=== PATIENT | female | born 1970 | race African-American/Black ===

== ENCOUNTER → 2020-12-07 13:01 | Outpatient (BNV) | payer OTHER, SELFPAY | PROVIDERS: PCP Internal Medicine; Referring Provider Internal Medicine; Visit Provider Internal Medicine Medical Oncology | DX: Z85.3 Personal history of malignant neoplasm of breast (principal); Z92.21 Personal history of antineoplastic chemotherapy; D50.9 Iron deficiency anemia, unspecified | CPT/HCPCS: 99204; 99213; 99214 ==

== ENCOUNTER 2021-04-01 13:31 | Outpatient (REF) | payer OTHER, SELFPAY | END 2021-04-01 13:32 | disposition home or self-care (01) | LOC: HO.MDS 13:31 | PROVIDERS: PCP Internal Medicine; Visit Provider Internal Medicine Medical Oncology | DX: D50.9 Iron deficiency anemia, unspecified (principal) | CPT/HCPCS: 96365; J1439 ==

== ENCOUNTER 2021-04-07 13:09 | Outpatient (REF) | payer OTHER, SELFPAY | END 2021-04-07 13:10 | disposition home or self-care (01) | LOC: HO.MDS 13:09 | PROVIDERS: PCP Internal Medicine; Visit Provider Internal Medicine Medical Oncology | DX: D50.9 Iron deficiency anemia, unspecified (principal) | CPT/HCPCS: 96365; J1439 ==

== ENCOUNTER → 2021-04-29 14:14 | Outpatient (BNVA) | payer OTHER, SELFPAY | PROVIDERS: PCP Internal Medicine; Referring Provider Internal Medicine; Visit Provider Nurse Practitioner Family | DX: Z12.11 Encounter for screening for malignant neoplasm of colon (principal) | CPT/HCPCS: 99202 ==

== ENCOUNTER 2021-07-15 13:08 | Day surgery (SDC) | payer OTHER, SELFPAY ==
--- NOTE | 2021-07-15 13:18 | MHC.SHP ---
Pre-Procedural Eval Section A Date of Service: 07/15/21 The patient is an INPATIENT: No The History & Physical has been completed within 30 days and I have reviewed it.: No Section B Chief Complaint: Screening Details of Present Illness: Colon cancer screening, anemia, abdominal pain Relevant Family History (Specify if Yes): Yes Relevant Social History: None Present Medications: see Short Stay Collaborative assessment Medical History: Significant History (History of anxiety History of pancytopenia History of seizures History of vitamin D deficiency Hx of alopecia Hx of breast cancer Hx of chronic inflammatory arthritis Hx of low back pain Hx of seasonal allergies Hx of sinusitis Hx of transfusion Seroma of breast) History of Previous Operations: Relevant previous surgery/procedure and date(s) (History of removal of Port-a-Cath Hx of section Hx of hysterectomy Hx of lumpectomy Hx of lymph node excision) Allergies: Allergies Allergy/AdvReac Type Severity Reaction Status Date / Time Penicillins Allergy Unknown Unknown Verified 07/11/21 15:57 minocycline AdvReac Unknown Unknown Verified 07/11/21 15:57 oxycodone [From Percocet] AdvReac Unknown Unknown Verified 07/11/21 15:57 Review of Systems Sugical H&P ROS: Negative: Constitution, Cardiovascular and Respiratory and Yes, Specify: Gastrointestinal (abd pain) Exam Surgical H&P Exam: Normal: Heart, Normal: Lungs, Normal: Extremities and Normal: Abdomen Plan Diagnosis/Plan: Unchanged I have reviewed the history and physical and performed a pertinent physical examination on my patient. No changes have occurred unless specified.
[2021-07-15 14:04] VITALS: BMI 25.7
[2021-07-15 14:19] VITALS: BP 125/77; PULSE 87; RESP 15; TEMP 36.2; O2SAT 100
--- NOTE | 2021-07-15 14:54 | HO.ANESPROP2 ---
HPI - Anesthesia Eval Consult details Narrative: 50yo female patient for EGD, Colonoscopy PMFSH Active Problems Active Problems: All Active Problems (Updated 07/15/21 @ 12:24 by Isidro Cerna MD) Breast cancer (Acute) Iron deficiency anemia (Acute) Past Medical History Medical History History of anxiety History of COVID-19 History of pancytopenia History of seizures History of vitamin D deficiency Hx of alopecia Hx of breast cancer Hx of chronic inflammatory arthritis Hx of low back pain Hx of seasonal allergies Hx of sinusitis Hx of transfusion Seroma of breast Family History Family History Mother Diabetes Hypertension Asthma Father Diabetes Paternal Grandfather Colon cancer Diabetes Hypertension Paternal Grandmother Diabetes Hypertension Maternal Grandmother Diabetes Hypertension Brother Diabetes Family history of problems with anesthesia: No Surgical History Surgical History History of removal of Port-a-Cath Hx of section Hx of hysterectomy Hx of lumpectomy Hx of lymph node excision History of Problems with Anesthesia: Yes (Ponv) Social History Social History Alcohol intake: former Patient Tobacco Use Status: Never used Tobacco Use of substances other than those prescribed or required for medical reasons: No Are you DNR?: No Advance Directives: No Advance Directives Information Provided: Yes Patient : No (Hysterectomy) Meds Allergies Allergy/AdvReac Type Severity Reaction Status Date / Time Penicillins Allergy Unknown Unknown Verified 07/11/21 15:57 minocycline AdvReac Unknown Unknown Verified 07/11/21 15:57 oxycodone [From Percocet] AdvReac Unknown Unknown Verified 07/11/21 15:57 Home Medications Medication Instructions Recorded Confirmed Last Taken Type anastrozole 1 mg tablet 1 tab PO DAILY 12/07/20 07/11/21 Unknown History cetirizine 10 mg tablet (Zyrtec) 10 mg PO DAILY 12/07/20 07/11/21 Unknown History lactobacillus combination no.4 3 3,000 mmu cells PO DAILY 12/07/20 07/11/21 Unknown History billion cell capsule (Probiotic) turmeric 400 mg capsule 400 mg PO DAILY 12/07/20 12/07/20 Unknown History ergocalciferol (vitamin D2) 1,250 cap PO 03/08/21 03/08/21 Unknown History mcg (50,000 unit) capsule Exam Exam Date and Time: July 15, 2021 1454 Height,Weight and Vital Signs: Height 5 ft 2 in Weight 63.957 kg Last Vital Signs Temp 97.1 F 07/15/21 14:19 Pulse 87 07/15/21 14:19 Resp 15 07/15/21 14:19 BP 125/77 07/15/21 14:19 Pulse Ox 100 07/15/21 14:19 Airway Mallampati Class: II TM Dist: >3cm Neck ROM: Full Loose/Missing/Broken Teeth: Yes (Missing a few) Heart: RRR Lungs: CTAB Assessment and Plan Assessment Anesthesia Assessment: Anesthesia Plan Discussed and Chart Reviewed Final Anesthetic Review Family History of Problems with Anesthesia: No History of Problems with Anesthesia: Yes (Ponv) NPO: Yes ASA Class: II Final Preanesthetic Review: No Changes in Pt Med Stat, Meds/Allgs Chart Reviewed, Consent Obtained/Reviewed and Anes Risks/Benef Reviewed Patient Risk: Low Procedure Risk: Low Assessment/Block/Sedation in SS: Assess/Block/Sedation-SS Anesthetic Plan Anesthetic Plan: MAC: Disposition: Standard PACU
--- NOTE | 2021-07-15 15:37 | PM.OP ---
Brief Operative Note Date of Service: 07/15/21 Pre-op diagnosis: Colon cancer screening, anemia, upper abdominal pain Post-op diagnosis: other (Gastritis, diverticulosis, hemorrhoids) Procedure: FLEXIBLE TRANSORAL UPPER GASTROINTESTINAL ENDOSCOPY WITH BIOPSIES AND COLONOSCOPY TILL CECUM UPPER ENDOSCOPY Consent: Indications for the procedure and potential complications of bleeding, perforation, reaction to medications and missed diagnosis were discussed with the patient and informed consent was obtained. Instrument: Olympus GIF H 190 mid size upper endoscope Monitoring: Vital signs and clinical assessment, continuous EKG monitoring, Pulse oximetry, Carbon Dioxide monitoring and blood pressure monitoring were done throughout the procedure. Procedure: The patient was placed in the left lateral decubitis position and pre-procedure medications were administered and a bite block was placed. The endoscope was inserted into the mouth and advanced under direct vision to the third part of duodenum. A careful inspection was made as the upper endoscope was withdrawn including a retroflexed examination of the proximal stomach; Findings and interventions are described below. Findings: Larynx: Normal Esophagus: GE junction at 36 cms. No esophagitis or Ruffin's. Stomach: Mild gastric erythema. Biopsies were obtained from the antrum and body of the stomach. Decreased fundal folds and Grade 2 flap valve on retroflexed examination of the cardia. Duodenum: Normal bulb and descending duodenum. Biopsies were obtained from 3rd part of duodenum to check for celiac sprue. Intervention: Biopsies as noted above COLONOSCOPY PROCEDURE NOTE Consent: Indications for the procedure and potential complications of bleeding, perforation, reaction to medications and missed diagnosis were discussed with the patient and informed consent was obtained. Instrument: Olympus PCF H 190 L variable stiffness pediatric colonoscope Monitoring: Vital signs and clinical assessment, intermittent blood pressure monitoring, continuous EKG monitoring, Pulse oximetry and Carbon Dioxide monitoring were done throughout the procedure. Colon withdrawl time was 11 minutes. Procedure: The patient was placed in the left lateral decubitis position and pre-procedure medications were administered. After a digital rectal examination of the ano-rectum, the video colonoscope was inserted into the rectum and advanced through the colon to the cecum. The colonoscope was slowly withdrawn in a retrograde panoramic fashion and the colon mucosa was carefully examined including a retroflexed view of the rectum. Findings and interventions are described below. Procedure Difficulty: : Without difficulty Findings: Terminal Ileum: Not evaluated Cecum: Normal Ascending Colon: Normal Transverse Colon: Normal Descending Colon: Moderate diverticulosis Sigmoid Colon: Moderate diverticulosis Rectum: Normal Ano-rectum: Small internal hemorrhoids in hypertrophied anal papilla Colon preparation: Good Impression and Post Procedure Diagnosis: Endoscopy Findings: STOMACH: Mild gastric erythema. Biopsies were obtained from the antrum and body of the stomach. Decreased fundal folds (suggestive of atrophic gastritis) and Grade 2 flap valve on retroflexed examination of the cardia. DUODENUM: Normal - biopsied to check for celiac sprue Colonoscopy Findings: No polyps were detected. Moderate diverticulosis seen in the left colon Small hemorrhoids on retroflexed exam. Plan: Await pathology results Patient has an appointment on 07/26/21 in the GI Clinic with Natalya Patino FNP-BC . Repeat Colonoscopy in 5 years due to personal history of breast cancer and FH of colon cancer. Above findings were reviewed with the patient and Gastritis and diverticulosis handouts were given in the discharge area Surgeon: Taurus Guerra MD Anesthesia: MAC Was an Relay Shop Supervisor used for this Procedure?: Yes Relay Shop Supervisor: Cristofer Bullock Estimated blood loss (mL): 0 Pathology: other (A- SMALL BOWEL BXS R/O SPRU B- GASTRIC ANTRUM BXS R/O H.PYLORI C- GASTRIC BODY BXS R/O GASTRITIS) Condition: stable Disposition: PACU
--- NOTE | 2021-07-15 15:38 | W.PM.OPN ---
Operative Note Operative Note Date of Service: 07/15/21 Narrative: Pre-op diagnosis:?Colon cancer screening, anemia, upper abdominal pain Post-op diagnosis:?other (Gastritis, diverticulosis, hemorrhoids) Procedure:? FLEXIBLE TRANSORAL UPPER GASTROINTESTINAL ENDOSCOPY WITH BIOPSIES AND COLONOSCOPY TILL CECUM UPPER ENDOSCOPY Consent:?Indications for the procedure and potential complications of bleeding, perforation, reaction to medications and missed diagnosis were discussed with the patient and informed consent was obtained. Instrument:?Olympus GIF H 190 mid size upper endoscope Monitoring: Vital signs and clinical assessment, continuous EKG monitoring, Pulse oximetry, Carbon Dioxide monitoring and blood pressure monitoring were done throughout the procedure. Procedure:?The patient was placed in the left lateral decubitis position and pre-procedure medications were administered and a bite block was placed. The endoscope was inserted into the mouth and advanced under direct vision to the third part of duodenum. A careful inspection was made as the upper endoscope was withdrawn including a retroflexed examination of the proximal stomach; Findings and interventions are described below. Findings: Larynx:? Normal Esophagus:?GE junction at 36 cms.? No esophagitis or Ruffin's. Stomach:?Mild gastric erythema. Biopsies were obtained from the antrum and body of the stomach. Decreased fundal folds and Grade 2 flap valve on retroflexed examination of the cardia. Duodenum:?Normal bulb and descending duodenum.? Biopsies were obtained from 3rd part of duodenum to check for celiac sprue. Intervention:?Biopsies as noted above COLONOSCOPY PROCEDURE NOTE Consent:?Indications for the procedure and potential complications of bleeding, perforation, reaction to medications and missed diagnosis were discussed with the patient and informed consent was obtained. Instrument:?Olympus PCF H 190 L variable stiffness pediatric colonoscope Monitoring:?Vital signs and clinical assessment, intermittent blood pressure monitoring, continuous EKG monitoring, Pulse oximetry and Carbon Dioxide monitoring were done throughout the procedure. Colon withdrawl time was 11 minutes. Procedure:?The patient was placed in the left lateral decubitis position and pre-procedure medications were administered. After a digital rectal examination of the ano-rectum, the video colonoscope was inserted into the rectum and advanced through the colon to the cecum. The colonoscope was slowly withdrawn in a retrograde panoramic fashion and the colon mucosa was carefully examined including a retroflexed view of the rectum. Findings and interventions are described below. Procedure Difficulty:?: Without difficulty Findings: Terminal Ileum: Not evaluated Cecum:? Normal Ascending Colon:??Normal Transverse Colon:??Normal Descending Colon: Moderate diverticulosis Sigmoid Colon:??Moderate diverticulosis Rectum:??Normal Ano-rectum:??Small internal hemorrhoids in hypertrophied anal papilla Colon preparation:? Good? Impression and Post Procedure Diagnosis: Endoscopy Findings: STOMACH:?Mild gastric erythema. Biopsies were obtained from the antrum and body of the stomach. Decreased fundal folds (suggestive of atrophic gastritis) and Grade 2 flap valve on retroflexed examination of the cardia. DUODENUM: Normal - biopsied to check for celiac sprue Colonoscopy Findings: No polyps were detected. Moderate diverticulosis seen in the left colon Small hemorrhoids on retroflexed exam. Plan: Await pathology results Patient has an appointment on 07/26/21 in the GI Clinic with? Natalya Patino FNP-ALINA . Repeat Colonoscopy in 5 years due to personal history of breast cancer and FH of colon cancer. Above findings were reviewed with the patient and Gastritis and diverticulosis handouts were given in the discharge area Surgeon:?Taurus Guerra MD Anesthesia:?MAC Was an Commercial Sales Consultant used for this Procedure?:?Yes Commercial Sales Consultant:?Cristofer Bullock Estimated blood loss (mL):?0 Pathology:?other (A- SMALL BOWEL BXS? R/O SPRU? B- GASTRIC ANTRUM BXS? R/O H.PYLORI? C- GASTRIC BODY BXS? R/O GASTRITIS) Condition:?stable Disposition:?PACU
[2021-07-15 16:20] VITALS: BP 82/46; PULSE 86; RESP 12; TEMP 36.9; O2SAT 99
== END 2021-07-15 17:12 | disposition home or self-care (01) ==
PROVIDERS: PCP Internal Medicine; Visit Provider Internal Medicine Gastroenterology
PROC: (CPT 45378; principal; 2021-07-15 13:30)
DX: Z12.11 Encounter for screening for malignant neoplasm of colon (principal); Z80.0 Family history of malignant neoplasm of digestive organs; K57.30 Diverticulosis of large intestine without perforation or abscess without bleeding; K64.8 Other hemorrhoids; K62.89 Other specified diseases of anus and rectum; C50.912 Malignant neoplasm of unspecified site of left female breast; Z17.0 Estrogen receptor positive status [ER+]; Z79.811 Long term (current) use of aromatase inhibitors; D64.9 Anemia, unspecified; K29.50 Unspecified chronic gastritis without bleeding; E55.9 Vitamin D deficiency, unspecified; Z88.0 Allergy status to penicillin; Z88.8 Allergy status to other drugs, medicaments and biological substances; Z86.16 Personal history of COVID-19
CPT/HCPCS: 45378; 43239; 88305; 88342

== ENCOUNTER → 2021-09-16 16:04 | Outpatient (BNVA) | payer OTHER, SELFPAY | PROVIDERS: PCP Internal Medicine; Referring Provider Internal Medicine; Visit Provider Nurse Practitioner Family | DX: K21.9 Gastro-esophageal reflux disease without esophagitis (principal); K57.90 Diverticulosis of intestine, part unspecified, without perforation or abscess without bleeding; R14.0 Abdominal distension (gaseous); K58.2 Mixed irritable bowel syndrome | CPT/HCPCS: 99212 ==

== ENCOUNTER 2021-10-21 14:35 | Inpatient (IN) | payer OTHER, SELFPAY ==
--- NOTE | ~2021-10-21 | CT_ITS ---
EXAMINATION: CT ANGIOGRAM OF THE CHEST WITH AND WITHOUT CONTRAST (CT PULMONARY ANGIOGRAM FOR PE) CLINICAL INFORMATION: Reason for Exam covid +, syncope COMPARISON: None TECHNIQUE: Prior to contrast administration, noncontrast localization images were obtained. Subsequently, multidetector volumetric imaging was performed from the thoracic inlet to below the diaphragms following the administration of 57 mL Omnipaque 350 intravenous contrast. No contrast reaction reported Sagittal, coronal, and MIP oblique sagittal reformatted images were obtained on the CT workstation, uploaded to PACS, and reviewed. This CT examination was performed using dose optimization techniques as appropriate, variously including the following: *Automated exposure control *Adjustment of mA and/or kV according to patient size (this includes techniques or standardized protocols for targeted exams where dose is matched to indication/reason for exam; i.e. extremities or head) *Use of iterative reconstruction technique Total exam dose-length product 153 mGy-cm FINDINGS: QUALITY OF STUDY/CONTRAST BOLUS: Satisfactory. PULMONARY ARTERIES: No central or segmental pulmonary emboli. THORACIC AORTA: No aneurysm or dissection. LUNG: Extensive multifocal airspace opacities with a peripheral and lower lung predominance. In this setting, evaluation of pulmonary nodules is suboptimal. The central airways are patent. PLEURA: No pleural effusion or pneumothorax. MEDIASTINUM: Normal heart size. No pericardial effusion. No hilar or mediastinal lymphadenopathy. No evidence of septal bowing or right heart strain. CHEST WALL/AXILLA: Surgical clips with associated irregular soft tissue thickening in the left breast (8:12). There are a few up to 0.5 cm soft tissue nodules in the right breast for example, as visualized on images 37 and 35 of series 5. There is also asymmetric, likely glandular tissue, in the medial aspect of the right breast on image 29 of series 5. There are prominent but not pathologically enlarged bilateral axillary lymph nodes. OSSEOUS STRUCTURES: No acute or suspicious osseous abnormality. UPPER ABDOMEN: Unremarkable. No reflux of contrast into the hepatic veins to suggest elevated right heart pressures. CT/CT angio chest PE protocol IMPRESSION: No evidence of pulmonary emboli nor increased right-sided heart pressures. Extensive multifocal airspace opacities concerning for a diffuse atypical infectious process such as Covid pneumonia. Indeterminate soft tissue nodularities and postsurgical changes in the breasts for which correlation with prior mammographic examinations is recommended. VTE: negative
--- NOTE | 2021-10-21 14:53 | ECG_ITS ---
Test Reason : SOB Blood Pressure : / mmHG Vent. Rate : 108 BPM Atrial Rate : 108 BPM P-R Int : 128 ms QRS Dur : 068 ms QT Int : 306 ms P-R-T Axes : 073 036 019 degrees QTc Int : 410 ms Sinus tachycardia Otherwise normal ECG No previous ECGs available Referred By: Jammie Mclain Electronically Signed By:CLAUDIA ROACH MD
--- NOTE | 2021-10-21 14:59 | ED.SOB ---
HPI - SOB/Dyspnea General Chief Complaint: Dyspnea Stated Complaint: diff breathing/covid + Time Seen by Provider: 10/21/21 14:38 Source: patient and EMS Mode of arrival: EMS Limitations: no limitations History of Present Illness HPI Narrative: Patient comes to the emergency room complaining of shortness of breath. Patient states that she tested positive for COVID-19 4 days ago. Patient reports that her shortness of breath has gradually began getting worse. Three days ago, patient reports that she had a syncopal episode, states that she was taking a shower, then she woke up on the floor, states she does not know how long she was unconscious. Patient states that she has no chest pain. Patient states that she did not see any blood on the floor from lacerations. Patient has no pain from the fall. Related Data Home Medications Medication Instructions Recorded Confirmed cetirizine 10 mg tablet (Zyrtec) 10 mg PO DAILY PRN 12/07/20 10/21/21 cholecalciferol (vitamin D3) 25 25 mcg PO DAILY 10/21/21 10/21/21 mcg (1,000 unit) tablet (Vitamin D3) elderberry fruit 200 mg capsule 200 mg PO DAILY 10/21/21 10/21/21 Previous Rx's Medication Instructions Recorded anastrozole 1 mg tablet 1 mg PO DAILY #90 tab 10/05/21 Allergies Allergy/AdvReac Type Severity Reaction Status Date / Time Penicillins Allergy Unknown Unknown Verified 09/16/21 16:10 minocycline AdvReac Unknown Unknown Verified 09/16/21 16:10 oxycodone [From Percocet] AdvReac Unknown Unknown Verified 09/16/21 16:10 Review of Systems Review of Systems: Constitutional : No Weight loss, No Fever, No Chills, No Night Sweats, No Fatigue, No Malaise ENT/Mouth : No Hearing loss, No Ear Pain, No Nasal Congestion, No Sinus Pain, No Hoarseness, No sore throat, No Rhinorrhea, No Swallowing Difficulty Eyes: No Eye Pain, No Swelling, No Redness, No Foreign Body, No Discharge, No Vision Changes Cardiovascular : No Chest Pain, no palpitations, no orthopnea Respiratory : Complaining of dry Cough, No Sputum, No Wheezing, No Smoke Exposure, complaining of worsening dyspnea Gastrointestinal : No Nausea, No Vomiting, No Diarrhea, No Constipation, No abdominal Pain, No Hematochezia, No Melena Genitourinary : no irregular bleeding, No Dysuria, No Urinary Frequency, No Hematuria, No Urinary Incontinence, No Urgency, No Flank Pain, No Urinary Flow Changes, No Hesitancy Musculoskeletal : No joint pain, No Myalgias, No Joint Swelling Skin : No Skin Lesions, No rash Neuro : No Weakness, No Numbness, No Paresthesias, no headache, no dizziness, complaining of wound syncopal episode approximately 48 hours ago Psych : No Anxiety/Panic, No Depression, No SI/HI/AH/VH, No Social Issues, Heme/Lymph: No Bruising, No Bleeding,No Lymphadenopathy Endocrine : No Polyuria, No Polydipsia, No Temperature Intolerance [facility] Past Medical History Medical History History of anxiety History of COVID-19 History of pancytopenia History of seizures History of vitamin D deficiency Hx of alopecia Hx of breast cancer Hx of chronic inflammatory arthritis Hx of low back pain Hx of seasonal allergies Hx of sinusitis Hx of transfusion Seroma of breast Surgical History History of esophagogastroduodenoscopy (EGD) History of removal of Port-a-Cath Hx of section Hx of colonoscopy Hx of hysterectomy Hx of lumpectomy Hx of lymph node excision Family History Family History Mother Diabetes Hypertension Asthma Father Diabetes Paternal Grandfather Colon cancer Diabetes Hypertension Paternal Grandmother Diabetes Hypertension Maternal Grandmother Diabetes Hypertension Brother Diabetes Social History Social History Alcohol intake: former Patient Tobacco Use Status: Never used Tobacco Advance Directives: No Advance Directives Information Provided: Yes Physical Exam Vital Signs: Vital Signs: Last Vital Signs Temp 98.7 F 10/21/21 15:51 Pulse 104 H 10/21/21 15:51 Resp 16 10/21/21 15:51 BP 121/79 10/21/21 15:51 Pulse Ox 94 10/21/21 15:51 BMI result Body Mass Index 25.6 Const: Other: Appearance: Alert. Oriented X3. No acute distress. Ill-appearing Eyes: Pupils equal, round and reactive to light. ENT: Pharynx normal. Neck: Normal inspection. Neck supple. No lymph nodes noted. No crepitus CVS: Normal heart rate and rhythm. Pulses normal. Normal S1 and S2 Respiratory: No respiratory distress. Breath sounds normal. No Wheezing. No rales . Oxygen saturation drops to 87% on room air at rest Abdomen: Soft and nontender. No rigidity. No distention. Skin: Skin warm and dry. Normal skin color. Normal skin turgor. Extremities: No lower extremity edema. No Lacerations. No Rash Neuro: Oriented X 3. No motor deficit. No sensory deficit. Moving all extermities. No slurred speech. Course Course Course Narrative: With blood cell count and lactic acid within normal limits, no fever, blood pressure stable. Sepsis is not suspected. Patient is empirically being treated with antibiotics for pneumonia Patient oxygen saturation drops to 87% on room air. Patient's oxygen saturation improved to 94 to 96% on 2 L. I discussed the patient with Dr. Brown. Patient being admitted MDM - SOB/Dyspnea Lab Data Result diagrams: 10/21/21 15:47 10/21/21 15:48 Labs: Lab Results 10/21/21 10/21/21 10/21/21 Range/Units 15:47 15:48 15:48 WBC 6.0 (4.8-10.8) X10*3/uL RBC 3.93 L (4.20-5.50) X10*6/uL Hgb 11.6 L (12.0-16.0) g/dl Hct 34.8 L (37.0-47.0) % MCV 88.5 (80.0-98.0) fL MCH 29.5 (27.0-33.0) pg MCHC 33.3 (31.0-35.0) g/dl RDW 11.9 (11.0-16.0) % Plt Count 197 (160-400) X10*3/uL MPV 9.5 (9.4-12.3) fL Immature Gran % (Auto) 0.3 (0.0-0.4) % Neut % (Auto) 78.5 H (45-73) % Lymph % (Auto) 15.1 L (20-40) % Baxter % (Auto) 5.9 (2-11) % Eos % (Auto) 0.0 (0-4) % Baso % (Auto) 0.2 (0-2) % Lymph # (Auto) 0.9 L (1.2-4.9) X10*3/uL Baxter # (Auto) 0.4 (0.1-1.2) X10*3/uL Eos # (Auto) 0.0 (0.0-0.4) X10*3/uL Baso # (Auto) 0.0 (0.0-0.2) X10*3/uL Abs Immat Gran (auto) 0.02 (0.00-0.03) X10*3/uL Absolute Neuts (auto) 4.7 (2.0-8.3) x10*3/uL Absolute Nucleated RBC 0.000 (0.0-0.012) X10*3/uL Nucleated RBC % (auto) 0.0 (0.0-0.2) /100WBC Smear Tech's Comments VERIFIED PT 14.7 H (9.9-13.0) SEC INR 1.3 H (0.9-1.1) D-Dimer High Sensitivty 357 NG/ML VBG pH (7.32-7.43) VBG pCO2 mmHg VBG pO2 mmHg VBG HCO3 (22-26) mmol/L VBG O2 Saturation % VBG Base Excess mmol/L Sodium 141 (135-145) mmol/L Potassium 3.9 (3.3-5.1) mmol/L Chloride 107 (96-108) mmol/L Carbon Dioxide 23 (22-29) mmol/L Anion Gap 15 (12-20) BUN 14 (9-16) mg/dL Creatinine 0.77 (0.5-1.4) mg/dL Estim Creat Clear Calc 77.4 Estimated GFR > 60 Random Glucose 90 (60-115) mg/dL Lactic Acid (0.5-2.0) mmol/L Calcium 8.6 D (8.4-10.2) mg/dL Ferritin 85642 H (10-250) ng/mL Total Bilirubin 0.5 (0.0-1.0) mg/dL Direct Bilirubin 0.3 (0.0-0.5) mg/dL AST 73 H (5-31) U/L ALT 50 H (0-31) U/L Alkaline Phosphatase 66 D (39-117) U/L Lactate Dehydrogenase 686 H (122-220) U/L Troponin I High Sens (<3.5-17.0) ng/L Total Protein 6.8 (6.5-8.0) g/dL Albumin 3.6 D (3.5-5.0) g/dL Lipase 36 (8-78) U/L COVID-19 ([facility]) (Negative) COVID-19 Clin Com 10/21/21 10/21/21 10/21/21 Range/Units 15:48 15:49 15:50 WBC (4.8-10.8) X10*3/uL RBC (4.20-5.50) X10*6/uL Hgb (12.0-16.0) g/dl Hct (37.0-47.0) % MCV (80.0-98.0) fL MCH (27.0-33.0) pg MCHC (31.0-35.0) g/dl RDW (11.0-16.0) % Plt Count (160-400) X10*3/uL MPV (9.4-12.3) fL Immature Gran % (Auto) (0.0-0.4) % Neut % (Auto) (45-73) % Lymph % (Auto) (20-40) % Baxter % (Auto) (2-11) % Eos % (Auto) (0-4) % Baso % (Auto) (0-2) % Lymph # (Auto) (1.2-4.9) X10*3/uL Baxter # (Auto) (0.1-1.2) X10*3/uL Eos # (Auto) (0.0-0.4) X10*3/uL Baso # (Auto) (0.0-0.2) X10*3/uL Abs Immat Gran (auto) (0.00-0.03) X10*3/uL Absolute Neuts (auto) (2.0-8.3) x10*3/uL Absolute Nucleated RBC (0.0-0.012) X10*3/uL Nucleated RBC % (auto) (0.0-0.2) /100WBC Smear Tech's Comments PT (9.9-13.0) SEC INR (0.9-1.1) D-Dimer High Sensitivty NG/ML VBG pH (7.32-7.43) VBG pCO2 mmHg VBG pO2 mmHg VBG HCO3 (22-26) mmol/L VBG O2 Saturation % VBG Base Excess mmol/L Sodium (135-145) mmol/L Potassium (3.3-5.1) mmol/L Chloride (96-108) mmol/L Carbon Dioxide (22-29) mmol/L Anion Gap (12-20) BUN (9-16) mg/dL Creatinine (0.5-1.4) mg/dL Estim Creat Clear Calc Estimated GFR Random Glucose (60-115) mg/dL Lactic Acid 0.8 (0.5-2.0) mmol/L Calcium (8.4-10.2) mg/dL Ferritin (10-250) ng/mL Total Bilirubin (0.0-1.0) mg/dL Direct Bilirubin (0.0-0.5) mg/dL AST (5-31) U/L ALT (0-31) U/L Alkaline Phosphatase (39-117) U/L Lactate Dehydrogenase (122-220) U/L Troponin I High Sens 20.2 H (<3.5-17.0) ng/L Total Protein (6.5-8.0) g/dL Albumin (3.5-5.0) g/dL Lipase (8-78) U/L COVID-19 ([facility]) Positive A (Negative) COVID-19 Clin Com See Note 10/21/21 Range/Units 16:57 WBC (4.8-10.8) X10*3/uL RBC (4.20-5.50) X10*6/uL Hgb (12.0-16.0) g/dl Hct (37.0-47.0) % MCV (80.0-98.0) fL MCH (27.0-33.0) pg MCHC (31.0-35.0) g/dl RDW (11.0-16.0) % Plt Count (160-400) X10*3/uL MPV (9.4-12.3) fL Immature Gran % (Auto) (0.0-0.4) % Neut % (Auto) (45-73) % Lymph % (Auto) (20-40) % Baxter % (Auto) (2-11) % Eos % (Auto) (0-4) % Baso % (Auto) (0-2) % Lymph # (Auto) (1.2-4.9) X10*3/uL Baxter # (Auto) (0.1-1.2) X10*3/uL Eos # (Auto) (0.0-0.4) X10*3/uL Baso # (Auto) (0.0-0.2) X10*3/uL Abs Immat Gran (auto) (0.00-0.03) X10*3/uL Absolute Neuts (auto) (2.0-8.3) x10*3/uL Absolute Nucleated RBC (0.0-0.012) X10*3/uL Nucleated RBC % (auto) (0.0-0.2) /100WBC Smear Tech's Comments PT (9.9-13.0) SEC INR (0.9-1.1) D-Dimer High Sensitivty NG/ML VBG pH 7.45 H (7.32-7.43) VBG pCO2 31 mmHg VBG pO2 140 mmHg VBG HCO3 22 (22-26) mmol/L VBG O2 Saturation 99.0 % VBG Base Excess -0.7 mmol/L Sodium (135-145) mmol/L Potassium (3.3-5.1) mmol/L Chloride (96-108) mmol/L Carbon Dioxide (22-29) mmol/L Anion Gap (12-20) BUN (9-16) mg/dL Creatinine (0.5-1.4) mg/dL Estim Creat Clear Calc Estimated GFR Random Glucose (60-115) mg/dL Lactic Acid (0.5-2.0) mmol/L Calcium (8.4-10.2) mg/dL Ferritin (10-250) ng/mL Total Bilirubin (0.0-1.0) mg/dL Direct Bilirubin (0.0-0.5) mg/dL AST (5-31) U/L ALT (0-31) U/L Alkaline Phosphatase (39-117) U/L Lactate Dehydrogenase (122-220) U/L Troponin I High Sens (<3.5-17.0) ng/L Total Protein (6.5-8.0) g/dL Albumin (3.5-5.0) g/dL Lipase (8-78) U/L COVID-19 ([facility]) (Negative) COVID-19 Clin Com Discharge Plan Discharge Clinical Impression: Pneumonia due to 2019-nCoV Patient Disposition: Admitted As Inpatient Prescriptions: No Action anastrozole 1 mg Tablet 1 mg PO DAILY Qty: 90 RF: 4 cetirizine [Zyrtec] 10 mg Tablet 10 mg PO DAILY PRN (Reason: Allergy Symptoms) RF: 0 Elderberry 200 mg Capsule 200 mg PO DAILY RF: 0 cholecalciferol (vitamin D3) [Vitamin D3] 25 mcg (1,000 unit) Tablet 25 mcg PO DAILY RF: 0
[2021-10-21 15:18] VITALS: BP 128/90; BP 140/98; PULSE 111; PULSE 115; RESP 22; TEMP 37.8; O2SAT 87; BMI 25.6
[2021-10-21] MEDS: 0.9 % Sodium Chloride 1,000 ML 999 ML IVCONT (15:46)
[2021-10-21 15:51] VITALS: BP 121/79; PULSE 104; RESP 16; TEMP 37.1; O2SAT 94
[2021-10-21 16:25] LABS: Basophils Percent Auto 0.2 % (0-2); Hematocrit 34.8 % (37.0-47.0); Hemoglobin 11.6 g/dl (12.0-16.0); Imm Gran Abs Auto 0.02 X10*3/uL (0.00-0.03); Imm Gran Pct Auto 0.3 % (0.0-0.4); Lymphocytes Absolute Auto 0.9 X10*3/uL (1.2-4.9); Lymphocytes Percent Auto 15.1 % (20-40); MANUAL DIFF FLAG SCAN; Mean Corpuscular HGB Conc 33.3 g/dl (31.0-35.0); Mean Corpuscular Hemoglobin 29.5 pg (27.0-33.0); Mean Corpuscular Volume 88.5 fL (80.0-98.0); Mean Platelet Volume 9.5 fL (9.4-12.3); Monocytes Absolute Auto 0.4 X10*3/uL (0.1-1.2); Monocytes Percent Auto 5.9 % (2-11); Neutrophils Absolute Auto 4.7 x10*3/uL (2.0-8.3); Neutrophils Percent Auto 78.5 % (45-73); Platelet Count 197 X10*3/uL (160-400); Red Blood Count 3.93 X10*6/uL (4.20-5.50); Red Cell Distribution Width 11.9 % (11.0-16.0); SCAN SMEAR FLAG 1
[2021-10-21 16:27] LABS: INTERNATIONAL NORM RATIO 1.3 (0.9-1.1); Prothrombin Time 14.7 SEC (9.9-13.0)
[2021-10-21 16:34] LABS: Lactic Acid 0.8 mmol/L (0.5-2.0)
[2021-10-21 16:37] LABS: COVID-19 Test Positive (Negative); IDNOW Serial# 9DD0AD1C
--- NOTE | 2021-10-21 16:42 | PHA.MEDREC ---
Pharmacy Consult ? Medication Reconciliation Pharmacy has completed the medication reconciliation. Spoke with patient.
[2021-10-21 16:44] LABS: Alanine Aminotransferase 50 U/L (0-31); Albumin Level 3.6 g/dL (3.5-5.0); Alkaline Phosphatase 66 U/L (39-117); Anion Gap 15 (12-20); Aspartate Amino Transferase 73 U/L (5-31); Bilirubin Direct 0.3 mg/dL (0.0-0.5); Bilirubin Total 0.5 mg/dL (0.0-1.0); Blood Urea Nitrogen 14 mg/dL (9-16); Calcium 8.6 mg/dL (8.4-10.2); Carbon Dioxide 23 mmol/L (22-29); Chloride 107 mmol/L (96-108); Creatinine Clr Calc Pharmacy 77.4; Estimated Glomerular Filt Rate > 60; Glucose Random 90 mg/dL (60-115); Lipase 36 U/L (8-78); Potassium 3.9 mmol/L (3.3-5.1); Sodium 141 mmol/L (135-145); Total Protein 6.8 g/dL (6.5-8.0)
[2021-10-21 16:46] LABS: Troponin-I High Sensitivity 20.2 ng/L (<3.5-17.0)
[2021-10-21 16:47] LABS: SLIDE REVIEW VERIFIED
[2021-10-21 16:54] LABS: Lactate Dehydrogenase 686 U/L (122-220)
[2021-10-21 17:02] LABS: Venous Blood Gas Refer to POC result
[2021-10-21 17:03] LABS: VBG Base Excess -0.7 mmol/L; VBG HCO3 22 mmol/L (22-26); VBG pCO2 31 mmHg; VBG pH 7.45 (7.32-7.43); VBG pO2 140 mmHg
[2021-10-21] MEDS: iohexoL 350 MG/ML 100 ML INFUS..BTL IV (17:27)
[2021-10-21] MEDS: dexAMETHasone sod phosphate 4 MG/ML VIAL 6 MG IVPUSH (17:30)
[2021-10-21 17:35] LABS: D Dimer High Sensitivity 357 NG/ML
[2021-10-21 17:42] LABS: Ferritin 11888 ng/mL (10-250)
--- NOTE | 2021-10-21 18:53 | PC.NURSE ---
PATIENT WAS ASSISTED TO THE BATHROOM BY THIS PCT .
[2021-10-21 18:54] VITALS: BP 126/72; PULSE 72; RESP 16; TEMP 36.9; O2SAT 97
[2021-10-21] MEDS: Dextrose 5 % and 0.45 % NaCl 1,000 ML 100 ML IVCONT (19:00)
--- NOTE | 2021-10-21 19:09 | P.HPHOSP_ITS ---
History of Present Illness Date of Service: 10/21/21 Chief Complaint: Shortness of breath 50-year-old unvaccinated female presents with 4 days of worsening cough and exertional shortness of breath. She also states fevers to 101. She states today she had increasing cough and shortness of breath which prompted her to seek treatment. In the emergency room COVID swab positive; CTA of chest fail to demonstrate acute pulmonary emboli however did show diffuse interstitial pneumonia consistent with COVID 19. She will be admitted for treatment of the same Review of Systems Review of Systems: denies chest pain Admits to exertional shortness of breath Denies nausea vomiting admits to diarrhea And wrist fever and chills PMFSH Medical History History of anxiety History of COVID-19 History of pancytopenia History of seizures History of vitamin D deficiency Hx of alopecia Hx of breast cancer Hx of chronic inflammatory arthritis Hx of low back pain Hx of seasonal allergies Hx of sinusitis Hx of transfusion Seroma of breast Family History Mother Diabetes Hypertension Asthma Father Diabetes Paternal Grandfather Colon cancer Diabetes Hypertension Paternal Grandmother Diabetes Hypertension Maternal Grandmother Diabetes Hypertension Brother Diabetes Surgical History History of esophagogastroduodenoscopy (EGD) History of removal of Port-a-Cath Hx of section Hx of colonoscopy Hx of hysterectomy Hx of lumpectomy Hx of lymph node excision Social History Alcohol intake: former Patient Tobacco Use Status: Never used Tobacco Advance Directives: No Advance Directives Information Provided: Yes Meds Allergies Allergy/AdvReac Type Severity Reaction Status Date / Time Penicillins Allergy Unknown Unknown Verified 09/16/21 16:10 minocycline AdvReac Unknown Unknown Verified 09/16/21 16:10 oxycodone [From Percocet] AdvReac Unknown Unknown Verified 09/16/21 16:10 Active Medications: Current Medications Acetaminophen (Acetaminophen 325 Mg Tablet) 650 mg PO Q6H PRN PRN Reason: Pain, Mild (Pain Scale 1-3) Anastrozole (Anastrozole 1 Mg Tablet) 1 mg PO DAILY [facility] Enoxaparin Sodium (Enoxaparin Sodium 40 Mg/0.4 Ml Syringe) 40 mg SUBCUT Q24H [facility] Levofloxacin (Levaquin) 500 mg in 100 mls @ 100 mls/hr IV ONCE ONE Stop: 10/21/21 19:29 Dextrose/Sodium Chloride (D51/2ns) 1,000 mls @ 100 mls/hr IVCONT .Q10H [facility] Loratadine (Loratadine 10 Mg Tablet) 10 mg PO DAILY PRN PRN Reason: Allergy Symptoms Morphine Sulfate (Morphine Sulfate 2 Mg/Ml Cartridge) 2 mg IVPUSH ONCE ONE; Protocol Stop: 10/21/21 19:06 Non-Formulary Medication (Elderberry Fruit) 200 mg PO DAILY [facility] Pharmacy Consult (Consult Rx Perform Med Rec) 1 each MISCELLANE ONCE PRN PRN Reason: Consult order Sodium Chloride (0.9 % Sodium Chloride Flush 3 Ml Syringe) 3 ml IVFLUSH QSHIFT [facility] Vitamin D (Cholecalciferol (Vitamin D3) 25 Mcg Tablet) 25 mcg PO DAILY [facility] Home Medications Medication Instructions Recorded Confirmed Last Taken Type cetirizine 10 mg tablet (Zyrtec) 10 mg PO DAILY PRN 12/07/20 10/21/21 Unknown History cholecalciferol (vitamin D3) 25 25 mcg PO DAILY 10/21/21 10/21/21 10/20/21 History mcg (1,000 unit) tablet (Vitamin D3) elderberry fruit 200 mg capsule 200 mg PO DAILY 10/21/21 10/21/21 Unknown History Physical Exam Vital Signs and Narrative: Vital Signs: Last Vital Signs Temp 98.4 F 10/21/21 18:54 Pulse 72 10/21/21 18:54 Resp 16 10/21/21 18:54 BP 126/72 10/21/21 18:54 Pulse Ox 97 10/21/21 18:54 BMI result Body Mass Index 25.6 Const: Other: ill-appearing female no acute distress HENMT: Other: oropharynx clear membranes dry Resp: Other: diminished at bases with crackles bilateral lower morales Cardio: Other: no S4; positive S1-S2; no S3 murmurs rubs or gallops GI: Other: soft nontender nondistended with normoactive bowel sounds. No rebound or guarding Neuro: Other: cranial nerves 2-12 grossly intact as tested. Motor is 5/5 all extremities. Sensation intact. Cognition appropriate Extrem: Other: no edema bilaterally Results Labs CBC and Chem 7: 10/21/21 15:47 10/21/21 15:48 Labs: Laboratory Results - last 24 hr 10/21/21 10/21/21 10/21/21 15:47 15:48 15:48 MCV 88.5 MCH 29.5 MCHC 33.3 RDW 11.9 Plt Count 197 MPV 9.5 Immature Gran % (Auto) 0.3 Neut % (Auto) 78.5 H Lymph % (Auto) 15.1 L Walker % (Auto) 5.9 Eos % (Auto) 0.0 Baso % (Auto) 0.2 Lymph # (Auto) 0.9 L Walker # (Auto) 0.4 Eos # (Auto) 0.0 Baso # (Auto) 0.0 Abs Immat Gran (auto) 0.02 Absolute Neuts (auto) 4.7 Absolute Nucleated RBC 0.000 Nucleated RBC % (auto) 0.0 Smear Tech's Comments VERIFIED PT 14.7 H INR 1.3 H D-Dimer High Sensitivty 357 VBG pH VBG pCO2 VBG pO2 VBG HCO3 VBG O2 Saturation VBG Base Excess Anion Gap 15 Estim Creat Clear Calc 77.4 Estimated GFR > 60 Random Glucose 90 Lactic Acid Calcium 8.6 D Ferritin 47567 H Total Bilirubin 0.5 Direct Bilirubin 0.3 AST 73 H ALT 50 H Alkaline Phosphatase 66 D Lactate Dehydrogenase 686 H Troponin I High Sens Total Protein 6.8 Albumin 3.6 D Lipase 36 COVID-19 ([facility]) COVID-19 Clin Com 10/21/21 10/21/21 10/21/21 15:48 15:49 15:50 MCV MCH MCHC RDW Plt Count MPV Immature Gran % (Auto) Neut % (Auto) Lymph % (Auto) Walker % (Auto) Eos % (Auto) Baso % (Auto) Lymph # (Auto) Walker # (Auto) Eos # (Auto) Baso # (Auto) Abs Immat Gran (auto) Absolute Neuts (auto) Absolute Nucleated RBC Nucleated RBC % (auto) Smear Tech's Comments PT INR D-Dimer High Sensitivty VBG pH VBG pCO2 VBG pO2 VBG HCO3 VBG O2 Saturation VBG Base Excess Anion Gap Estim Creat Clear Calc Estimated GFR Random Glucose Lactic Acid 0.8 Calcium Ferritin Total Bilirubin Direct Bilirubin AST ALT Alkaline Phosphatase Lactate Dehydrogenase Troponin I High Sens 20.2 H Total Protein Albumin Lipase COVID-19 ([facility]) Positive A COVID-19 Clin Com See Note 10/21/21 16:57 MCV MCH MCHC RDW Plt Count MPV Immature Gran % (Auto) Neut % (Auto) Lymph % (Auto) Walker % (Auto) Eos % (Auto) Baso % (Auto) Lymph # (Auto) Walker # (Auto) Eos # (Auto) Baso # (Auto) Abs Immat Gran (auto) Absolute Neuts (auto) Absolute Nucleated RBC Nucleated RBC % (auto) Smear Tech's Comments PT INR D-Dimer High Sensitivty VBG pH 7.45 H VBG pCO2 31 VBG pO2 140 VBG HCO3 22 VBG O2 Saturation 99.0 VBG Base Excess -0.7 Anion Gap Estim Creat Clear Calc Estimated GFR Random Glucose Lactic Acid Calcium Ferritin Total Bilirubin Direct Bilirubin AST ALT Alkaline Phosphatase Lactate Dehydrogenase Troponin I High Sens Total Protein Albumin Lipase COVID-19 ([facility]) COVID-19 Clin Com Imaging Radiologist's Impressions: Impressions Chest CTA 10/21/21 17:34 IMPRESSION: No evidence of pulmonary emboli nor increased right-sided heart pressures. Extensive multifocal airspace opacities concerning for a diffuse atypical infectious process such as Covid pneumonia. Indeterminate soft tissue nodularities and postsurgical changes in the breasts for which correlation with prior mammographic examinations is recommended. VTE: negative Assessment and Plan (1) Pneumonia due to 2019-nCoV: Status: Acute 50-year-old unvaccinated female presents with 4 days of worsening pro ductive cough and shortness of breath. Initial evaluation consistent with COVID-19 pneumonia 1. COVID-19 pneumonia supplemental O2 to keep sats greater than or equal to 90% IV Decadron 6 mg daily Discussed with ID; given abnormal LFTs not prescribe redesmivir 2. transaminitis likely related COVID-19 Follow-up clinically full code Lovenox Quality Stroke Does the patient have a stroke diagnosis?: No VTE Prior VTE?: No VTE Risk Level:: Medical - moderate - high VTE Device Contraindication: Treatment Not Indicated VTE Drug Contraindication: N/A - Med Ordered
[2021-10-21 19:43] VITALS: BP 136/92; PULSE 98; RESP 16; O2SAT 94
[2021-10-21 19:50] LABS: Procalcitonin 0.14 ng/mL
[2021-10-21] MEDS: Ketorolac Tromethamine 30 MG/ML VIAL 15 MG IVPUSH (20:41)
[2021-10-21] MEDS: levoFLOXacin/D5W 500 MG/100 ML PIGGYBACK 100 MG IV (20:42)
[2021-10-21] MEDS: Enoxaparin Sodium 40 MG/0.4 ML SYRINGE SUBCUT (20:43)
[2021-10-22] VITALS (10 sets, daily range): BP systolic 122–151; BP diastolic 56–99; PULSE 76–94; RESP 16–20; TEMP 36.5–36.9; O2SAT 91–98; BMI 25.0
[2021-10-22] MEDS: 0.9 % Sodium Chloride Flush 3 ML SYRINGE IVFLUSH ×3 (01:25→22:10)
--- NOTE | 2021-10-22 02:29 | PC.NURSE ---
I assumed care of this pt at 1900. Since then the pt has remained alert and oriented x 3, extremely soft spoken. Respirations are spontaneous and non-labored, RR 16, )2 sat's 05% or better on 2L nasal cannula, pt is speaking in full sentences, no cyanosis. The pt denies chest pain at rest but admits to some pleuritic chest pain with deep inspiration or coughing. She requested Toradol for this - hospitalist notified, Toradol ordered and given. The pt has ambulated to and from the bathroom independently and with steady gait. She is taking PO fluids and meds without difficulty. +nausea, no vomiting. Will continue to monitor.
[2021-10-22] MEDS: Dextrose 5 % and 0.45 % NaCl 1,000 ML 100 ML IVCONT (06:16)
[2021-10-22 07:40] LABS: Hematocrit 38.4 % (37.0-47.0); Hemoglobin 12.6 g/dl (12.0-16.0); Imm Gran Abs Auto 0.03 X10*3/uL (0.00-0.03); Imm Gran Pct Auto 0.8 % (0.0-0.4); Lymphocytes Absolute Auto 0.6 X10*3/uL (1.2-4.9); MANUAL DIFF FLAG SCAN; Mean Corpuscular HGB Conc 32.8 g/dl (31.0-35.0); Mean Corpuscular Hemoglobin 29.4 pg (27.0-33.0); Mean Corpuscular Volume 89.5 fL (80.0-98.0); Mean Platelet Volume 9.4 fL (9.4-12.3); Monocytes Absolute Auto 0.2 X10*3/uL (0.1-1.2); Monocytes Percent Auto 3.8 % (2-11); Neutrophils Absolute Auto 3.2 x10*3/uL (2.0-8.3); Neutrophils Percent Auto 80.4 % (45-73); Platelet Count 232 X10*3/uL (160-400); Red Blood Count 4.29 X10*6/uL (4.20-5.50); SCAN SMEAR FLAG 1; White Blood Count 3.9 X10*3/uL (4.8-10.8)
[2021-10-22 08:02] LABS: Alanine Aminotransferase 51 U/L (0-31); Albumin Level 3.7 g/dL (3.5-5.0); Alkaline Phosphatase 68 U/L (39-117); Anion Gap 16 (12-20); Aspartate Amino Transferase 65 U/L (5-31); Bilirubin Total 0.6 mg/dL (0.0-1.0); Blood Urea Nitrogen 16 mg/dL (9-16); Carbon Dioxide 22 mmol/L (22-29); Chloride 109 mmol/L (96-108); Creatinine Clr Calc Pharmacy 75.4; Estimated Glomerular Filt Rate > 60; Glucose Fasting 107 mg/dL (60-99); Potassium 4.2 mmol/L (3.3-5.1); Sodium 143 mmol/L (135-145); Total Protein 7.2 g/dL (6.5-8.0)
[2021-10-22 08:08] LABS: SLIDE REVIEW VERIFIED
[2021-10-22] MEDS: Anastrozole 1 MG TABLET PO (09:46)
[2021-10-22] MEDS: Cholecalciferol (Vitamin D3) 25 MCG TABLET PO (09:46)
[2021-10-22] MEDS: dexAMETHasone sod phosphate 4 MG/ML VIAL 6 MG IVPUSH (09:46)
[2021-10-22] MEDS: Ketorolac Tromethamine 30 MG/ML VIAL 15 MG IVPUSH ×2 (10:00→22:12)
--- NOTE | 2021-10-22 10:04 | PC.NURSE ---
PT REPORTS NAUSEA AND BODYACHES AND INCREASED SOB. SHE WAS MEDICATED CHARTED AND MD AWARE OF STATED COMPLAINTS. SHE IS REFUSING IV FLUIDS
--- NOTE | 2021-10-22 12:24 | P.PNIM_ITS ---
Subjective Subjective Date of Service: 10/22/21 Interval History: no acute issues overnight. . . No change in respiratory status Review of Systems denies chest pain except with cough Shortness of breath with minimal exertion Denies vomiting diarrhea; admits nausea Physical Exam Vital Signs: Vital Signs: Last Vital Signs Temp 98.1 F 10/22/21 07:46 Pulse 83 10/22/21 09:58 Resp 18 10/22/21 09:58 BP 128/82 10/22/21 07:46 Pulse Ox 95 10/22/21 09:58 BMI result Body Mass Index 25.6 Const: Other: ill-appearing female no acute distress HENMT: Other: oropharynx clear membranes dry Resp: Other: diminished at bases with crackles bilateral lower morales Cardio: Other: no S4; positive S1-S2; no S3 murmurs rubs or gallops GI: Other: soft nontender nondistended with normoactive bowel sounds. No rebound or guarding Neuro: Other: cranial nerves 2-12 grossly intact as tested. Motor is 5/5 all extremities. Sensation intact. Cognition appropriate Extrem: Other: no edema bilaterally Objective Data Active Medications Acetaminophen (Acetaminophen 325 Mg Tablet) 650 mg PO Q6H PRN PRN Reason: Pain, Mild (Pain Scale 1-3) Anastrozole (Anastrozole 1 Mg Tablet) 1 mg PO DAILY [facility] Last Admin: 10/22/21 09:46 Dose: 1 mg Documented by: COOPER Benzonatate (Benzonatate 100 Mg Capsule) 100 mg PO TID PRN PRN Reason: Cough Dexamethasone Sodium Phosphate (Dexamethasone Sod Phosphate 4 Mg/Ml Vial) 6 mg IVPUSH DAILY [facility] Last Admin: 10/22/21 09:46 Dose: 6 mg Documented by: COOPER Enoxaparin Sodium (Enoxaparin Sodium 40 Mg/0.4 Ml Syringe) 40 mg SUBCUT Q24H [facility] Last Admin: 10/21/21 20:43 Dose: 40 mg Documented by: MARTY Dextrose/Sodium Chloride (D51/2ns) 1,000 mls @ 100 mls/hr IVCONT .Q10H [facility] Last Infusion: 10/22/21 09:43 Dose: 0 mls/hr Documented by: COOPER Levofloxacin (Levaquin) 500 mg in 100 mls @ 100 mls/hr IV Q24H [facility] Ketorolac Tromethamine (Ketorolac Tromethamine 30 Mg/Ml Vial) 15 mg IVPUSH Q6H PRN PRN Reason: Breakthrough Pain Last Admin: 10/22/21 10:00 Dose: 15 mg Documented by: COOPER Loratadine (Loratadine 10 Mg Tablet) 10 mg PO DAILY PRN PRN Reason: Allergy Symptoms Morphine Sulfate (Morphine Sulfate 2 Mg/Ml Cartridge) 2 mg IVPUSH Q2H PRN; Protocol PRN Reason: Pain, Moderate (Pain Scale 4-6 Pharmacy Consult (Consult Rx Perform Med Rec) 1 each MISCELLANE ONCE PRN PRN Reason: Consult order Sodium Chloride (0.9 % Sodium Chloride Flush 3 Ml Syringe) 3 ml IVFLUSH QSHIFT [facility] Last Admin: 10/22/21 09:47 Dose: 3 ml Documented by: COOPER Vitamin D (Cholecalciferol (Vitamin D3) 25 Mcg Tablet) 25 mcg PO DAILY [facility] Last Admin: 10/22/21 09:46 Dose: 25 mcg Documented by: COOPER Labs CBC & Chem 7: 10/22/21 07:28 10/22/21 07:28 Labs: Laboratory Results - last 24 hr 10/21/21 10/21/21 10/21/21 15:47 15:48 15:48 MCV 88.5 MCH 29.5 MCHC 33.3 RDW 11.9 Plt Count 197 MPV 9.5 Immature Gran % (Auto) 0.3 Neut % (Auto) 78.5 H Lymph % (Auto) 15.1 L [place] % (Auto) 5.9 Eos % (Auto) 0.0 Baso % (Auto) 0.2 Lymph # (Auto) 0.9 L [place] # (Auto) 0.4 Eos # (Auto) 0.0 Baso # (Auto) 0.0 Abs Immat Gran (auto) 0.02 Absolute Neuts (auto) 4.7 Absolute Nucleated RBC 0.000 Nucleated RBC % (auto) 0.0 Smear Tech's Comments VERIFIED PT 14.7 H INR 1.3 H D-Dimer High Sensitivty 357 VBG pH VBG pCO2 VBG pO2 VBG HCO3 VBG O2 Saturation VBG Base Excess Anion Gap 15 Estim Creat Clear Calc 77.4 Estimated GFR > 60 Random Glucose 90 Fasting Glucose Lactic Acid Calcium 8.6 D Ferritin 19041 H Total Bilirubin 0.5 Direct Bilirubin 0.3 AST 73 H ALT 50 H Alkaline Phosphatase 66 D Lactate Dehydrogenase 686 H Troponin I High Sens Total Protein 6.8 Albumin 3.6 D Lipase 36 Procalcitonin COVID-19 ([facility]) COVID-19 Clin Com 10/21/21 10/21/21 10/21/21 15:48 15:48 15:49 MCV MCH MCHC RDW Plt Count MPV Immature Gran % (Auto) Neut % (Auto) Lymph % (Auto) [place] % (Auto) Eos % (Auto) Baso % (Auto) Lymph # (Auto) [place] # (Auto) Eos # (Auto) Baso # (Auto) Abs Immat Gran (auto) Absolute Neuts (auto) Absolute Nucleated RBC Nucleated RBC % (auto) Smear Tech's Comments PT INR D-Dimer High Sensitivty VBG pH VBG pCO2 VBG pO2 VBG HCO3 VBG O2 Saturation VBG Base Excess Anion Gap Estim Creat Clear Calc Estimated GFR Random Glucose Fasting Glucose Lactic Acid Calcium Ferritin Total Bilirubin Direct Bilirubin AST ALT Alkaline Phosphatase Lactate Dehydrogenase Troponin I High Sens 20.2 H Total Protein Albumin Lipase Procalcitonin 0.14 COVID-19 ([facility]) Positive A COVID-19 Clin Com See Note 10/21/21 10/21/21 10/22/21 15:50 16:57 07:28 MCV 89.5 MCH 29.4 MCHC 32.8 RDW 12.0 Plt Count 232 MPV 9.4 Immature Gran % (Auto) 0.8 H Neut % (Auto) 80.4 H Lymph % (Auto) 15.0 L [place] % (Auto) 3.8 Eos % (Auto) 0.0 Baso % (Auto) 0.0 Lymph # (Auto) 0.6 L [place] # (Auto) 0.2 Eos # (Auto) 0.0 Baso # (Auto) 0.0 Abs Immat Gran (auto) 0.03 Absolute Neuts (auto) 3.2 Absolute Nucleated RBC 0.000 Nucleated RBC % (auto) 0.0 Smear Tech's Comments VERIFIED PT INR D-Dimer High Sensitivty VBG pH 7.45 H VBG pCO2 31 VBG pO2 140 VBG HCO3 22 VBG O2 Saturation 99.0 VBG Base Excess -0.7 Anion Gap Estim Creat Clear Calc Estimated GFR Random Glucose Fasting Glucose Lactic Acid 0.8 Calcium Ferritin Total Bilirubin Direct Bilirubin AST ALT Alkaline Phosphatase Lactate Dehydrogenase Troponin I High Sens Total Protein Albumin Lipase Procalcitonin COVID-19 ([facility]) COVID-19 Clin Com 10/22/21 07:28 MCV MCH MCHC RDW Plt Count MPV Immature Gran % (Auto) Neut % (Auto) Lymph % (Auto) [place] % (Auto) Eos % (Auto) Baso % (Auto) Lymph # (Auto) [place] # (Auto) Eos # (Auto) Baso # (Auto) Abs Immat Gran (auto) Absolute Neuts (auto) Absolute Nucleated RBC Nucleated RBC % (auto) Smear Tech's Comments PT INR D-Dimer High Sensitivty VBG pH VBG pCO2 VBG pO2 VBG HCO3 VBG O2 Saturation VBG Base Excess Anion Gap 16 Estim Creat Clear Calc 75.4 Estimated GFR > 60 Random Glucose Fasting Glucose 107 H Lactic Acid Calcium 9.0 Ferritin Total Bilirubin 0.6 Direct Bilirubin AST 65 H ALT 51 H Alkaline Phosphatase 68 Lactate Dehydrogenase Troponin I High Sens Total Protein 7.2 Albumin 3.7 Lipase Procalcitonin COVID-19 ([facility]) COVID-19 Clin Com Assessment and Plan (1) Pneumonia due to 2019-nCoV: Status: Acute Assessment and Plan: 50-year-old unvaccinated female presents with 4 days of worsening productive cough and shortness of breath. Initial evaluation consistent with COVID-19 pneumonia 1. COVID-19 pneumonia supplemental O2 to keep sats greater than or equal to 90% IV Decadron 6 mg daily Discussed with ID; given abnormal LFTs not prescribe redesmivir 2. transaminitis likely related COVID-19 trending downward full code Lovenox Quality Stroke Does the patient have a stroke diagnosis?: No VTE Prior VTE?: No VTE Risk Level:: Medical - moderate - high VTE Device Contraindication: Treatment Not Indicated VTE Drug Contraindication: N/A - Med Ordered
[2021-10-22] MEDS: Albuterol Sulfate 90 MCG 8 GM INHALER 2 PUFF INHALE (14:25)
[2021-10-22] MEDS: ondansetron HCL 4 MG/2 ML VIAL IVPUSH ×2 (14:25→22:12)
[2021-10-22] MEDS: Acetaminophen 325 MG TABLET 650 MG PO (14:33)
--- NOTE | 2021-10-22 14:33 | MHC.CM.PN ---
CM CONTACTED PT VIA CELL PHONE NUMBER LISTED [phone]. PT REPORTS SHE LIVES ALONE AND IS INDEPENDENT WITH CARE AT [facility] PT DENIES USE OF DME OR HOME/COMMUNITY SERVICES PT REPORTS HER PCP IS NOW JAVED AARON BUT SHE HAS NOT SEEN HIM YET SHE REPORTS SHE HAS A HCP NAMING HER SON THE AGENT-COPY REQUESTED CURRENT DC PLAN IS HOME VS HOME WITH [facility] PT TO SELF ARRANGE TRANSPORT
[2021-10-22] MEDS: Benzonatate 100 MG CAPSULE PO (16:01)
[2021-10-22] MEDS: Zinc Sulfate 220 MG CAPSULE PO (16:42)
[2021-10-22] MEDS: Enoxaparin Sodium 40 MG/0.4 ML SYRINGE SUBCUT (19:29)
[2021-10-22] MEDS: levoFLOXacin/D5W 500 MG/100 ML PIGGYBACK 100 MG IV (19:30)
[2021-10-22] MEDS: Albuterol/Iprat 2.5/0.5MG 3 ML AMPUL.NEB INHALE (19:43)
[2021-10-22] MEDS: Melatonin 3 MG TABLET 6 MG PO (22:38)
[2021-10-23] VITALS (7 sets, daily range): BP systolic 120–162; BP diastolic 87–108; PULSE 70–92; RESP 16–20; TEMP 36.6–37; O2SAT 90–95
[2021-10-23] MEDS: Albuterol/Iprat 2.5/0.5MG 3 ML AMPUL.NEB INHALE ×2 (00:39→10:38)
[2021-10-23] MEDS: Dextrose 5 % and 0.45 % NaCl 1,000 ML 100 ML IVCONT (05:37)
[2021-10-23 06:40] LABS: Basophils Percent Auto 0.1 % (0-2); Hematocrit 33.9 % (37.0-47.0); Hemoglobin 11.5 g/dl (12.0-16.0); Imm Gran Abs Auto 0.07 X10*3/uL (0.00-0.03); Imm Gran Pct Auto 0.8 % (0.0-0.4); Lymphocytes Absolute Auto 0.9 X10*3/uL (1.2-4.9); Lymphocytes Percent Auto 10.2 % (20-40); MANUAL DIFF FLAG SCAN; Mean Corpuscular HGB Conc 33.9 g/dl (31.0-35.0); Mean Corpuscular Hemoglobin 29.9 pg (27.0-33.0); Mean Corpuscular Volume 88.1 fL (80.0-98.0); Mean Platelet Volume 9.5 fL (9.4-12.3); Monocytes Absolute Auto 0.7 X10*3/uL (0.1-1.2); Monocytes Percent Auto 7.8 % (2-11); Neutrophils Absolute Auto 7.3 x10*3/uL (2.0-8.3); Neutrophils Percent Auto 81.1 % (45-73); Platelet Count 278 X10*3/uL (160-400); Red Blood Count 3.85 X10*6/uL (4.20-5.50); Red Cell Distribution Width 11.9 % (11.0-16.0); SCAN SMEAR FLAG 1
[2021-10-23 07:00] LABS: Alanine Aminotransferase 41 U/L (0-31); Albumin Level 3.3 g/dL (3.5-5.0); Alkaline Phosphatase 57 U/L (39-117); Anion Gap 12 (12-20); Aspartate Amino Transferase 40 U/L (5-31); Bilirubin Total 0.5 mg/dL (0.0-1.0); Blood Urea Nitrogen 18 mg/dL (9-16); Calcium 8.7 mg/dL (8.4-10.2); Carbon Dioxide 24 mmol/L (22-29); Chloride 110 mmol/L (96-108); Creatinine Clr Calc Pharmacy 72.8; Estimated Glomerular Filt Rate > 60; Glucose Fasting 128 mg/dL (60-99); Potassium 3.6 mmol/L (3.3-5.1); Sodium 142 mmol/L (135-145); Total Protein 6.3 g/dL (6.5-8.0)
[2021-10-23 07:05] LABS: SLIDE REVIEW VERIFIED
[2021-10-23 07:43] LABS: C Reactive Protein 5.46 mg/dL (< or = 0.50)
[2021-10-23 08:04] LABS: Troponin-I High Sensitivity 8.5 ng/L (<3.5-17.0)
[2021-10-23] MEDS: dexAMETHasone sod phosphate 4 MG/ML VIAL 6 MG IVPUSH (08:21)
[2021-10-23] MEDS: 0.9 % Sodium Chloride Flush 3 ML SYRINGE IVFLUSH ×3 (08:21→20:14)
[2021-10-23] MEDS: Zinc Sulfate 220 MG CAPSULE PO (08:21)
[2021-10-23] MEDS: Cholecalciferol (Vitamin D3) 25 MCG TABLET PO (08:22)
[2021-10-23] MEDS: Anastrozole 1 MG TABLET PO (08:22)
--- NOTE | 2021-10-23 11:06 | HO.PM.IMPN ---
Subjective Subjective Date of Service: 10/23/21 Interval History: On 4L O2 via [place]. Still coughing and dyspneic. No chest pain. Review of Systems Review of Systems: Yes all other systems are reviewed and are negative Physical Exam Vital Signs: Vital Signs: Last Vital Signs Temp 98.0 F 10/23/21 08:00 Pulse 79 10/23/21 10:38 Resp 20 10/23/21 10:38 BP 162/108 H 10/23/21 08:00 Pulse Ox 93 10/23/21 08:00 BMI result Body Mass Index 25.0 Gen: in no acute distress HEENT: sclera anicteric, moist mucus membranes Neck: supple Lungs: clear to auscultation bilaterally Heart: regular rate and rhythm, no murmurs Abd: soft, non-tender, non-distended Ext: no edema Skin: warm/well-perfused Neuro: alert and oriented x3, no focal findings Psych: appropriate affect Objective Data Active Medications Acetaminophen (Acetaminophen 325 Mg Tablet) 650 mg PO Q6H PRN PRN Reason: Pain, Mild (Pain Scale 1-3) Last Admin: 10/22/21 14:33 Dose: 650 mg Documented by: COOPER Albuterol Sulfate (Albuterol Sulfate 90 Mcg 8 Gm Inhaler) 2 puff INHALE RQ6H PRN PRN Reason: Shortness of Breath Last Admin: 10/22/21 14:25 Dose: 2 puff Documented by: BRONSON Albuterol/Ipratropium (Albuterol/Iprat 2.5/0.5mg 3 Ml Ampul.Neb) 3 ml INHALE RQ4H PRN PRN Reason: Shortness of Breath Last Admin: 10/23/21 10:38 Dose: 3 ml Documented by: BRONSON Anastrozole (Anastrozole 1 Mg Tablet) 1 mg PO DAILY [facility] Last Admin: 10/23/21 08:22 Dose: 1 mg Documented by: MABEL Benzonatate (Benzonatate 100 Mg Capsule) 100 mg PO TID PRN PRN Reason: Cough Last Admin: 10/22/21 16:01 Dose: 100 mg Documented by: CONCEPCION Dexamethasone Sodium Phosphate (Dexamethasone Sod Phosphate 4 Mg/Ml Vial) 6 mg IVPUSH DAILY [facility] Last Admin: 10/23/21 08:21 Dose: 6 mg Documented by: MABEL Enoxaparin Sodium (Enoxaparin Sodium 40 Mg/0.4 Ml Syringe) 40 mg SUBCUT Q24H [facility] Last Admin: 10/22/21 19:29 Dose: 40 mg Documented by: CONCEPCION Loratadine (Loratadine 10 Mg Tablet) 10 mg PO DAILY PRN PRN Reason: Allergy Symptoms Melatonin (Melatonin 3 Mg Tablet) 6 mg PO BEDTIME PRN PRN Reason: Insomnia Last Admin: 10/22/21 22:38 Dose: 6 mg Documented by: YAZMIN Morphine Sulfate (Morphine Sulfate 2 Mg/Ml Cartridge) 2 mg IVPUSH Q2H PRN; Protocol PRN Reason: Pain, Moderate (Pain Scale 4-6 Ondansetron HCl (Ondansetron Hcl 4 Mg/2 Ml Vial) 4 mg IVPUSH Q8H PRN PRN Reason: Nausea and Vomiting Last Admin: 10/22/21 22:12 Dose: 4 mg Documented by: YAZMIN Pharmacy Consult (Consult Rx Perform Med Rec) 1 each MISCELLANE ONCE PRN PRN Reason: Consult order Sodium Chloride (0.9 % Sodium Chloride Flush 3 Ml Syringe) 3 ml IVFLUSH QSHIFT [facility] Last Admin: 10/23/21 08:21 Dose: 3 ml Documented by: MABEL Vitamin D (Cholecalciferol (Vitamin D3) 25 Mcg Tablet) 25 mcg PO DAILY [facility] Last Admin: 10/23/21 08:22 Dose: 25 mcg Documented by: MABEL Zinc Sulfate (Zinc Sulfate 220 Mg Capsule) 220 mg PO DAILY [facility] Last Admin: 10/23/21 08:21 Dose: 220 mg Documented by: MABEL Labs CBC & Chem 7: 10/23/21 06:15 10/23/21 06:15 Labs: Laboratory Results - last 24 hr 10/23/21 10/23/21 10/23/21 06:15 06:15 06:15 MCV 88.1 MCH 29.9 MCHC 33.9 RDW 11.9 Plt Count 278 MPV 9.5 Immature Gran % (Auto) 0.8 H Neut % (Auto) 81.1 H Lymph % (Auto) 10.2 L [place] % (Auto) 7.8 Eos % (Auto) 0.0 Baso % (Auto) 0.1 Lymph # (Auto) 0.9 L [place] # (Auto) 0.7 Eos # (Auto) 0.0 Baso # (Auto) 0.0 Abs Immat Gran (auto) 0.07 H Absolute Neuts (auto) 7.3 Absolute Nucleated RBC 0.000 Nucleated RBC % (auto) 0.0 Smear Tech's Comments VERIFIED Anion Gap 12 Estim Creat Clear Calc 72.8 Estimated GFR > 60 Fasting Glucose 128 H Calcium 8.7 Total Bilirubin 0.5 AST 40 H ALT 41 H Alkaline Phosphatase 57 Troponin I High Sens 8.5 D C-Reactive Protein 5.46 H Total Protein 6.3 L Albumin 3.3 L Microbiology Microbiology Results: Microbiology 10/21/21 15:47 Blood Culture - Preliminary Blood - Venous No growth after 24 hours. 10/21/21 15:47 Blood Culture - Preliminary Blood - Venous No growth after 24 hours. Assessment and Plan (1) Pneumonia due to 2019-nCoV: Status: Acute Assessment and Plan: hospital d#3 50yo unvaccinated F presenting after 4d of cough + dyspnea, admitted for hypoxia due to Covid-19 PNA # acute hypoxic resp failure - supplemental O2, wean as tolerated, encourage awake proning # Covid-19 pneumonia - IV dexamethasone d#12/22. ID consult- remdesivir? # hx of breast CA - continue anastrozole # VTE ppx - LMWH Quality Stroke Does the patient have a stroke diagnosis?: No VTE Prior VTE?: No VTE Risk Level:: Medical - moderate - high VTE Device Contraindication: Treatment Not Indicated VTE Drug Contraindication: N/A - Med Ordered
[2021-10-23] MEDS: ondansetron HCL 4 MG/2 ML VIAL IVPUSH (12:45)
[2021-10-23] MEDS: Lidocaine 4 % Patch ADH..PATCH 1 PATCH TRANSDERMA (15:39)
[2021-10-23] MEDS: Enoxaparin Sodium 40 MG/0.4 ML SYRINGE SUBCUT (20:09)
[2021-10-23] MEDS: Cyclobenzaprine HCl 5 MG TABLET PO (20:20)
[2021-10-24] VITALS (10 sets, daily range): BP systolic 126–143; BP diastolic 81–91; PULSE 74–106; RESP 18–24; TEMP 35.6–37.3; O2SAT 91–100
[2021-10-24] MEDS: Albuterol/Iprat 2.5/0.5MG 3 ML AMPUL.NEB INHALE ×2 (00:40→17:59)
[2021-10-24 06:41] LABS: MANUAL DIFF FLAG NO
[2021-10-24 06:46] LABS: Hematocrit 32.2 % (37.0-47.0); Hemoglobin 10.8 g/dl (12.0-16.0); Imm Gran Abs Auto 0.09 X10*3/uL (0.00-0.03); Imm Gran Pct Auto 0.9 % (0.0-0.4); Lymphocytes Absolute Auto 1.6 X10*3/uL (1.2-4.9); Lymphocytes Percent Auto 15.2 % (20-40); Mean Corpuscular HGB Conc 33.5 g/dl (31.0-35.0); Mean Corpuscular Hemoglobin 29.5 pg (27.0-33.0); Mean Platelet Volume 9.6 fL (9.4-12.3); Monocytes Absolute Auto 0.7 X10*3/uL (0.1-1.2); Monocytes Percent Auto 6.6 % (2-11); Neutrophils Percent Auto 77.3 % (45-73); Platelet Count 288 X10*3/uL (160-400); Red Blood Count 3.66 X10*6/uL (4.20-5.50); Red Cell Distribution Width 11.9 % (11.0-16.0); White Blood Count 10.3 X10*3/uL (4.8-10.8)
[2021-10-24 06:54] LABS: D Dimer High Sensitivity 311 NG/ML
[2021-10-24 07:16] LABS: Alanine Aminotransferase 33 U/L (0-31); Albumin Level 3.3 g/dL (3.5-5.0); Alkaline Phosphatase 58 U/L (39-117); Anion Gap 11 (12-20); Aspartate Amino Transferase 29 U/L (5-31); Bilirubin Total 0.6 mg/dL (0.0-1.0); Blood Urea Nitrogen 18 mg/dL (9-16); Calcium 8.6 mg/dL (8.4-10.2); Carbon Dioxide 25 mmol/L (22-29); Chloride 111 mmol/L (96-108); Creatinine Clr Calc Pharmacy 79.6; Estimated Glomerular Filt Rate > 60; Glucose Fasting 91 mg/dL (60-99); Potassium 3.4 mmol/L (3.3-5.1); Sodium 144 mmol/L (135-145); Total Protein 6.1 g/dL (6.5-8.0)
[2021-10-24] MEDS: Zinc Sulfate 220 MG CAPSULE PO (08:47)
[2021-10-24] MEDS: Anastrozole 1 MG TABLET PO (08:47)
[2021-10-24] MEDS: 0.9 % Sodium Chloride Flush 3 ML SYRINGE IVFLUSH ×3 (08:47→20:37)
[2021-10-24] MEDS: Cholecalciferol (Vitamin D3) 25 MCG TABLET PO (08:47)
[2021-10-24] MEDS: dexAMETHasone sod phosphate 4 MG/ML VIAL 6 MG IVPUSH (08:47)
[2021-10-24] MEDS: Lidocaine 4 % Patch ADH..PATCH 1 PATCH TRANSDERMA (08:48)
--- NOTE | 2021-10-24 09:02 | PC.NURSE ---
Addendum entered by Rocio Reynoso RN 10/24/21 15:27: TITRATED DOWN TO 4L [place] -TOLERATING WELL. Addendum entered by Rocio Reynoso RN 10/24/21 10:26: CONTINUOUS 02 MONITOR APPLIED PER MD TO MONITOR AND TITRATE 02. AT START OF SHIFT 10L [place], CURRENTLY 6L [place] = 98%. WILL CONTINUE TO MONITOR. Original Note: PATIENT SCREAMING AND CRYING TO TAKE IT OFF - WAS ON THE BEDPAN. VERY EMOTIONAL, INCREASED WOB. PATIENT NOTED TO BE ON 10L [place] - CHECKED 02 TO BE 93%. WITH A LOT OF ENCOURAGEMENT PATIENT TOOK MORNING MEDICATION. LIDOCAINE PATCH PLACED TO MIDBACK. WILL CONTINUE TO MONITOR.
[2021-10-24] MEDS: Ferric Carboxymaltose 750 MG in 0.9 % Sodium Chloride 250 ML 1060 MG IV (11:32)
--- NOTE | 2021-10-24 13:52 | HO.PM.IMPN ---
Subjective Subjective Date of Service: 10/24/21 Interval History: Short of breath and on 10L O2 now [was on 4L yesterday] Constipated Review of Systems Review of Systems: Yes all other systems are reviewed and are negative Physical Exam Vital Signs: Vital Signs: Last Vital Signs Temp 96.1 F L 10/24/21 11:52 Pulse 106 H 10/24/21 11:52 Resp 24 H 10/24/21 11:52 BP 126/88 10/24/21 11:52 Pulse Ox 98 10/24/21 10:25 BMI result Body Mass Index 25.0 Gen: in moderate respiratory distress HEENT: sclera anicteric, moist mucus membranes Neck: supple Lungs: tachypneic, clear to auscultation bilaterally Heart: regular, tachycardic, no murmurs Abd: soft, non-tender, non-distended Ext: no edema Skin: warm/well-perfused Neuro: alert and oriented x3, no focal findings Psych: appropriate affect Objective Data Active Medications Acetaminophen (Acetaminophen 325 Mg Tablet) 650 mg PO Q6H PRN PRN Reason: Pain, Mild (Pain Scale 1-3) Last Admin: 10/22/21 14:33 Dose: 650 mg Documented by: COOPER Albuterol Sulfate (Albuterol Sulfate 90 Mcg 8 Gm Inhaler) 2 puff INHALE RQ6H PRN PRN Reason: Shortness of Breath Last Admin: 10/22/21 14:25 Dose: 2 puff Documented by: BRONSON Albuterol/Ipratropium (Albuterol/Iprat 2.5/0.5mg 3 Ml Ampul.Neb) 3 ml INHALE RQ4H PRN PRN Reason: Shortness of Breath Last Admin: 10/24/21 00:40 Dose: 3 ml Documented by: MARCIAL Anastrozole (Anastrozole 1 Mg Tablet) 1 mg PO DAILY [facility] Last Admin: 10/24/21 08:47 Dose: 1 mg Documented by: LAURO Benzonatate (Benzonatate 100 Mg Capsule) 100 mg PO TID PRN PRN Reason: Cough Last Admin: 10/22/21 16:01 Dose: 100 mg Documented by: CONCEPCION Cyclobenzaprine HCl (Cyclobenzaprine Hcl 5 Mg Tablet) 5 mg PO TID PRN PRN Reason: back muscle spasm Last Admin: 10/23/21 20:20 Dose: 5 mg Documented by: APRIL Dexamethasone Sodium Phosphate (Dexamethasone Sod Phosphate 4 Mg/Ml Vial) 6 mg IVPUSH DAILY [facility] Last Admin: 10/24/21 08:47 Dose: 6 mg Documented by: LAURO Enoxaparin Sodium (Enoxaparin Sodium 40 Mg/0.4 Ml Syringe) 40 mg SUBCUT Q24H [facility] Last Admin: 10/23/21 20:09 Dose: 40 mg Documented by: APRIL Lidocaine (Lidocaine 4 % Patch Adh..Patch) 1 patch TRANSDERMA DAILY [facility]; Protocol Last Admin: 10/24/21 08:48 Dose: 1 patch Documented by: LAURO Loratadine (Loratadine 10 Mg Tablet) 10 mg PO DAILY PRN PRN Reason: Allergy Symptoms Melatonin (Melatonin 3 Mg Tablet) 6 mg PO BEDTIME PRN PRN Reason: Insomnia Last Admin: 10/22/21 22:38 Dose: 6 mg Documented by: YAZMIN Morphine Sulfate (Morphine Sulfate 2 Mg/Ml Cartridge) 2 mg IVPUSH Q2H PRN; Protocol PRN Reason: Pain, Moderate (Pain Scale 4-6 Ondansetron HCl (Ondansetron Hcl 4 Mg/2 Ml Vial) 4 mg IVPUSH Q8H PRN PRN Reason: Nausea and Vomiting Last Admin: 10/23/21 12:45 Dose: 4 mg Documented by: MABEL Pharmacy Consult (Consult Rx Perform Med Rec) 1 each MISCELLANE ONCE PRN PRN Reason: Consult order Senna/Docusate Sodium (Sennosides/Docusate Sodium Tablet) 2 tab PO BID [facility] Sodium Chloride (0.9 % Sodium Chloride Flush 3 Ml Syringe) 3 ml IVFLUSH QSHIFT [facility] Last Admin: 10/24/21 08:47 Dose: 3 ml Documented by: LAURO Vitamin D (Cholecalciferol (Vitamin D3) 25 Mcg Tablet) 25 mcg PO DAILY [facility] Last Admin: 10/24/21 08:47 Dose: 25 mcg Documented by: LAURO Zinc Sulfate (Zinc Sulfate 220 Mg Capsule) 220 mg PO DAILY [facility] Last Admin: 10/24/21 08:47 Dose: 220 mg Documented by: LAURO Labs CBC & Chem 7: 10/24/21 06:19 10/24/21 06:19 Labs: Laboratory Results - last 24 hr 10/24/21 10/24/21 10/24/21 06:19 06:19 06:19 MCV 88.0 MCH 29.5 MCHC 33.5 RDW 11.9 Plt Count 288 MPV 9.6 Immature Gran % (Auto) 0.9 H Neut % (Auto) 77.3 H Lymph % (Auto) 15.2 L [place] % (Auto) 6.6 Eos % (Auto) 0.0 Baso % (Auto) 0.0 Lymph # (Auto) 1.6 [place] # (Auto) 0.7 Eos # (Auto) 0.0 Baso # (Auto) 0.0 Abs Immat Gran (auto) 0.09 H Absolute Neuts (auto) 8.0 Absolute Nucleated RBC 0.000 Nucleated RBC % (auto) 0.0 D-Dimer High Sensitivty 311 Anion Gap 11 L Estim Creat Clear Calc 79.6 Estimated GFR > 60 Random Glucose TNP Fasting Glucose 91 Calcium 8.6 Total Bilirubin 0.6 AST 29 ALT 33 H Alkaline Phosphatase 58 Total Protein 6.1 L Albumin 3.3 L Microbiology Microbiology Results: Microbiology 10/21/21 15:47 Blood Culture - Preliminary Blood - Venous No growth after 48 hours. 10/21/21 15:47 Blood Culture - Preliminary Blood - Venous No growth after 48 hours. Assessment and Plan (1) Pneumonia due to 2019-nCoV: Status: Acute Assessment and Plan: hospital d#4 50yo unvaccinated F presenting after 4d of cough + dyspnea, admitted for hypoxia due to Covid-19 PNA # acute hypoxic resp failure - supplemental O2, wean as tolerated, encourage awake proning - if O2 requirements increase, place on HFNC # Covid-19 pneumonia - IV dexamethasone d#01/22. remdesivir not started due to transaminasemia. if worsening O2 requirements, to consider baricitinib # hx of breast CA - continue anastrozole # anemia - ferric carboxymaltose IV per Heme/Onc # VTE ppx - LMWH Quality Stroke Does the patient have a stroke diagnosis?: No VTE Prior VTE?: No VTE Risk Level:: Medical - moderate - high VTE Device Contraindication: Treatment Not Indicated VTE Drug Contraindication: N/A - Med Ordered
[2021-10-24] MEDS: Sennosides/Docusate Sodium TABLET 2 TAB PO (15:07)
[2021-10-24] MEDS: ondansetron HCL 4 MG/2 ML VIAL IVPUSH (17:11)
[2021-10-24] MEDS: Cyclobenzaprine HCl 5 MG TABLET PO (17:14)
[2021-10-24] MEDS: Acetaminophen 325 MG TABLET 650 MG PO (17:15)
[2021-10-24] MEDS: Enoxaparin Sodium 40 MG/0.4 ML SYRINGE SUBCUT (20:35)
[2021-10-25] VITALS (11 sets, daily range): BP systolic 120–135; BP diastolic 72–86; PULSE 69–122; RESP 18–28; TEMP 36.5–37.3; O2SAT 88–95
[2021-10-25] MEDS: Albuterol/Iprat 2.5/0.5MG 3 ML AMPUL.NEB INHALE ×4 (00:48→19:59)
[2021-10-25 06:13] LABS: D Dimer High Sensitivity 442 NG/ML
[2021-10-25 06:18] LABS: C Reactive Protein 6.39 mg/dL (< or = 0.50)
[2021-10-25] MEDS: Cholecalciferol (Vitamin D3) 25 MCG TABLET PO (08:03)
[2021-10-25] MEDS: Anastrozole 1 MG TABLET PO (08:03)
[2021-10-25] MEDS: Zinc Sulfate 220 MG CAPSULE PO (08:03)
[2021-10-25] MEDS: Lidocaine 4 % Patch ADH..PATCH 1 PATCH TRANSDERMA (08:04)
[2021-10-25] MEDS: dexAMETHasone sod phosphate 4 MG/ML VIAL 6 MG IVPUSH (08:04)
[2021-10-25] MEDS: 0.9 % Sodium Chloride Flush 3 ML SYRINGE IVFLUSH ×2 (08:05→15:43)
--- NOTE | 2021-10-25 14:40 | HO.PM.IMPN ---
Subjective Subjective Date of Service: 10/25/21 Interval History: Feels short of breath- improved with proning O2 requirement up to 12L No chest pain Review of Systems Review of Systems: Yes all other systems are reviewed and are negative Physical Exam Vital Signs: Vital Signs: Last Vital Signs Temp 98.8 F 10/25/21 11:43 Pulse 109 H 10/25/21 11:43 Resp 18 10/25/21 11:43 BP 126/86 10/25/21 11:43 Pulse Ox 93 10/25/21 11:43 BMI result Body Mass Index 25.0 Gen: in mild respiratory distress HEENT: sclera anicteric, moist mucus membranes Neck: supple Lungs: tachypneic, clear to auscultation bilaterally Heart: regular, tachycardic, no murmurs Abd: soft, non-tender, non-distended Ext: no edema Skin: warm/well-perfused Neuro: alert and oriented x3, no focal findings Psych: appropriate affect Objective Data Active Medications Acetaminophen (Acetaminophen 325 Mg Tablet) 650 mg PO Q6H PRN PRN Reason: Pain, Mild (Pain Scale 1-3) Last Admin: 10/24/21 17:15 Dose: 650 mg Documented by: RADHA Albuterol Sulfate (Albuterol Sulfate 90 Mcg 8 Gm Inhaler) 2 puff INHALE RQ6H PRN PRN Reason: Shortness of Breath Last Admin: 10/22/21 14:25 Dose: 2 puff Documented by: BRONSON Albuterol/Ipratropium (Albuterol/Iprat 2.5/0.5mg 3 Ml Ampul.Neb) 3 ml INHALE RQ4H PRN PRN Reason: Shortness of Breath Last Admin: 10/25/21 05:42 Dose: 3 ml Documented by: MARCIAL Anastrozole (Anastrozole 1 Mg Tablet) 1 mg PO DAILY [facility] Last Admin: 10/25/21 08:03 Dose: 1 mg Documented by: MANOJ Benzonatate (Benzonatate 100 Mg Capsule) 100 mg PO TID PRN PRN Reason: Cough Last Admin: 10/22/21 16:01 Dose: 100 mg Documented by: CONCEPCION Cyclobenzaprine HCl (Cyclobenzaprine Hcl 5 Mg Tablet) 5 mg PO TID PRN PRN Reason: back muscle spasm Last Admin: 10/24/21 17:14 Dose: 5 mg Documented by: RAHDA Dexamethasone Sodium Phosphate (Dexamethasone Sod Phosphate 4 Mg/Ml Vial) 6 mg IVPUSH DAILY [facility] Last Admin: 10/25/21 08:04 Dose: 6 mg Documented by: MANOJ Enoxaparin Sodium (Enoxaparin Sodium 40 Mg/0.4 Ml Syringe) 40 mg SUBCUT Q24H [facility] Last Admin: 10/24/21 20:35 Dose: 40 mg Documented by: APRIL Lidocaine (Lidocaine 4 % Patch Adh..Patch) 1 patch TRANSDERMA DAILY [facility]; Protocol Last Admin: 10/25/21 08:04 Dose: 1 patch Documented by: MANOJ Loratadine (Loratadine 10 Mg Tablet) 10 mg PO DAILY PRN PRN Reason: Allergy Symptoms Melatonin (Melatonin 3 Mg Tablet) 6 mg PO BEDTIME PRN PRN Reason: Insomnia Last Admin: 10/22/21 22:38 Dose: 6 mg Documented by: YAZMIN Morphine Sulfate (Morphine Sulfate 2 Mg/Ml Cartridge) 2 mg IVPUSH Q2H [facility]; Protocol PRN Reason: Pain, Moderate (Pain Scale 4-6 Ondansetron HCl (Ondansetron Hcl 4 Mg/2 Ml Vial) 4 mg IVPUSH Q8H PRN PRN Reason: Nausea and Vomiting Last Admin: 10/24/21 17:11 Dose: 4 mg Documented by: RADHA Pharmacy Consult (Consult Rx Perform Med Rec) 1 each MISCELLANE ONCE PRN PRN Reason: Consult order Senna/Docusate Sodium (Sennosides/Docusate Sodium Tablet) 2 tab PO BID [facility] Last Admin: 10/25/21 08:06 Dose: Not Given Documented by: MANOJ Non-Admin Reason: Patient Refused Sodium Chloride (0.9 % Sodium Chloride Flush 3 Ml Syringe) 3 ml IVFLUSH QSHIFT [facility] Last Admin: 10/25/21 08:05 Dose: 3 ml Documented by: MANOJ Vitamin D (Cholecalciferol (Vitamin D3) 25 Mcg Tablet) 25 mcg PO DAILY [facility] Last Admin: 10/25/21 08:03 Dose: 25 mcg Documented by: MANOJ Zinc Sulfate (Zinc Sulfate 220 Mg Capsule) 220 mg PO DAILY [facility] Last Admin: 10/25/21 08:03 Dose: 220 mg Documented by: MANOJ Labs CBC & Chem 7: 10/24/21 06:19 10/24/21 06:19 Labs: Laboratory Results - last 24 hr 10/25/21 10/25/21 05:34 05:34 D-Dimer High Sensitivty 442 C-Reactive Protein 6.39 H Assessment and Plan (1) Pneumonia due to 2019-nCoV: Status: Acute Assessment and Plan: hospital d#5 50yo unvaccinated F presenting after 4d of cough + dyspnea, admitted for hypoxia due to Covid-19 PNA # acute hypoxic resp failure - supplemental O2, wean as tolerated, encourage awake proning - place on HFNC # Covid-19 pneumonia - IV dexamethasone d#02/21. remdesivir not started due to transaminasemia. will start baricitinib d#10/28 # hx of breast CA - continue anastrozole # anemia - ferric carboxymaltose IV given per Heme/Onc # VTE ppx - LMWH Quality Stroke Does the patient have a stroke diagnosis?: No VTE Prior VTE?: No VTE Risk Level:: Medical - moderate - high VTE Device Contraindication: Treatment Not Indicated VTE Drug Contraindication: N/A - Med Ordered
--- NOTE | 2021-10-25 16:11 | P.CNID_ITS ---
History of Present Illness Data of Consult Service Date: 10/25/21 Requesting physician: Radha Frausto Primary Care Provider: Gino Powell MD [facility] Reason for consult: shortness of breath She presents with shortness of breath for four days She has cough She is positive for COVID On admission she has elevated LFTs Review of Systems Verdana 4l Review of Systems: Yes all other systems are reviewed and Verdana 4d are negative PMFSH Past Medical History Medical History (Updated 11/10/21 @ 00:02 by Hu Bucio) Breast cancer History of anxiety History of COVID-19 History of pancytopenia History of seizures History of vitamin D deficiency Hx of alopecia Hx of breast cancer Hx of chronic inflammatory arthritis Hx of low back pain Hx of seasonal allergies Hx of sinusitis Hx of transfusion Iron deficiency anemia Seroma of breast Family History Family History Mother Diabetes Hypertension Asthma Father Diabetes Paternal Grandfather Colon cancer Diabetes Hypertension Paternal Grandmother Diabetes Hypertension Maternal Grandmother Diabetes Hypertension Brother Diabetes Family history: reviewed and not pertinent Surgical History Surgical History History of esophagogastroduodenoscopy (EGD) History of removal of Port-a-Cath Hx of section Hx of colonoscopy Hx of hysterectomy Hx of lumpectomy Hx of lymph node excision Social History Social History Household Members: None Housing: Apartment Do you presently have visiting nurse or other home services: No Alcohol intake: never Patient Tobacco Use Status: Never used Tobacco Use of substances other than those prescribed or required for medical reasons: No Advance Directives: No Advance Directives Information Provided: Yes Patient : No service: No Meds Allergies Allergy/AdvReac Type Severity Reaction Status Date / Time Penicillins Allergy Unknown Unknown Verified 11/07/21 16:05 oxycodone [From AdvReac Mild Confusion Verified 11/07/21 16:05 Percocet] minocycline AdvReac Unknown Unknown Verified 11/07/21 16:05 Active Medications: Current Medications Acetaminophen (Acetaminophen 325 Mg Tablet) 650 mg PO Q6H PRN PRN Reason: Pain, Mild (Pain Scale 1-3) Last Admin: 10/24/21 17:15 Dose: 650 mg Documented by: Albuterol Sulfate (Albuterol Sulfate 90 Mcg 8 Gm Inhaler) 2 puff INHALE RQ6H PRN PRN Reason: Shortness of Breath Last Admin: 10/22/21 14:25 Dose: 2 puff Documented by: Albuterol/Ipratropium (Albuterol/Iprat 2.5/0.5mg 3 Ml Ampul.Neb) 3 ml INHALE RQ4H PRN PRN Reason: Shortness of Breath Last Admin: 10/25/21 15:39 Dose: 3 ml Documented by: Anastrozole (Anastrozole 1 Mg Tablet) 1 mg PO DAILY [facility] Last Admin: 10/25/21 08:03 Dose: 1 mg Documented by: Baricitinib (Baricitinib 2 Mg Tablet) 4 mg PO DAILY [facility] Stop: 11/07/21 09:01 Last Admin: 10/25/21 15:43 Dose: 4 mg Documented by: Benzonatate (Benzonatate 100 Mg Capsule) 100 mg PO TID PRN PRN Reason: Cough Last Admin: 10/22/21 16:01 Dose: 100 mg Documented by: Cyclobenzaprine HCl (Cyclobenzaprine Hcl 5 Mg Tablet) 5 mg PO TID PRN PRN Reason: back muscle spasm Last Admin: 10/24/21 17:14 Dose: 5 mg Documented by: Dexamethasone Sodium Phosphate (Dexamethasone Sod Phosphate 4 Mg/Ml Vial) 6 mg IVPUSH DAILY [facility] Last Admin: 10/25/21 08:04 Dose: 6 mg Documented by: Enoxaparin Sodium (Enoxaparin Sodium 40 Mg/0.4 Ml Syringe) 40 mg SUBCUT Q24H [facility] Last Admin: 10/24/21 20:35 Dose: 40 mg Documented by: Lidocaine (Lidocaine 4 % Patch Adh..Patch) 1 patch TRANSDERMA DAILY [facility]; Protocol Last Admin: 10/25/21 08:04 Dose: 1 patch Documented by: Loratadine (Loratadine 10 Mg Tablet) 10 mg PO DAILY PRN PRN Reason: Allergy Symptoms Melatonin (Melatonin 3 Mg Tablet) 6 mg PO BEDTIME PRN PRN Reason: Insomnia Last Admin: 10/22/21 22:38 Dose: 6 mg Documented by: Morphine Sulfate (Morphine Sulfate 2 Mg/Ml Cartridge) 2 mg IVPUSH Q2H PRN; Protocol PRN Reason: Pain, Moderate (Pain Scale 4-6 Ondansetron HCl (Ondansetron Hcl 4 Mg/2 Ml Vial) 4 mg IVPUSH Q8H PRN PRN Reason: Nausea and Vomiting Last Admin: 10/24/21 17:11 Dose: 4 mg Documented by: Pharmacy Consult (Consult Rx Perform Med Rec) 1 each MISCELLANE ONCE PRN PRN Reason: Consult order Senna/Docusate Sodium (Sennosides/Docusate Sodium Tablet) 2 tab PO BID [facility] Last Admin: 10/25/21 08:06 Dose: Not Given Documented by: Sodium Chloride (0.9 % Sodium Chloride Flush 3 Ml Syringe) 3 ml IVFLUSH QSHIFT [facility] Last Admin: 10/25/21 15:43 Dose: 3 ml Documented by: Vitamin D (Cholecalciferol (Vitamin D3) 25 Mcg Tablet) 25 mcg PO DAILY [facility] Last Admin: 10/25/21 08:03 Dose: 25 mcg Documented by: Zinc Sulfate (Zinc Sulfate 220 Mg Capsule) 220 mg PO DAILY [facility] Last Admin: 10/25/21 08:03 Dose: 220 mg Documented by: Home Medications Medication Instructions Recorded Confirmed Last Taken Type cetirizine 10 mg 10 mg PO DAILY 12/07/20 10/21/21 Unknown History tablet (Zyrtec) PRN cholecalciferol 25 mcg PO DAILY 10/21/21 10/21/21 10/20/21 History (vitamin D3) 25 mcg (1,000 unit) tablet (Vitamin D3) elderberry fruit 200 mg PO DAILY 10/21/21 10/21/21 Unknown History 200 mg capsule Physical Exam Verdana 4l Vital Signs: Verdana 4d Verdana 4d Vital Signs: Verdana 4d Verdana 4Bd Last Vital Signs Verdana 4d [employer] Specialist New 4d Retail Sales Specialist New 4d Temp 98.2 F 10/25/21 15:53 Retail Sales Specialist New 4d Pulse 122 H 10/25/21 15:53 Retail Sales Specialist New 4d Resp 19 10/25/21 15:53 BP 120/75 10/25/21 15:53 Pulse Ox 90 L 10/25/21 15:53 BMI result Body Mass Index 25.0 Const: General: cooperative HENMT: Head: Yes normal to inspection Eyes: General: appearance normal, both eyes and all related structures Resp: Effort & Inspection: able to speak in complete sentences Cardio: Rate: regular rate Rhythm: regular rhythm GI: Palpation (GI): nontender Extrem: General: Yes normal to inspection Results Labs CBC & Chem 7: 10/27/21 06:35 10/27/21 06:35 Microbiology Microbiology Results: Microbiology 10/21/21 15:47 Blood - Venous Blood Culture - Preliminary No growth after 48 hours. 10/21/21 15:47 Blood - Venous Blood Culture - Preliminary No growth after 48 hours. Assessment and Plan (1) Pneumonia due to 2019-nCoV: Status: Acute She has COVID pneumonia She has risk factor breast cancer. She has poor immunity to virus Her LFTs are elevated ?breast cancer therapy?Hepatitis C (2) Breast cancer: Plan Oxygen as needed,now on high flow Would continue Dexamethasone No Remdesivir due to increased LFTs Would give Baricitinib due to high flow oxygen requirements
[2021-10-25] MEDS: Sennosides/Docusate Sodium TABLET 2 TAB PO (20:01)
[2021-10-25] MEDS: Enoxaparin Sodium 40 MG/0.4 ML SYRINGE SUBCUT (21:03)
[2021-10-25] MEDS: ondansetron HCL 4 MG/2 ML VIAL IVPUSH (21:09)
[2021-10-26] VITALS (14 sets, daily range): BP systolic 112–158; BP diastolic 66–97; PULSE 80–113; RESP 16–22; TEMP 36.6–37.6; O2SAT 93–100
[2021-10-26] MEDS: 0.9 % Sodium Chloride Flush 3 ML SYRINGE IVFLUSH ×4 (00:47→21:16)
[2021-10-26] MEDS: Albuterol/Iprat 2.5/0.5MG 3 ML AMPUL.NEB INHALE ×3 (02:53→20:34)
[2021-10-26] MEDS: Lidocaine 4 % Patch ADH..PATCH 1 PATCH TRANSDERMA (09:31)
[2021-10-26] MEDS: dexAMETHasone sod phosphate 4 MG/ML VIAL 6 MG IVPUSH (09:32)
[2021-10-26] MEDS: Zinc Sulfate 220 MG CAPSULE PO (09:33)
[2021-10-26] MEDS: Cholecalciferol (Vitamin D3) 25 MCG TABLET PO (09:33)
[2021-10-26] MEDS: Anastrozole 1 MG TABLET PO (09:34)
--- NOTE | 2021-10-26 09:54 | PC.RT ---
pt placed on HFNC per Dr. Leahy request. pt was stable on 15 liter James sats were 93 % with a hr of 110 and no resp distress. pt now on 80% and 40 liters and looks the same . HR 113 and sats 93%. no changes in pt status and she looks the same as prior to HFNC.
[2021-10-26] MEDS: hydrOXYzine HCL 50 MG TABLET PO ×2 (11:01→21:16)
--- NOTE | 2021-10-26 12:05 | HO.PM.IMPN ---
Subjective Subjective Date of Service: 10/26/21 Interval History: On HFNC. Anxious. No chest pain. Constipated. No fever. Review of Systems Review of Systems: Yes all other systems are reviewed and are negative Physical Exam Vital Signs: Vital Signs: Last Vital Signs Temp 98.1 F 10/26/21 11:27 Pulse 107 H 10/26/21 11:27 Resp 20 10/26/21 11:27 BP 131/84 10/26/21 11:27 Pulse Ox 93 10/26/21 11:27 BMI result Body Mass Index 25.0 Gen: in mild respiratory distress HEENT: sclera anicteric, moist mucus membranes Neck: supple Lungs: clear to auscultation bilaterally Heart: regular, tachycardic, no murmurs Abd: soft, non-tender, non-distended Ext: no edema Skin: warm/well-perfused Neuro: alert and oriented x3, no focal findings Psych: appropriate affect Objective Data Active Medications Acetaminophen (Acetaminophen 325 Mg Tablet) 650 mg PO Q6H PRN PRN Reason: Pain, Mild (Pain Scale 1-3) Last Admin: 10/24/21 17:15 Dose: 650 mg Documented by: RADHA Albuterol Sulfate (Albuterol Sulfate 90 Mcg 8 Gm Inhaler) 2 puff INHALE RQ6H PRN PRN Reason: Shortness of Breath Last Admin: 10/22/21 14:25 Dose: 2 puff Documented by: BRONSNO Albuterol/Ipratropium (Albuterol/Iprat 2.5/0.5mg 3 Ml Ampul.Neb) 3 ml INHALE RQ4H PRN PRN Reason: Shortness of Breath Last Admin: 10/26/21 02:53 Dose: 3 ml Documented by: INEZ Anastrozole (Anastrozole 1 Mg Tablet) 1 mg PO DAILY [facility] Last Admin: 10/26/21 09:34 Dose: 1 mg Documented by: KAITLIN Baricitinib (Baricitinib 2 Mg Tablet) 4 mg PO DAILY [facility] Stop: 11/07/21 09:01 Last Admin: 10/26/21 09:33 Dose: 4 mg Documented by: KAITLIN Benzonatate (Benzonatate 100 Mg Capsule) 100 mg PO TID PRN PRN Reason: Cough Last Admin: 10/22/21 16:01 Dose: 100 mg Documented by: CONCEPCION Cyclobenzaprine HCl (Cyclobenzaprine Hcl 5 Mg Tablet) 5 mg PO TID PRN PRN Reason: back muscle spasm Last Admin: 10/24/21 17:14 Dose: 5 mg Documented by: RADHA Dexamethasone Sodium Phosphate (Dexamethasone Sod Phosphate 4 Mg/Ml Vial) 6 mg IVPUSH DAILY [facility] Last Admin: 10/26/21 09:32 Dose: 6 mg Documented by: KAITLIN Enoxaparin Sodium (Enoxaparin Sodium 40 Mg/0.4 Ml Syringe) 40 mg SUBCUT Q24H [facility] Last Admin: 10/25/21 21:03 Dose: 40 mg Documented by: JUANITA Hydroxyzine HCl (Hydroxyzine Hcl 50 Mg Tablet) 50 mg PO Q6H PRN PRN Reason: anxiety Last Admin: 10/26/21 11:01 Dose: 50 mg Documented by: KAITLIN Lidocaine (Lidocaine 4 % Patch Adh..Patch) 1 patch TRANSDERMA DAILY [facility]; Protocol Last Admin: 10/26/21 09:31 Dose: 1 patch Documented by: KAITLIN Loratadine (Loratadine 10 Mg Tablet) 10 mg PO DAILY PRN PRN Reason: Allergy Symptoms Melatonin (Melatonin 3 Mg Tablet) 6 mg PO BEDTIME PRN PRN Reason: Insomnia Last Admin: 10/22/21 22:38 Dose: 6 mg Documented by: YAZMIN Morphine Sulfate (Morphine Sulfate 2 Mg/Ml Cartridge) 2 mg IVPUSH Q2H PRN; Protocol PRN Reason: Pain, Moderate (Pain Scale 4-6 Ondansetron HCl (Ondansetron Hcl 4 Mg/2 Ml Vial) 4 mg IVPUSH Q8H PRN PRN Reason: Nausea and Vomiting Last Admin: 10/25/21 21:09 Dose: 4 mg Documented by: JUANITA Pharmacy Consult (Consult Rx Perform Med Rec) 1 each MISCELLANE ONCE PRN PRN Reason: Consult order Psyllium Hydrophilic Mucilloid (Psyllium Seed 3.4 Gm Powd.Pack) 3.4 gm PO DAILY [facility] Last Admin: 10/26/21 11:02 Dose: 3.4 gm Documented by: KAITLIN Senna/Docusate Sodium (Sennosides/Docusate Sodium Tablet) 2 tab PO BID [facility] Last Admin: 10/26/21 09:35 Dose: Not Given Documented by: KAITLIN Non-Admin Reason: Patient Refused Sodium Chloride (0.9 % Sodium Chloride Flush 3 Ml Syringe) 3 ml IVFLUSH QSHIFT [facility] Last Admin: 10/26/21 09:33 Dose: 3 ml Documented by: KAITLIN Vitamin D (Cholecalciferol (Vitamin D3) 25 Mcg Tablet) 25 mcg PO DAILY [facility] Last Admin: 10/26/21 09:33 Dose: 25 mcg Documented by: KAITLIN Zinc Sulfate (Zinc Sulfate 220 Mg Capsule) 220 mg PO DAILY [facility] Last Admin: 10/26/21 09:33 Dose: 220 mg Documented by: KAITLIN Labs CBC & Chem 7: 10/24/21 06:19 10/24/21 06:19 Assessment and Plan (1) Pneumonia due to 2019-nCoV: Status: Acute Assessment and Plan: hospital d#5 50yo unvaccinated F presenting after 4d of cough + dyspnea, admitted for hypoxia due to Covid-19 PNA # acute hypoxic resp failure - on HFNC, wean as tolerated, encourage awake proning # Covid-19 pneumonia - IV dexamethasone d#03/24. remdesivir not started due to transaminasemia. on baricitinib d#11/28 # hx of breast CA - continue anastrozole # anxiety - prn hydroxyazine # anemia - ferric carboxymaltose IV given per Heme/Onc # VTE ppx - LMWH I updated the pt's son Marquise by phone, [phone] Quality Stroke Does the patient have a stroke diagnosis?: No VTE Prior VTE?: No VTE Risk Level:: Medical - moderate - high VTE Device Contraindication: Treatment Not Indicated VTE Drug Contraindication: N/A - Med Ordered
--- NOTE | 2021-10-26 12:41 | MHC.CM.PN ---
per rounds pt remains on high flow 02 dc plan remains ho me with vna
[2021-10-26] MEDS: Acetaminophen 325 MG TABLET 650 MG PO (21:16)
[2021-10-26] MEDS: Enoxaparin Sodium 40 MG/0.4 ML SYRINGE SUBCUT (21:16)
[2021-10-27] VITALS (10 sets, daily range): BP systolic 112–140; BP diastolic 61–93; PULSE 76–95; RESP 17–24; TEMP 36.6–37.6; O2SAT 94–100
[2021-10-27 07:30] LABS: Hematocrit 31.9 % (37.0-47.0); Hemoglobin 10.6 g/dl (12.0-16.0); Mean Corpuscular HGB Conc 33.2 g/dl (31.0-35.0); Mean Corpuscular Hemoglobin 29.9 pg (27.0-33.0); Mean Corpuscular Volume 90.1 fL (80.0-98.0); Mean Platelet Volume 10.1 fL (9.4-12.3); Platelet Count 361 X10*3/uL (160-400); Red Blood Count 3.54 X10*6/uL (4.20-5.50); Red Cell Distribution Width 12.1 % (11.0-16.0); White Blood Count 10.4 X10*3/uL (4.8-10.8)
[2021-10-27 07:32] LABS: D Dimer High Sensitivity 584 NG/ML
[2021-10-27 07:46] LABS: Anion Gap 12 (12-20); Blood Urea Nitrogen 17 mg/dL (9-16); C Reactive Protein 4.88 mg/dL (< or = 0.50); Carbon Dioxide 28 mmol/L (22-29); Chloride 106 mmol/L (96-108); Creatinine Clr Calc Pharmacy 76.6; Estimated Glomerular Filt Rate > 60; Glucose Random 75 mg/dL (60-115); Sodium 142 mmol/L (135-145)
[2021-10-27] MEDS: Anastrozole 1 MG TABLET PO (09:05)
[2021-10-27] MEDS: Lidocaine 4 % Patch ADH..PATCH 1 PATCH TRANSDERMA (09:05)
[2021-10-27] MEDS: Cholecalciferol (Vitamin D3) 25 MCG TABLET PO (09:05)
[2021-10-27] MEDS: Zinc Sulfate 220 MG CAPSULE PO (09:05)
[2021-10-27] MEDS: 0.9 % Sodium Chloride Flush 3 ML SYRINGE IVFLUSH ×2 (09:06→16:25)
[2021-10-27] MEDS: dexAMETHasone sod phosphate 4 MG/ML VIAL 6 MG IVPUSH (09:06)
--- NOTE | 2021-10-27 11:33 | P.PNIM_ITS ---
Subjective Subjective Date of Service: 10/27/21 Interval History: Complaining of upper back pain, better with lidocaine patch, denies worsening cough, still coughing with milan phlegm, very anxious, no fevers, no chills, remains on high-flow 35 L finger oximetry 96%. Review of Systems Review of Systems: Yes all other systems are reviewed and are negative Physical Exam Vital Signs: Vital Signs: Last Vital Signs Temp 97.8 F 10/27/21 11:16 Pulse 92 10/27/21 11:16 Resp 24 H 10/27/21 11:16 BP 121/81 10/27/21 11:16 Pulse Ox 96 10/27/21 11:16 BMI result Body Mass Index 25.0 Gen: no respirator y distress HEENT: sclera anicteric, moist mucus membra tutu Neck: supple L ungs: clear to aus cultation , dimini shed Heart: regula r, no murmurs Abd: soft, non-tender, non-distended Ext : no edema Skin: w arm/well-perfused Neuro: alert and o riented x3, no foc al findings Psych: appropriate affec t, anxious Objective Data Active Medications Acetaminophen (Acetaminophen 325 Mg Tablet) 650 mg PO Q6H PRN PRN Reason: Pain, Mild (Pain Scale 1-3) Last Admin: 10/26/21 21:16 Dose: 650 mg Documented by: CHARLES Albuterol Sulfate (Albuterol Sulfate 90 Mcg 8 Gm Inhaler) 2 puff INHALE RQ6H PRN PRN Reason: Shortness of Breath Last Admin: 10/22/21 14:25 Dose: 2 puff Documented by: BRONSON Albuterol/Ipratropium (Albuterol/Iprat 2.5/0.5mg 3 Ml Ampul.Neb) 3 ml INHALE RQ4H PRN PRN Reason: Shortness of Breath Last Admin: 10/26/21 20:34 Dose: 3 ml Documented by: BULMARO Anastrozole (Anastrozole 1 Mg Tablet) 1 mg PO DAILY [facility] Last Admin: 10/27/21 09:05 Dose: 1 mg Documented by: KAITLIN Baricitinib (Baricitinib 2 Mg Tablet) 4 mg PO DAILY [facility] Stop: 11/07/21 09:01 Last Admin: 10/27/21 09:05 Dose: 4 mg Documented by: KAITLIN Benzonatate (Benzonatate 100 Mg Capsule) 100 mg PO TID PRN PRN Reason: Cough Last Admin: 10/22/21 16:01 Dose: 100 mg Documented by: CONCEPCION Cyclobenzaprine HCl (Cyclobenzaprine Hcl 5 Mg Tablet) 5 mg PO TID PRN PRN Reason: back muscle spasm Last Admin: 10/24/21 17:14 Dose: 5 mg Documented by: RADHA Dexamethasone Sodium Phosphate (Dexamethasone Sod Phosphate 4 Mg/Ml Vial) 6 mg IVPUSH DAILY [facility] Last Admin: 10/27/21 09:06 Dose: 6 mg Documented by: KATILIN Enoxaparin Sodium (Enoxaparin Sodium 40 Mg/0.4 Ml Syringe) 40 mg SUBCUT Q24H [facility] Last Admin: 10/26/21 21:16 Dose: 40 mg Documented by: CHARLES Hydroxyzine HCl (Hydroxyzine Hcl 50 Mg Tablet) 50 mg PO Q6H PRN PRN Reason: anxiety Last Admin: 10/26/21 21:16 Dose: 50 mg Documented by: CHARLES Lidocaine (Lidocaine 4 % Patch Adh..Patch) 1 patch TRANSDERMA DAILY [facility]; Protocol Last Admin: 10/27/21 09:05 Dose: 1 patch Documented by: KAITLIN Loratadine (Loratadine 10 Mg Tablet) 10 mg PO DAILY PRN PRN Reason: Allergy Symptoms Melatonin (Melatonin 3 Mg Tablet) 6 mg PO BEDTIME PRN PRN Reason: Insomnia Last Admin: 10/22/21 22:38 Dose: 6 mg Documented by: YAZMIN Ondansetron HCl (Ondansetron Hcl 4 Mg/2 Ml Vial) 4 mg IVPUSH Q8H PRN PRN Reason: Nausea and Vomiting Last Admin: 10/25/21 21:09 Dose: 4 mg Documented by: JUANITA Pharmacy Consult (Consult Rx Perform Med Rec) 1 each MISCELLANE ONCE PRN PRN Reason: Consult order Psyllium Hydrophilic Mucilloid (Psyllium Seed 3.4 Gm Powd.Pack) 3.4 gm PO DAILY [facility] Last Admin: 10/27/21 09:05 Dose: 3.4 gm Documented by: KAITLIN Senna/Docusate Sodium (Sennosides/Docusate Sodium Tablet) 2 tab PO BID [facility] Last Admin: 10/27/21 09:14 Dose: Not Given Documented by: Sodium Chloride (0.9 % Sodium Chloride Flush 3 Ml Syringe) 3 ml IVFLUSH QSHIFT [facility] Last Admin: 10/27/21 09:06 Dose: 3 ml Documented by: KAITLIN Vitamin D (Cholecalciferol (Vitamin D3) 25 Mcg Tablet) 25 mcg PO DAILY [facility] Last Admin: 10/27/21 09:05 Dose: 25 mcg Documented by: KAITLIN Zinc Sulfate (Zinc Sulfate 220 Mg Capsule) 220 mg PO DAILY [facility] Last Admin: 10/27/21 09:05 Dose: 220 mg Documented by: KAITLIN Labs CBC & Chem 7: 10/27/21 06:35 10/27/21 06:35 Labs: Laboratory Results - last 24 hr 10/27/21 10/27/21 10/27/21 06:35 06:35 06:35 MCV 90.1 MCH 29.9 MCHC 33.2 RDW 12.1 Plt Count 361 D MPV 10.1 Absolute Nucleated RBC 0.000 Nucleated RBC % (auto) 0.0 D-Dimer High Sensitivty 584 Anion Gap 12 Estim Creat Clear Calc 76.6 Estimated GFR > 60 Random Glucose 75 Calcium 9.0 C-Reactive Protein 4.88 H Microbiology Microbiology Results: Microbiology 10/21/21 15:47 Blood Culture - Final Blood - Venous No growth after 5 days. 10/21/21 15:47 Blood Culture - Final Blood - Venous No growth after 5 days. Assessment and Plan (1) Pneumonia due to 2019-nCoV: Status: Acute (2) Breast cancer: Status: Acute (3) Acute respiratory failure with hypoxia: Status: Acute (4) Iron deficiency anemia: Status: Acute Assessment and Plan: hospital d#6 50yo unvaccinated F presenting after 4d of cough + dyspnea, admitted for hypoxia due to Covid-19 PNA # acute hypoxic resp failure - no significant change in last 24 hours, HFNC, wean as tolerated, encourage awake proning, # Covid-19 pneumonia - IV dexamethasone d#04/23.? remdesivir not started due to transaminasemia.? on baricitinib d#12/26 # hx of breast CA - continue anastrozole # anxiety - prn hydroxyazine, support provided, back pain due to shortness of breath cough and stress continue Tylenol and lidocaine patch. # anemia - s/p ferric carboxymaltose IV given per Heme/Onc, hematocrit stable around 32. # VTE ppx - LMWH Quality Stroke Does the patient have a stroke diagnosis?: No VTE Prior VTE?: No VTE Risk Level:: Medical - moderate - high VTE Device Contraindication: Treatment Not Indicated VTE Drug Contraindication: N/A - Med Ordered
[2021-10-27] MEDS: Albuterol/Iprat 2.5/0.5MG 3 ML AMPUL.NEB INHALE ×2 (15:19→21:21)
[2021-10-27] MEDS: Melatonin 3 MG TABLET 6 MG PO (20:58)
[2021-10-27] MEDS: Enoxaparin Sodium 40 MG/0.4 ML SYRINGE SUBCUT (20:59)
[2021-10-28] MEDS: 0.9 % Sodium Chloride Flush 3 ML SYRINGE IVFLUSH ×3 (01:06→15:26)
[2021-10-28 03:10] VITALS: BP 127/79; PULSE 80; RESP 17; TEMP 36.7; O2SAT 99
[2021-10-28 08:00] VITALS: BP 121/78; PULSE 78; RESP 16; TEMP 36; O2SAT 96
[2021-10-28] MEDS: Lidocaine 4 % Patch ADH..PATCH 1 PATCH TRANSDERMA (10:14)
[2021-10-28] MEDS: Cholecalciferol (Vitamin D3) 25 MCG TABLET PO (10:15)
[2021-10-28] MEDS: dexAMETHasone sod phosphate 4 MG/ML VIAL 6 MG IVPUSH (10:15)
[2021-10-28] MEDS: Zinc Sulfate 220 MG CAPSULE PO (10:15)
[2021-10-28] MEDS: polyethylene glycoL 3350 17 GM POWD.PACK PO (10:15)
[2021-10-28] MEDS: Anastrozole 1 MG TABLET PO (10:15)
--- NOTE | 2021-10-28 11:53 | MHC.CM.PN ---
Per ROUNDS discussion, Patient is not yet medically cleared for dc (IV Decadron, 4L O2); Home is the goal for dc and CM will follow for possible need to adjust the dc plan.
[2021-10-28 12:00] VITALS: BP 120/80; PULSE 97; RESP 16; TEMP 36.3; O2SAT 95
[2021-10-28 14:46] VITALS: BP 132/68; PULSE 92; RESP 18; TEMP 36.9; O2SAT 96
--- NOTE | 2021-10-28 15:09 | HO.PM.IMPN ---
Subjective Subjective Date of Service: 10/28/21 Interval History: Very anxious complaining of generalized weakness, dry nose, oxygen requirement significantly improved currently on 4 L finger oximetry 96% Review of Systems Review of Systems: Yes all other systems are reviewed and are negative Physical Exam Vital Signs: Vital Signs: Last Vital Signs Temp 98.4 F 10/28/21 14:46 Pulse 92 10/28/21 14:46 Resp 18 10/28/21 14:46 BP 132/68 10/28/21 14:46 Pulse Ox 96 10/28/21 14:46 BMI result Body Mass Index 25.0 Gen: no respiratory distress HEENT:sclera anicteric,moist mucus membranes Neck: supple Lungs: clear to auscultation , diminished, no wheeze, no rhonchi Heart: regular, no murmurs Abd:?soft, non-tender,?non-distended Ext: no edema Skin: warm/well-perfused Neuro: alert and oriented x3, no focal findings Psych:?appropriate affect, anxious Objective Data Active Medications Acetaminophen (Acetaminophen 325 Mg Tablet) 650 mg PO Q6H PRN PRN Reason: Pain, Mild (Pain Scale 1-3) Last Admin: 10/26/21 21:16 Dose: 650 mg Documented by: CHARLES Albuterol Sulfate (Albuterol Sulfate 90 Mcg 8 Gm Inhaler) 2 puff INHALE RQ6H PRN PRN Reason: Shortness of Breath Last Admin: 10/22/21 14:25 Dose: 2 puff Documented by: BRONSON Albuterol/Ipratropium (Albuterol/Iprat 2.5/0.5mg 3 Ml Ampul.Neb) 3 ml INHALE RQ4H PRN PRN Reason: Shortness of Breath Last Admin: 10/27/21 21:21 Dose: 3 ml Documented by: REGINALD Anastrozole (Anastrozole 1 Mg Tablet) 1 mg PO DAILY [facility] Last Admin: 10/28/21 10:15 Dose: 1 mg Documented by: BROTerrence Baricitinib (Baricitinib 2 Mg Tablet) 4 mg PO DAILY [facility] Stop: 11/07/21 09:01 Last Admin: 10/28/21 10:15 Dose: 4 mg Documented by: BROB Benzonatate (Benzonatate 100 Mg Capsule) 100 mg PO TID PRN PRN Reason: Cough Last Admin: 10/22/21 16:01 Dose: 100 mg Documented by: CONCEPCION Cyclobenzaprine HCl (Cyclobenzaprine Hcl 5 Mg Tablet) 5 mg PO TID PRN PRN Reason: back muscle spasm Last Admin: 10/24/21 17:14 Dose: 5 mg Documented by: RADHA Dexamethasone (Dexamethasone 6 Mg Tablet) 6 mg PO DAILY [facility] Enoxaparin Sodium (Enoxaparin Sodium 40 Mg/0.4 Ml Syringe) 40 mg SUBCUT Q24H [facility] Last Admin: 10/27/21 20:59 Dose: 40 mg Documented by: JEANINE Famotidine (Famotidine 20 Mg Tablet) 20 mg PO DAILY [facility] Last Admin: 10/28/21 11:57 Dose: Not Given Documented by: JOYCELYN Non-Admin Reason: Patient Refused Hydroxyzine HCl (Hydroxyzine Hcl 50 Mg Tablet) 50 mg PO Q6H PRN PRN Reason: anxiety Last Admin: 10/26/21 21:16 Dose: 50 mg Documented by: CHARLES Lidocaine (Lidocaine 4 % Patch Adh..Patch) 1 patch TRANSDERMA DAILY [facility]; Protocol Last Admin: 10/28/21 10:14 Dose: 1 patch Documented by: JOYCELYN Loratadine (Loratadine 10 Mg Tablet) 10 mg PO DAILY PRN PRN Reason: Allergy Symptoms Melatonin (Melatonin 3 Mg Tablet) 6 mg PO BEDTIME PRN PRN Reason: Insomnia Last Admin: 10/27/21 20:58 Dose: 6 mg Documented by: JEANINE Ondansetron HCl (Ondansetron Hcl 4 Mg/2 Ml Vial) 4 mg IVPUSH Q8H PRN PRN Reason: Nausea and Vomiting Last Admin: 10/25/21 21:09 Dose: 4 mg Documented by: JUANITA Pharmacy Consult (Consult Rx Perform Med Rec) 1 each MISCELLANE ONCE PRN PRN Reason: Consult order Psyllium Hydrophilic Mucilloid (Psyllium Seed 3.4 Gm Powd.Pack) 3.4 gm PO DAILY [facility] Last Admin: 10/28/21 10:15 Dose: 3.4 gm Documented by: JOYCELYN Senna/Docusate Sodium (Sennosides/Docusate Sodium Tablet) 2 tab PO BID [facility] Last Admin: 10/28/21 10:31 Dose: Not Given Documented by: JOYCELYN Non-Admin Reason: Patient Refused Sodium Chloride (0.9 % Sodium Chloride Flush 3 Ml Syringe) 3 ml IVFLUSH QSHIFT [facility] Last Admin: 10/28/21 10:16 Dose: 3 ml Documented by: JOYCELYN Sodium Chloride (Sodium Chloride 0.65 % Nasal 44 Ml Sprbtl) 1 spray NOSTRIL-B Q1H PRN PRN Reason: Nasal Congestion Vitamin D (Cholecalciferol (Vitamin D3) 25 Mcg Tablet) 25 mcg PO DAILY [facility] Last Admin: 10/28/21 10:15 Dose: 25 mcg Documented by: JOYCELYN Zinc Sulfate (Zinc Sulfate 220 Mg Capsule) 220 mg PO DAILY [facility] Last Admin: 10/28/21 10:15 Dose: 220 mg Documented by: JOYCELYN Labs CBC & Chem 7: 10/27/21 06:35 10/27/21 06:35 Assessment and Plan (1) Acute respiratory failure with hypoxia: Status: Acute (2) Pneumonia due to 2019-nCoV: Status: Acute (3) Breast cancer: Status: Acute (4) Iron deficiency anemia: Status: Acute Assessment and Plan: 50yo unvaccinated F presenting after 4d of cough + dyspnea, admitted for hypoxia due to Covid-19 PNA # acute hypoxic resp failure due to COVID-19 pneumonia - very anxious significant improvement in oxygen requirement high-flow discontinued patient placed on 4 L of oxygen finger oximetry 96% will further wean down to 3 L Reassured patient recommend out of bed to chair and ambulation, will place a nasal saline spray On IV dexamethasone d#05/24.? Will transition to by mouth dexamethasone, remdesivir not started due to transaminasemia. ? on baricitinib d#01/26 Added Pepcid for GI prophylaxis Disposition to home will obtain home O2 eval prior to discharge # hx of breast CA - continue anastrozole # anxiety - prn hydroxyazine, support provided, back pain due to shortness of breath, cough and stress improved, continue Tylenol and lidocaine patch. # anemia - s/p ferric carboxymaltose IV given per Heme/Onc, hematocrit stable around 32. # VTE ppx - LMWH Quality Stroke Does the patient have a stroke diagnosis?: No VTE Prior VTE?: No VTE Risk Level:: Medical - moderate - high VTE Device Contraindication: Treatment Not Indicated VTE Drug Contraindication: N/A - Med Ordered
[2021-10-28] MEDS: Sodium Chloride 0.65 % Nasal 44 ML SPRBTL 1 SPRAY NOSTRIL-B (15:22)
--- NOTE | 2021-10-28 16:00 | PC.NURSE ---
Patient's O2 titrated down to 2L (per Dr. Alvarez' orders) Patient's O2 saturation sufficient at rest - 94%. Patient states she gets out of breath with activity and voiced concern about not being ready to go home tomorrow. Patient was advised to discuss concerns with provider when plan for d/c.
[2021-10-28 18:42] LABS: Appearance Urine CLEAR; Color Urine YELLOW; Glucose Urine UA NEG (NEG); Leukocyte Esterase Urine NEG (NEG); Nitrite Urine NEG (NEG); PH 6.5 (5.0-8.0); UACC Culture Trigger NO; Urine Blood TRACE (NEG); Urine Ketones NEG (NEG); Urine Protein NEG (NEG-TRACE)
[2021-10-28 18:53] LABS: Bacteria Urine 1+ /LPF; RBC Urine 0-2 /HPF (0); Urine Talc Crystals 1+ /LPF; WBC Urine 0 /HPF (0-4)
[2021-10-28 20:17] VITALS: BP 115/78; PULSE 91; RESP 18; TEMP 35.7; O2SAT 96
[2021-10-28] MEDS: Enoxaparin Sodium 40 MG/0.4 ML SYRINGE SUBCUT (22:00)
[2021-10-28] MEDS: Sennosides/Docusate Sodium TABLET 2 TAB PO (22:05)
[2021-10-28 23:35] VITALS: BP 122/81; PULSE 83; RESP 18; TEMP 36.7; O2SAT 96
[2021-10-29] MEDS: 0.9 % Sodium Chloride Flush 3 ML SYRINGE IVFLUSH ×2 (01:10→10:43)
[2021-10-29 03:38] VITALS: BP 103/78; PULSE 74; RESP 18; TEMP 36.3; O2SAT 96
[2021-10-29 07:26] VITALS: BP 133/82; PULSE 83; RESP 20; TEMP 36.5; O2SAT 95
[2021-10-29] MEDS: Zinc Sulfate 220 MG CAPSULE PO (10:43)
[2021-10-29] MEDS: Anastrozole 1 MG TABLET PO (10:43)
[2021-10-29] MEDS: Sennosides/Docusate Sodium TABLET 2 TAB PO (10:43)
[2021-10-29] MEDS: dexAMETHasone 6 MG TABLET PO (10:43)
[2021-10-29] MEDS: Lidocaine 4 % Patch ADH..PATCH 1 PATCH TRANSDERMA (10:44)
[2021-10-29] MEDS: Cholecalciferol (Vitamin D3) 25 MCG TABLET PO (10:44)
[2021-10-29 11:22] VITALS: BP 127/83; PULSE 87; RESP 18; TEMP 36.6; O2SAT 97
[2021-10-29 15:15] VITALS: PULSE 106; O2SAT 93
--- NOTE | 2021-10-29 15:29 | P.DS_ITS ---
DS: Providers Provider Date of Service: 10/29/21 Date of admission: 10/21/21 19:01 Primary care physician: Gino Powell MD Consults: 10/23/21 11:10 Consult to Infectious Diseases Routine Consulting Provider: Jaylin Su Reason for consultation: hypoxia. ?remdesivir DS: Diagnosis Discharge Diagnosis (1) Acute respiratory failure with hypoxia: Status: Acute (2) Pneumonia due to 2019-nCoV: Status: Acute (3) Breast cancer: Status: Acute (4) Iron deficiency anemia: Status: Acute DS: Summary Hospital Course Hospital Course: Chief Complaint: Shortness of breath ?50-year-old unvaccinated female presents with 4 days of worsening cough and exertional shortness of breath.? She also states fevers to 101.? She states today she had increasing cough and shortness of breath which prompted her to seek treatment.? In the emergency room COVID swab positive; CTA of chest fail to demonstrate acute pulmonary emboli however did show diffuse interstitial pneumonia consistent with COVID 19.? She will be admitted for treatment of the same Hospital course 50yo unvaccinated F presenting after 4d of cough + dyspnea, admitted for acute hypoxic respiratory failure due to COVID-19 pneumonia patient treated with IV dexamethasone,baricitinib, oxygen and supportive care, did not qualify for remdesivir due to elevated liver enzyme patient responded well to above treatment, hypoxia has resolved, home O2 eval showed stable oxygenation above 90% patient remained very anxious during the course of hospitalization and also has been constipated treated with stool softeners and Metamucil, recommend to drink plenty of fluids and take high-fiber diet common regard to anxiety support provided since patient is medically stable she is being discharged home on Metamucil , recommend to rest and drink plenty of fluids, in regard to history of breast cancer recommend to continue anastrozole In regard to anemia show she has been treated with ferric carboxymaltose IV given per Heme/Onc, hematocrit stable around 32. Time Spent with Patient Time attestation: Total time spent providing and/or coordinating discharge services: Discharge coordination time: Greater than 30 minutes Quality: Stroke Does the patient have a stroke diagnosis?: No Physical Exam Vital Signs: Vital Signs: Last Vital Signs Temp 97.8 F 10/29/21 11:22 Pulse 87 10/29/21 11:22 Resp 18 10/29/21 11:22 BP 127/83 10/29/21 11:22 Pulse Ox 97 10/29/21 11:22 BMI result Body Mass Index 25.0 Gen: no respiratory distress, very anxious Neck: supple Lungs: clear to auscultation , no wheeze, no rhonchi Heart: regular, no murmurs Abd:?soft, non-tender,?non-distended Ext: no edema Skin: warm/well-perfused Neuro: alert and oriented x3, no focal findings Psych:?appropriate affect, anxious DS: Data Data Completed and Pending Labs on day of discharge: Laboratory Results - last 24 hr 10/28/21 18:30 Urine Color YELLOW Urine Appearance CLEAR Urine pH 6.5 Ur Specific [place] 1.020 Urine Protein NEG Urine Glucose (UA) NEG Urine Ketones NEG Urine Blood TRACE Urine Nitrite NEG Ur Leukocyte Esterase NEG Urine RBC 0-2 Urine WBC 0 Ur Squamous Epith Cells NONE [place] Crystals 1+ Urine Bacteria 1+ Discharge Plan Discharge Patient Disposition: Home, Self-Care Discharge Diagnosis: Acute hypoxic respiratory failure due to COVID-19 Referrals: Gino Powell MD [Primary Care Provider] - 1 Week Discharge Medications: New Metamucil Fiber Singles 3.4 gram Powder In Packet 3.4 g PO DAILY Qty: 30 RF: 0 Continued anastrozole 1 mg Tablet 1 mg PO DAILY Qty: 90 RF: 4 cetirizine [Zyrtec] 10 mg Tablet 10 mg PO DAILY PRN (Reason: Allergy Symptoms) RF: 0 elderberry fruit 200 mg Capsule 200 mg PO DAILY RF: 0 cholecalciferol (vitamin D3) [Vitamin D3] 25 mcg (1,000 unit) Tablet 25 mcg PO DAILY RF: 0 Discharge Orders: Discharge Order (Routine); Ordered 10/29/21 Ordered By: Alvarado Alvarez Diet: advance to usual diet Activity on Discharge: As tolerated Stand Alone Forms: Patient Portal Discharge page Care Plan Goals: COVID-19 infection diagnostic October 21, continue wearing mask, rest, drink plenty of fluids, hypoxia resolved In regard to anxiety support provided Health Concerns: Breast cancer, constipation drink plenty of fluids take Metamucil ,daily salads, high-fiber diet and ambulate Plan of Treatment: Outpatient follow-up with primary care physician in 7-10 days Assessment: Per discharge summary
--- NOTE | 2021-10-29 16:23 | MHC.CM.PN ---
PT CLEARED TO DC HOME TODAY WITH NO SERVICES
== END 2021-10-29 18:24 | disposition home or self-care (01) | DRG 137 ==
LOC: HO.ED 18:36 → HO.EDOVER 19:15 → HO.IMC 10-22 18:31 → HO.EDOVER 10-22 19:23 → HO.IMC 10-22 19:26
PROVIDERS: Family Medicine; Admitting Provider Hospitalist; Emergency Provider Emergency Medicine; PCP Internal Medicine; Visit Provider Hospitalist
DX: U07.1 COVID-19 (principal); J96.01 Acute respiratory failure with hypoxia; J12.82 Pneumonia due to coronavirus disease 2019; F41.9 Anxiety disorder, unspecified; C50.912 Malignant neoplasm of unspecified site of left female breast; D50.9 Iron deficiency anemia, unspecified; Z79.811 Long term (current) use of aromatase inhibitors; Z88.0 Allergy status to penicillin; Z88.5 Allergy status to narcotic agent; Z79.899 Other long term (current) drug therapy
CPT/HCPCS: 36415; 71275; 80048; 80053; 80076; 81001; 82728; 82803; 83605; 83615; 83690; 84145; 84484; 85025; 85027; 85379; 85610; 86140; 87040; 87635; 93005; 94640; 99285; J1100; J1439; J1650; J1885; J1956; J2405; J8540; Q9967

== ENCOUNTER 2021-11-07 15:59 | Emergency (ER) | payer OTHER, SELFPAY ==
--- NOTE | ~2021-11-07 | XR_ITS ---
EXAMINATION: XR CHEST CLINICAL INFORMATION: SOB, post Covid. COMPARISON: CTA chest 10/21/2021 TECHNIQUE: Frontal view of the chest was obtained. FINDINGS: The lungs are hypoexpanded with patchy opacity seen throughout both lungs. No consolidation pleural effusion seen. Heart size and pulmonary vascularity is normal. There are surgical jeane in the left breast from previous intervention. XR/XR chest 1V IMPRESSION: Hypoexpanded lungs with bilateral patchy opacities likely infiltrate. Similar findings were seen on CTA chest 10/21/2021
[2021-11-07 16:05] VITALS: BP 143/96; PULSE 118; RESP 20; TEMP 37.7; O2SAT 95; BMI 24.5
[2021-11-07 16:28] LABS: MANUAL DIFF FLAG NO
[2021-11-07 16:32] LABS: Basophils Absolute Auto 0.1 X10*3/uL (0.0-0.2); Basophils Percent Auto 0.7 % (0-2); Eosinophils Absolute Auto 0.3 X10*3/uL (0.0-0.4); Eosinophils Percent Auto 3.8 % (0-4); Hematocrit 35.2 % (37.0-47.0); Hemoglobin 11.7 g/dl (12.0-16.0); Imm Gran Abs Auto 0.03 X10*3/uL (0.00-0.03); Imm Gran Pct Auto 0.4 % (0.0-0.4); Lymphocytes Absolute Auto 1.6 X10*3/uL (1.2-4.9); Lymphocytes Percent Auto 21.9 % (20-40); Mean Corpuscular HGB Conc 33.2 g/dl (31.0-35.0); Mean Corpuscular Hemoglobin 30.2 pg (27.0-33.0); Mean Corpuscular Volume 90.7 fL (80.0-98.0); Monocytes Absolute Auto 0.6 X10*3/uL (0.1-1.2); Monocytes Percent Auto 8.5 % (2-11); Neutrophils Absolute Auto 4.6 x10*3/uL (2.0-8.3); Neutrophils Percent Auto 64.7 % (45-73); Platelet Count 267 X10*3/uL (160-400); Red Blood Count 3.88 X10*6/uL (4.20-5.50); Red Cell Distribution Width 13.8 % (11.0-16.0); White Blood Count 7.2 X10*3/uL (4.8-10.8)
[2021-11-07 16:41] LABS: Anion Gap 11 (12-20); Blood Urea Nitrogen 12 mg/dL (9-16); Calcium 9.1 mg/dL (8.4-10.2); Carbon Dioxide 27 mmol/L (22-29); Chloride 108 mmol/L (96-108); Creatinine Clr Calc Pharmacy 72.2; Estimated Glomerular Filt Rate > 60; Glucose Random 119 mg/dL (60-115); Potassium 3.7 mmol/L (3.3-5.1); Sodium 142 mmol/L (135-145)
[2021-11-07 20:00] VITALS: BP 136/92; PULSE 111; RESP 20; TEMP 36.9; O2SAT 95
--- NOTE | 2021-11-07 21:02 | ED.SOB ---
HPI - SOB/Dyspnea General Chief Complaint: Dyspnea Stated Complaint: Shortness of breath, high resp. rate, const. Time Seen by Provider: 11/07/21 20:51 Source: patient Mode of arrival: ambulatory Limitations: no limitations History of Present Illness HPI Narrative: Patient with history of COVID on 10/21 admitted received monoclonal antibody is not vaccinated against COVID with background history of breast cancer comes back as she is still coughing and feeling short of breath with pain posteriorly in the chest when takes a deep breath specially on the right side had low-grade fever also cough is mostly dry specially when she takes a deep breath. PCP prescribed her albuterol inhaler but whenever she takes it makes her heart palpitation Related Data Home Medications Medication Instructions Recorded Confirmed cetirizine 10 mg tablet (Zyrtec) 10 mg PO DAILY PRN 12/07/20 10/21/21 cholecalciferol (vitamin D3) 25 25 mcg PO DAILY 10/21/21 10/21/21 mcg (1,000 unit) tablet (Vitamin D3) elderberry fruit 200 mg capsule 200 mg PO DAILY 10/21/21 10/21/21 Previous Rx's Medication Instructions Recorded anastrozole 1 mg tablet 1 mg PO DAILY #90 tab 10/05/21 psyllium husk (aspartame) 3.4 gram 3.4 g PO DAILY #30 ea 10/29/21 oral powder packet (Metamucil Fiber Singles) codeine 10 mg-guaifenesin 100 mg/5 10 ml PO Q6H PRN #237 ml 11/08/21 mL oral liquid dexamethasone 6 mg tablet 6 mg PO DAILY #7 tab 11/08/21 (Decadron) levalbuterol tartrate 45 2 puff INHALATION Q4-6H PRN #15 g 11/08/21 mcg/actuation aerosol inhaler (Xopenex HFA) Allergies Allergy/AdvReac Type Severity Reaction Status Date / Time Penicillins Allergy Unknown Unknown Verified 11/07/21 16:05 oxycodone [From Percocet] AdvReac Mild Confusion Verified 11/07/21 16:05 minocycline AdvReac Unknown Unknown Verified 11/07/21 16:05 Review of Systems Review of Systems: Yes all other systems are reviewed and are negative PMFSH Past Medical History Medical History Breast cancer History of anxiety History of COVID-19 History of pancytopenia History of seizures History of vitamin D deficiency Hx of alopecia Hx of breast cancer Hx of chronic inflammatory arthritis Hx of low back pain Hx of seasonal allergies Hx of sinusitis Hx of transfusion Iron deficiency anemia Seroma of breast Surgical History History of esophagogastroduodenoscopy (EGD) History of removal of Port-a-Cath Hx of section Hx of colonoscopy Hx of hysterectomy Hx of lumpectomy Hx of lymph node excision Family History Family History Mother Diabetes Hypertension Asthma Father Diabetes Paternal Grandfather Colon cancer Diabetes Hypertension Paternal Grandmother Diabetes Hypertension Maternal Grandmother Diabetes Hypertension Brother Diabetes Social History Social History Household Members: None Housing: Apartment Do you presently have visiting nurse or other home services: No Alcohol intake: never Patient Tobacco Use Status: Never used Tobacco Use of substances other than those prescribed or required for medical reasons: No Advance Directives: No Advance Directives Information Provided: Yes Patient : No service: No Physical Exam Vital Signs: Vital Signs: Last Vital Signs Temp 98.8 F 11/07/21 22:00 Pulse 65 11/07/21 23:55 Resp 18 11/07/21 22:49 BP 188/75 H 11/07/21 23:55 Pulse Ox 97 11/07/21 23:55 BMI result Body Mass Index 24.5 Appearance: Alert. Oriented X3. Mild distress. Eyes: No pallor or icterus ENT: Pharynx normal. Oral Mucosa moist Neck: Normal inspection. Neck supple. CVS: Sinus tachycardia no murmur rub or gallop Pulses normal. Respiratory: Mild respiratory distress. Equal air entry bilateral, no wheezing bilateral conducted sounds specially at bases Abdomen: Soft and nontender. Bowel sounds are present, no mass palpable, no CVA tenderness Skin: Skin warm and dry. Normal skin color. Normal skin turgor. Extremities: No lower extremity edema. No calf tenderness Neuro: Oriented X 3. MDM - SOB/Dyspnea MDM Narrative Medical decision making narrative: Patient feeling much better after Xopenex treatment lungs are almost clear will discharge patient home on Xopenex inhaler Decadron and codeine cough syrup for pain patient is saturating 97% at room air Medical Records Attestation: I reviewed the patient's medical records. Lab Data Attestation: I reviewed the patient's lab results. Result diagrams: 11/07/21 16:17 11/07/21 16:17 Labs: Lab Results 11/07/21 11/07/21 Range/Units 16:17 16:17 WBC 7.2 (4.8-10.8) X10*3/uL RBC 3.88 L (4.20-5.50) X10*6/uL Hgb 11.7 L (12.0-16.0) g/dl Hct 35.2 L (37.0-47.0) % MCV 90.7 (80.0-98.0) fL MCH 30.2 (27.0-33.0) pg MCHC 33.2 (31.0-35.0) g/dl RDW 13.8 (11.0-16.0) % Plt Count 267 D (160-400) X10*3/uL MPV 10.0 (9.4-12.3) fL Immature Gran % (Auto) 0.4 (0.0-0.4) % Neut % (Auto) 64.7 (45-73) % Lymph % (Auto) 21.9 (20-40) % [place] % (Auto) 8.5 (2-11) % Eos % (Auto) 3.8 (0-4) % Baso % (Auto) 0.7 (0-2) % Lymph # (Auto) 1.6 (1.2-4.9) X10*3/uL [place] # (Auto) 0.6 (0.1-1.2) X10*3/uL Eos # (Auto) 0.3 (0.0-0.4) X10*3/uL Baso # (Auto) 0.1 (0.0-0.2) X10*3/uL Abs Immat Gran (auto) 0.03 (0.00-0.03) X10*3/uL Absolute Neuts (auto) 4.6 (2.0-8.3) x10*3/uL Absolute Nucleated RBC 0.000 (0.0-0.012) X10*3/uL Nucleated RBC % (auto) 0.0 (0.0-0.2) /100WBC Sodium 142 (135-145) mmol/L Potassium 3.7 (3.3-5.1) mmol/L Chloride 108 (96-108) mmol/L Carbon Dioxide 27 (22-29) mmol/L Anion Gap 11 L (12-20) BUN 12 (9-16) mg/dL Creatinine 0.81 (0.5-1.4) mg/dL Estim Creat Clear Calc 72.2 Estimated GFR > 60 Random Glucose 119 H (60-115) mg/dL Calcium 9.1 (8.4-10.2) mg/dL Magnesium 1.9 (1.6-2.6) mg/dL Discharge Plan Discharge Clinical Impression: COVID-19 Acute bronchitis Qualifiers: Bronchitis organism: unspecified organism Qualified Code(s): J20.9 - Acute bronchitis, unspecified Patient Disposition: Home, Self-Care Instructions: Acute Bronchitis (ED), COVID-19 (Coronavirus Disease 2019) (ED) Additional Instructions: Cough syrup and Decadron as advised Takes Xopenex inhaler every 4-6 hours for wheezing/cough Prescriptions: New dexamethasone [Decadron] 6 mg tablet 6 mg PO DAILY Qty: 7 RF: 0 levalbuterol tartrate [Xopenex HFA] 45 mcg/actuation HFA aerosol inhaler 2 puff inhalation Q4-6H PRN (Reason: shortness of breath or wheezing) Qty: 15 RF: 0 codeine-guaifenesin 10-100 mg/5 mL liquid 10 ml PO Q6H PRN (Reason: cough) Qty: 237 RF: 0 No Action anastrozole 1 mg Tablet 1 mg PO DAILY Qty: 90 RF: 4 cetirizine [Zyrtec] 10 mg Tablet 10 mg PO DAILY PRN (Reason: Allergy Symptoms) RF: 0 elderberry fruit 200 mg Capsule 200 mg PO DAILY RF: 0 cholecalciferol (vitamin D3) [Vitamin D3] 25 mcg (1,000 unit) Tablet 25 mcg PO DAILY RF: 0 Metamucil Fiber Singles 3.4 gram Powder In Packet 3.4 g PO DAILY Qty: 30 RF: 0
[2021-11-07 21:30] LABS: Magnesium 1.9 mg/dL (1.6-2.6)
[2021-11-07] MEDS: guaiFEN/Codeine SF 200/20/10ML 10 ML LIQUID PO (21:41)
--- NOTE | 2021-11-07 21:52 | PC.NURSE ---
pt medicated per order, attempted iv access- unable to gain access, another ed nurse to attempt access.
--- NOTE | 2021-11-07 21:53 | PC.NURSE ---
respiratory called for updraft
[2021-11-07 22:00] VITALS: BP 124/95; PULSE 105; RESP 18; TEMP 37.1; O2SAT 95
[2021-11-07 22:49] VITALS: PULSE 102; RESP 18; O2SAT 97
[2021-11-07 23:55] VITALS: BP 188/75; PULSE 65; O2SAT 97
[2021-11-08] MEDS: ondansetron HCL 4 MG/2 ML VIAL IVPUSH (00:41)
[2021-11-08] MEDS: Ketorolac Tromethamine 30 MG/ML VIAL IVPUSH (00:44)
[2021-11-08] MEDS: methylPREDNISolone Sod Succ 125 MG/2 ML VIAL IVPUSH (00:45)
[2021-11-08 00:56] VITALS: BP 114/77; PULSE 98; RESP 16; O2SAT 94
== END 2021-11-08 01:05 | disposition home or self-care (01) ==
PROVIDERS: Emergency Provider Internal Medicine; PCP Internal Medicine
DX: U07.1 COVID-19 (principal); J20.9 Acute bronchitis, unspecified; Z85.3 Personal history of malignant neoplasm of breast
CPT/HCPCS: 36415; 71045; 80048; 83735; 85025; 94640; 94644; 96374; 96375; 99284; J1885; J2405; J2930

== ENCOUNTER 2021-11-09 13:04 | Emergency (ER) | payer OTHER, SELFPAY ==
[2021-11-09 13:11] VITALS: BP 156/94; PULSE 107; RESP 18; TEMP 36.7; O2SAT 95; BMI 23.8
--- NOTE | 2021-11-09 13:15 | ECG_ITS ---
Test Reason : right lung pain/ low potassium/magnesium Blood Pressure : / mmHG Vent. Rate : 099 BPM Atrial Rate : 099 BPM P-R Int : 114 ms QRS Dur : 070 ms QT Int : 314 ms P-R-T Axes : 059 018 018 degrees QTc Int : 402 ms Normal sinus rhythm Normal ECG When compared with ECG of 21-OCT-2021 15:03, No significant change was found Referred By: Generic ED Physician Electronically Signed By:CLAUDIA ROACH MD
--- NOTE | 2021-11-09 14:43 | ED_ITS ---
HPI - Chest Pain General Chief Complaint: Chest Pain Stated Complaint: cough pain in r lung Time Seen by Provider: 11/09/21 14:18 Source: patient and old records reviewed History of Present Illness HPI narrative: Patient has a recent history of COVID-19 pneumonia at the beginning of this month for which she was hospitalized. She presents again today because of right-sided chest and back pain. She states it is sharp and worse with movement and coughing. She was seen here yesterday and worked up with a chest x-ray and lab work which was all unremarkable. She returns this morning because the pain is still there, getting worse. No recent significant fevers or chills. Positive cough without sputum. No history of thromboembolic disease. No calf swelling or tenderness. No history of similar issues. She does have a history of breast cancer in the past. Related Data Home Medications Medication Instructions Recorded Confirmed cetirizine 10 mg tablet (Zyrtec) 10 mg PO DAILY PRN 12/07/20 10/21/21 cholecalciferol (vitamin D3) 25 25 mcg PO DAILY 10/21/21 10/21/21 mcg (1,000 unit) tablet (Vitamin D3) elderberry fruit 200 mg capsule 200 mg PO DAILY 10/21/21 10/21/21 Previous Rx's Medication Instructions Recorded anastrozole 1 mg tablet 1 mg PO DAILY #90 tab 10/05/21 psyllium husk (aspartame) 3.4 gram 3.4 g PO DAILY #30 ea 10/29/21 oral powder packet (Metamucil Fiber Singles) codeine 10 mg-guaifenesin 100 mg/5 10 ml PO Q6H PRN #237 ml 11/08/21 mL oral liquid dexamethasone 6 mg tablet 6 mg PO DAILY #7 tab 11/08/21 (Decadron) levalbuterol tartrate 45 2 puff INHALATION Q4-6H PRN #15 g 11/08/21 mcg/actuation aerosol inhaler (Xopenex HFA) humidifiers #1 ea 11/09/21 magnesium oxide 400 mg (241.3 mg 400 mg PO DAILY #30 tab 11/09/21 magnesium) tablet potassium chloride 10 mEq 10 meq PO DAILY #30 cap 11/09/21 capsule,extended release sennosides 8.6 mg tablet (senna) 8.6 mg PO BID PRN #30 tab 11/09/21 Allergies Allergy/AdvReac Type Severity Reaction Status Date / Time Penicillins Allergy Unknown Unknown Verified 11/07/21 16:05 oxycodone [From AdvReac Mild Confusion Verified 11/07/21 16:05 Percocet] minocycline AdvReac Unknown Unknown Verified 11/07/21 16:05 Review of Systems Verdana 4l Constitutional: Verdana 4d Comments: Verdana 4d Verdana 4d Verdana 4d General malaise Verdana 4d Verdana 4l Cardiovascular: Verdana 4d Comments: Verdana 4d Verdana 4d Verdana 4d No anterior chest pain Verdana 4d Verdana 4l Respiratory: Verdana 4d Verdana 4d Comments: Verdana 4d Verdana 4d Cough without sputum Verdana 4d Verdana 4l Gastrointestinal: Verdana 4d Comments: Verdana 4d Verdana 4d Verdana 4d No nausea vomiting diarrhea. Positive constipation. Verdana 4d Verdana 4l Musculoskeletal: Verdana 4d Comments: Verdana 4d Verdana 4d Verdana 4d No calf pain or pedal edema Verdana 4d Verdana 4l Integumentary/Breasts: Verdana 4d Comments: Verdana 4d Verdana 4d Verdana 4d Dry skin. No rash Verdana 4d Verdana 4l Neurologic: Verdana 4d Verdana 4d Comments: Verdana 4d Verdana 4d No focal weakness numbness or paresthesias. She states she did have hand cramping yesterday. Verdana 4d PMFSH Past Medical History Medical History (Updated 11/09/21 @ 19:05 by Juanjose Stanton MD) Breast cancer History of anxiety History of COVID-19 History of pancytopenia History of seizures History of vitamin D deficiency Hx of alopecia Hx of breast cancer Hx of chronic inflammatory arthritis Hx of low back pain Hx of seasonal allergies Hx of sinusitis Hx of transfusion Iron deficiency anemia Seroma of breast Surgical History History of esophagogastroduodenoscopy (EGD) History of removal of Port-a-Cath Hx of section Hx of colonoscopy Hx of hysterectomy Hx of lumpectomy Hx of lymph node excision Family History Family History Mother Diabetes Hypertension Asthma Father Diabetes Paternal Grandfather Colon cancer Diabetes Hypertension Paternal Grandmother Diabetes Hypertension Maternal Grandmother Diabetes Hypertension Brother Diabetes Social History Social History Household Members: None Housing: Apartment Do you presently have visiting nurse or other home services: No Alcohol intake: never Patient Tobacco Use Status: Never used Tobacco Use of substances other than those prescribed or required for medical reasons: No Advance Directives: No Advance Directives Information Provided: Yes Patient : No service: No Physical Exam Verdana 4l Vital Signs: Verdana 4d Verdana 4d Vital Signs: Verdana 4d Verdana 4Bd Last Vital Signs Verdana 4d Gelatin Maker Utility New 4d Gelatin Maker Utility New 4d Temp 98.2 F 11/09/21 17:39 Gelatin Maker Utility New 4d Pulse 90 11/09/21 17:39 Gelatin Maker Utility New 4d Resp 20 11/09/21 17:39 BP 119/81 11/09/21 17:39 Pulse Ox 99 11/09/21 17:39 BMI result Body Mass Index 23.8 Const: Other: Awake and alert no acute distress. Vital signs stable. Mild tachycardia. Chest: Other: Minimal posterior chest wall tenderness to palpation. No deformity. No rash Resp: Other: Clear and equal bilaterally without wheezes rales or rhonchi. Good air entry Cardio: Other: Heart rate of slightly over 100. Otherwise regular rhythm without murmurs rubs or gallops GI: Other: Soft nontender nondistended Skin: Other: Warm and dry without rash Neuro: Other: Awake and alert no acute distress. No neuro deficits Course Course Course Narrative: Patient with pleuritic chest and flank pain several weeks post COVID-19 infection. Worked up yesterday within normal chest x-ray and lab work. Likely postviral inflammatory pain. Will obtain a D-dimer for potential thromboembolic cause. She does not have signs and symptoms consistent with postviral bacterial pneumo gadiel at this time. She has been treated with antibiotics. No sputum no fevers. Review of yesterday's workup shows white count was normal. Electrolytes including calcium, magnesium, potassium were within normal limits. She has very difficult IV access which complicates her workup. She is able to take p.o. fluids and medications at this time. We will try to obtain lab work but will hold off on peripheral IV access for now. Will obtain IV access if the D-dimer is elevated or other significant abnormalities. 7:02 p.m.. D-dimer is 275 today which is significantly lower than 584 13 days ago. Her symptoms seem more in line with inflammatory process as opposed thromboembolic process given these findings. Patient feels much better after bolus of IV fluids with potassium and magnesium. Stable for discharge home MDM - Chest Pain Lab Data Result diagrams: 11/09/21 15:38 11/09/21 15:38 Labs: Lab Results 11/09/21 11/09/21 11/09/21 Range/Units 15:38 15:38 15:38 WBC 10.6 (4.8-10.8) X10*3/uL RBC 3.46 L (4.20-5.50) X10*6/uL Hgb 10.4 L (12.0-16.0) g/dl Hct 32.2 L (37.0-47.0) % MCV 93.1 (80.0-98.0) fL MCH 30.1 (27.0-33.0) pg MCHC 32.3 (31.0-35.0) g/dl RDW 14.3 (11.0-16.0) % Plt Count 196 D (160-400) X10*3/uL MPV 9.7 (9.4-12.3) fL Immature Gran % (Auto) 0.3 (0.0-0.4) % Neut % (Auto) 65.1 (45-73) % Lymph % (Auto) 24.0 (20-40) % [place] % (Auto) 8.4 (2-11) % Eos % (Auto) 1.8 (0-4) % Baso % (Auto) 0.4 (0-2) % Lymph # (Auto) 2.5 (1.2-4.9) X10*3/uL Bee # (Auto) 0.9 (0.1-1.2) X10*3/uL Eos # (Auto) 0.2 (0.0-0.4) X10*3/uL Baso # (Auto) 0.0 (0.0-0.2) X10*3/uL Abs Immat Gran (auto) 0.03 (0.00-0.03) X10*3/uL Absolute Neuts (auto) 6.9 (2.0-8.3) x10*3/uL Absolute Nucleated RBC 0.000 (0.0-0.012) X10*3/uL Nucleated RBC % (auto) 0.0 (0.0-0.2) /100WBC D-Dimer High Sensitivty 275 NG/ML Sodium 142 (135-145) mmol/L Potassium 3.3 (3.3-5.1) mmol/L Chloride 109 H (96-108) mmol/L Carbon Dioxide 25 (22-29) mmol/L Anion Gap 11 L (12-20) BUN 19 H D (9-16) mg/dL Creatinine 0.79 (0.5-1.4) mg/dL Estim Creat Clear Calc 68.1 Estimated GFR > 60 Random Glucose 105 (60-115) mg/dL Calcium 8.7 (8.4-10.2) mg/dL Magnesium (1.6-2.6) mg/dL Total Bilirubin 0.2 (0.0-1.0) mg/dL AST 21 (5-31) U/L ALT 33 H (0-31) U/L Alkaline Phosphatase 123 H D (39-117) U/L Total Protein 6.9 (6.5-8.0) g/dL Albumin 3.7 (3.5-5.0) g/dL 11/09/21 Range/Units 15:39 WBC (4.8-10.8) X10*3/uL RBC (4.20-5.50) X10*6/uL Hgb (12.0-16.0) g/dl Hct (37.0-47.0) % MCV (80.0-98.0) fL MCH (27.0-33.0) pg MCHC (31.0-35.0) g/dl RDW (11.0-16.0) % Plt Count (160-400) X10*3/uL MPV (9.4-12.3) fL Immature Gran % (Auto) (0.0-0.4) % Neut % (Auto) (45-73) % Lymph % (Auto) (20-40) % [place] % (Auto) (2-11) % Eos % (Auto) (0-4) % Baso % (Auto) (0-2) % Lymph # (Auto) (1.2-4.9) X10*3/uL Bee # (Auto) (0.1-1.2) X10*3/uL Eos # (Auto) (0.0-0.4) X10*3/uL Baso # (Auto) (0.0-0.2) X10*3/uL Abs Immat Gran (auto) (0.00-0.03) X10*3/uL Absolute Neuts (auto) (2.0-8.3) x10*3/uL Absolute Nucleated RBC (0.0-0.012) X10*3/uL Nucleated RBC % (auto) (0.0-0.2) /100WBC D-Dimer High Sensitivty NG/ML Sodium (135-145) mmol/L Potassium (3.3-5.1) mmol/L Chloride (96-108) mmol/L Carbon Dioxide (22-29) mmol/L Anion Gap (12-20) BUN (9-16) mg/dL Creatinine (0.5-1.4) mg/dL Estim Creat Clear Calc Estimated GFR Random Glucose (60-115) mg/dL Calcium 8.8 (8.4-10.2) mg/dL Magnesium 1.8 (1.6-2.6) mg/dL Total Bilirubin (0.0-1.0) mg/dL AST (5-31) U/L ALT (0-31) U/L Alkaline Phosphatase (39-117) U/L Total Protein (6.5-8.0) g/dL Albumin (3.5-5.0) g/dL Discharge Plan Discharge Clinical Impression: Atypical chest pain, Acute dehydration Patient Disposition: Home, Self-Care Instructions: Dehydration (ED), Chest Wall Pain (ED) Prescriptions: New (DME) humidifiers Misc See Rx Instructions .Route Qty: 1 0RF Rx Instructions: As directed sennosides [senna] 8.6 mg tablet 8.6 mg PO BID PRN (Reason: constipation) Qty: 30 0RF magnesium oxide 400 mg (241.3 mg magnesium) tablet 400 mg PO DAILY Qty: 30 0RF potassium chloride 10 mEq capsule, extended release 10 meq PO DAILY Qty: 30 0RF No Action anastrozole 1 mg Tablet 1 mg PO DAILY Qty: 90 4RF cetirizine [Zyrtec] 10 mg Tablet 10 mg PO DAILY PRN (Reason: Allergy Symptoms) 0RF elderberry fruit 200 mg Capsule 200 mg PO DAILY 0RF cholecalciferol (vitamin D3) [Vitamin D3] 25 mcg (1,000 unit) Tablet 25 mcg PO DAILY 0RF Metamucil Fiber Singles 3.4 gram Powder In Packet 3.4 g PO DAILY Qty: 30 0RF dexamethasone [Decadron] 6 mg tablet 6 mg PO DAILY Qty: 7 0RF levalbuterol tartrate [Xopenex HFA] 45 mcg/actuation HFA aerosol inhaler 2 puff inhalation Q4-6H PRN (Reason: shortness of breath or wheezing) Qty: 15 0RF codeine-guaifenesin 10-100 mg/5 mL liquid 10 ml PO Q6H PRN (Reason: cough) Qty: 237 0RF
[2021-11-09] MEDS: Ketorolac Tromethamine 30 MG/ML VIAL IM (15:15)
[2021-11-09] MEDS: Ondansetron ODT 4 MG TAB.RAPDIS TRANSLINGU (15:16)
[2021-11-09 15:20] VITALS: BP 131/81; PULSE 90; RESP 18; TEMP 36.8; O2SAT 98
--- NOTE | 2021-11-09 15:21 | PC.NURSE ---
patient a&ox3, vss, pt medicated per order, pt difficult stick will call phlebotomy to obtain labs, pt denies chest pain at this time her c/o pain is rt upper back, will continue to monitor
[2021-11-09 15:43] LABS: MANUAL DIFF FLAG NO
[2021-11-09 15:46] LABS: Basophils Percent Auto 0.4 % (0-2); Eosinophils Absolute Auto 0.2 X10*3/uL (0.0-0.4); Eosinophils Percent Auto 1.8 % (0-4); Hematocrit 32.2 % (37.0-47.0); Hemoglobin 10.4 g/dl (12.0-16.0); Imm Gran Abs Auto 0.03 X10*3/uL (0.00-0.03); Imm Gran Pct Auto 0.3 % (0.0-0.4); Lymphocytes Absolute Auto 2.5 X10*3/uL (1.2-4.9); Mean Corpuscular HGB Conc 32.3 g/dl (31.0-35.0); Mean Corpuscular Hemoglobin 30.1 pg (27.0-33.0); Mean Corpuscular Volume 93.1 fL (80.0-98.0); Mean Platelet Volume 9.7 fL (9.4-12.3); Monocytes Absolute Auto 0.9 X10*3/uL (0.1-1.2); Monocytes Percent Auto 8.4 % (2-11); Neutrophils Absolute Auto 6.9 x10*3/uL (2.0-8.3); Neutrophils Percent Auto 65.1 % (45-73); Platelet Count 196 X10*3/uL (160-400); Red Blood Count 3.46 X10*6/uL (4.20-5.50); Red Cell Distribution Width 14.3 % (11.0-16.0); White Blood Count 10.6 X10*3/uL (4.8-10.8)
[2021-11-09 15:58] LABS: D Dimer High Sensitivity 275 NG/ML
[2021-11-09 16:00] LABS: Alanine Aminotransferase 33 U/L (0-31); Albumin Level 3.7 g/dL (3.5-5.0); Alkaline Phosphatase 123 U/L (39-117); Anion Gap 11 (12-20); Aspartate Amino Transferase 21 U/L (5-31); Bilirubin Total 0.2 mg/dL (0.0-1.0); Blood Urea Nitrogen 19 mg/dL (9-16); Calcium 8.7 mg/dL (8.4-10.2); Carbon Dioxide 25 mmol/L (22-29); Chloride 109 mmol/L (96-108); Creatinine Clr Calc Pharmacy 68.1; Estimated Glomerular Filt Rate > 60; Glucose Random 105 mg/dL (60-115); Potassium 3.3 mmol/L (3.3-5.1); Sodium 142 mmol/L (135-145); Total Protein 6.9 g/dL (6.5-8.0)
[2021-11-09 16:06] LABS: Calcium 8.8 mg/dL (8.4-10.2); Magnesium 1.8 mg/dL (1.6-2.6)
[2021-11-09] MEDS: Magnesium Sulfate/H2O 2 GM/50 ML PIGGYBACK IV (16:51)
--- NOTE | 2021-11-09 16:57 | PC.NURSE ---
iv inserted, engine monitor applied, pt nsr 80s, pt medicated with ivf per order, will continue to monitor.
[2021-11-09 17:39] VITALS: BP 119/81; PULSE 90; RESP 20; TEMP 36.8; O2SAT 99
[2021-11-09 19:06] VITALS: BP 141/87; PULSE 99; RESP 14; TEMP 37; O2SAT 96
== END 2021-11-09 19:36 | disposition home or self-care (01) ==
PROVIDERS: Emergency Provider Emergency Medicine; PCP Internal Medicine
DX: R07.89 Other chest pain (principal); E86.0 Dehydration; Z87.01 Personal history of pneumonia (recurrent); Z86.16 Personal history of COVID-19
CPT/HCPCS: 36415; 80053; 82310; 83735; 85025; 85379; 93005; 96365; 96366; 96372; 96375; 99285; J1885; J3475

== ENCOUNTER 2021-11-17 10:24 | Outpatient (REF) | payer OTHER, SELFPAY ==
--- NOTE | ~2021-11-17 | XR_ITS ---
EXAMINATION: XR RIBS, RIGHT CLINICAL INFORMATION: Chest pain. Unspecified. COMPARISON: Chest x-ray 11/07/2021 and CTA chest 10/21/2021 TECHNIQUE: 3 views of the right ribs were obtained. FINDINGS: Heart is normal in size. Patchy bilateral airspace disease persists and is relatively similar to minimally decreased in prominence. No gross lobar consolidation identified. No pleural effusion or pneumothorax. Surgical clips project over the left breast. No right-sided rib fracture. XR/XR ribs RT min 3V w CXR1V IMPRESSION: -No right-sided rib fracture. -Patchy bilateral airspace disease is stable to minimally decreased in prominence.
== END 2021-11-17 10:25 | disposition home or self-care (01) ==
LOC: HO.XRAY 10:24
PROVIDERS: PCP Internal Medicine; Visit Provider Internal Medicine Pulmonary Disease
DX: R07.9 Chest pain, unspecified (principal); Z86.16 Personal history of COVID-19
CPT/HCPCS: 71101; 99202

== ENCOUNTER 2021-12-01 13:06 | Outpatient (REF) | payer OTHER, SELFPAY ==
--- NOTE | ~2021-12-01 | CT_ITS ---
EXAMINATION: CT CHEST WITHOUT CONTRAST CLINICAL INFORMATION: Chest pain. COMPARISON: CT angiogram chest 10/21/2021. TECHNIQUE: Multidetector volumetric CT imaging of the chest was done. Axial MIP volume rendering provided. Sagittal and coronal reformatted images were obtained. This CT examination was performed using dose optimization techniques as appropriate, variously including the following: Automated exposure control. Adjustment of mA and/or kV according to patient size (this includes techniques or standardized protocols for targeted exams where dose is matched to indication/reason for exam; i.e. extremities or head). Use of iterative reconstruction technique. DLP: 206 mGy-cm FINDINGS: LUNGS: Compared with the prior study, there has been a dramatic improvement in appearances with resolution of the multifocal peripheral ground-glass infiltrates. Some subpleural reticular scarring remains. There is a spiculated 1 cm mass-like area present in the superior segment of the right lower lobe which was not present previously and may be related to scarring or the residua of an infiltrate. Follow up on future exam is recommended. MEDIASTINUM: No mediastinal or hilar lymphadenopathy is seen. The heart size is normal. The thoracic aorta is unremarkable. PLEURA: There is no pleural effusion. No pleural mass or thickening. AXILLA: No lymphadenopathy. UPPER ABDOMEN: Unremarkable. OSSEOUS STRUCTURES: Unremarkable. CT/CT chest wo con IMPRESSION: Marked improvement in the multifocal peripheral ground-glass infiltrates consistent with resolving COVID-19 pneumonia. Some peripheral subpleural reticular scarring/atelectasis remains. A 1 cm pulmonary nodule that may represent the residua of an infiltrate. Continued follow-up is recommended in 3 months. 2017 Fleischner Society Recommendations for Lung Nodule(s): Follow up based on size (average of long- and short-axis diameters). Use most suspicious nodule for follow up. Single Solid lung nodule > 8 mm: Consider non-contrast Chest CT at 3 months, PET/CT, or tissue sampling. These guidelines do not apply to patients younger than 35 years, immunocompromised patients, and patients with cancer. F/u in patients with significant comorbidities as clinically warranted. For lung cancer screening, adhere to Lung-RADS guidelines. Reference: Radiology 2017 April; 284(1):228-243 Fleischner guidelines were followed.
== END 2021-12-01 13:07 | disposition home or self-care (01) ==
LOC: HO.CT 13:06
PROVIDERS: Visit Provider Internal Medicine Pulmonary Disease
DX: R07.9 Chest pain, unspecified (principal)
CPT/HCPCS: 71250

== ENCOUNTER → 2021-12-07 15:40 | Outpatient (BNVA) | payer OTHER, SELFPAY | PROVIDERS: PCP Nurse Practitioner Family; Visit Provider Internal Medicine Pulmonary Disease | DX: R91.1 Solitary pulmonary nodule (principal); I42.7 Cardiomyopathy due to drug and external agent; T45.1X5A Adverse effect of antineoplastic and immunosuppressive drugs, initial encounter; Y92.9 Unspecified place or not applicable; U09.9 Post COVID-19 condition, unspecified; J12.82 Pneumonia due to coronavirus disease 2019; E55.9 Vitamin D deficiency, unspecified; Z85.3 Personal history of malignant neoplasm of breast; Z92.21 Personal history of antineoplastic chemotherapy | CPT/HCPCS: 99212 ==

== ENCOUNTER 2021-12-13 13:10 | Outpatient (REF) | payer OTHER, SELFPAY ==
--- NOTE | ~2021-12-13 | PE_ITS ---
EXAMINATION: Fluorine-18 FDG PET/CT Scan CLINICAL INDICATION: Initial treatment management. Solitary pulmonary nodule. PROCEDURE: 78 minutes following the intravenous administration of 17.8 mCi of fluorine 18 FDG, images of the whole body were obtained using a combined PET/CT scanner with CT scan based attenuation correction. No oral contrast was administered. No intravenous contrast was administered. Transverse, coronal, sagittal, and volume reconstruction projections were obtained. The patient's blood glucose as determined by a finger stick, was 83 mg/dl immediately prior to injection. Total CT exam dose-length product 758.17 mGy-cm * These CT images were obtained using dose optimization techniques as appropriate, variously including the following: Automated exposure control * Adjustment of mA and/or kV according to patient size (this includes techniques or standardized protocols for targeted exams where dose is matched to indication/reason for exam; i.e. extremities or head) * Use of iterative reconstruction technique COMPARISON: No previous PET/CT scan is available for comparison. CT scan of the chest dated 12/01/2021 is available for comparison. FINDINGS: (Slice numbers described in this report are numbered superiorly to inferiorly with slice #1 in the head) NECK AND VISUALIZED HEAD: No foci of abnormal FDG activity are noted. The distribution of FDG activity is physiological. There is no cervical lymphadenopathy. THORAX: There is a 0.8 x 0.6 cm nodule in the superior segment of the right lower lobe. This is too small to be characterized on the FDG PET images. No additional nodules are visualized. There is scarring in the apices bilaterally, more prominently on the right. There are no foci of abnormal FDG activity within the chest. There is no pleural or pericardial fluid, or pneumothorax. There are no mediastinal, supraclavicular, or axillary lymphadenopathy. There are several metallic surgical clips in the left breast with no associated abnormal FDG activity. ABDOMEN AND PELVIS: There are no foci of abnormal FDG activity in the abdomen or pelvis. There is mild FDG activity throughout the gastrointestinal tract without a suspicious focal component. There is diverticulosis without evidence of diverticulitis. The hollow viscera are otherwise unremarkable. The liver, gallbladder, spleen, kidneys, adrenal glands, and pancreas are unremarkable. There is no retroperitoneal, mesenteric, pelvic or inguinal lymphadenopathy. MUSCULOSKELETAL: No foci of mildly increased FDG activity in the anterolateral aspects of adjacent regions of the right fifth and sixth ribs associated with healing fractures visible at these sites on the corresponding CT images. No other foci of abnormal FDG activity are present in the osseous structures. VASCULAR: No significant abnormalities are present. PET/PET CT fusion whole body IMPRESSION: 1. A subcentimeter nodule in the superior segment of the right lower lobe is too small to be characterized on the FDG PET images. If biopsy of this nodule is not obtained, follow-up with diagnostic CT imaging in approximately 6 months is recommended. 2. Healing fractures in the anterolateral aspects of the right fifth and sixth ribs are mildly FDG avid. 3. No additional abnormalities suspicious for metastatic or other malignant lesions are noted.
== END 2021-12-13 13:11 | disposition home or self-care (01) ==
LOC: HO.PET 13:10
PROVIDERS: Visit Provider Internal Medicine Pulmonary Disease
DX: Z13.89 Encounter for screening for other disorder (principal)

== ENCOUNTER 2021-12-20 10:29 | Outpatient (REF) | payer OTHER, SELFPAY ==
--- NOTE | ~2021-12-20 | US_ITS ---
EXAMINATION: US ABDOMEN COMPLETE CLINICAL INFORMATION: Unspecified abdominal pain. COMPARISON: Comparison is made to limited images from a PET scan dated 12/13/2021. TECHNIQUE: Real-time imaging of the abdominal viscera. FINDINGS: PANCREAS: The pancreatic parenchyma appears within normal limits in the head body and tail. However, the pancreatic duct appears enlarged, measuring 0.3 cm.. ABDOMINAL AORTA: The proximal, mid, and distal segments are normal in caliber. INFERIOR VENA CAVA: Visualized portions are normal. LIVER: Normal. The liver is normal in size. The liver contour is normal. Parenchymal echogenicity is normal. No focal hepatic lesion. There is no intrahepatic biliary duct dilatation seen. GALLBLADDER: Normal. The gallbladder is physiologically distended without evidence of stones, sludge, polyps, wall thickening or pericholecystic fluid. COMMON BILE DUCT: Normal in caliber measuring 0.4 cm in diameter. RIGHT KIDNEY: Normal. No hydronephrosis. No renal calculi or focal parenchymal lesions. The kidney measures 8.7 cm in maximum dimension. LEFT KIDNEY: Normal. No hydronephrosis. No renal calculi or focal parenchymal lesions. The kidney measures 9.7 cm in maximum dimension. SPLEEN: Normal. The spleen measures 8.3 cm in maximum dimension. FREE FLUID: None. US/US abdomen complete IMPRESSION: 1. The pancreatic duct appears enlarged, measuring 0.3 cm. The etiology for this enlargement is unclear from the current study. The common bile duct appears normal in diameter. Further investigation to exclude obstruction is recommended.
== END 2021-12-20 10:30 | disposition home or self-care (01) ==
LOC: HO.US 10:29
PROVIDERS: PCP Nurse Practitioner Family; Visit Provider Nurse Practitioner Family
DX: R10.9 Unspecified abdominal pain (principal)
CPT/HCPCS: 76700

== ENCOUNTER 2022-02-08 13:11 | Outpatient (REF) | payer OTHER, SELFPAY ==
--- NOTE | ~2022-02-08 | CT_ITS ---
EXAMINATION: CT CHEST WITHOUT CONTRAST CLINICAL INFORMATION: Solitary pulmonary nodule. COMPARISON: CT chest 12/03/[address] 12/14/2021. TECHNIQUE: Multidetector volumetric CT imaging of the chest was done. Axial MIP volume rendering provided. Sagittal and coronal reformatted images were obtained. This CT examination was performed using dose optimization techniques as appropriate, variously including the following: *Automated exposure control. *Adjustment of mA and/or kV according to patient size (this includes techniques or standardized protocols for targeted exams where dose is matched to indication/reason for exam; i.e. extremities or head). *Use of iterative reconstruction technique. DLP: 166 mGy-cm FINDINGS: GRAIN UNLOADER MACHINE: Well-inflated lungs. LUNGS: There is a superior segment right lower lobe 7 mm spiculated lesion slightly smaller from the previous exam that measured 1 cm. There is subpleural reticular stranding seen in both upper, lower lobes, right middle lobe and lingula. MEDIASTINUM: The thyroid lobes are symmetrical and normal. The central trachea and the bronchi are widely patent. Heart size, great vessels are normal. No pericardial effusion. No abnormal lymph nodes. PLEURA: There is no pleural effusion. No pleural mass or thickening. AXILLA: No abnormal lymph nodes seen. There are surgical jeane in the left central posterior breast. UPPER ABDOMEN: Visualized liver, spleen, pancreas and bilateral adrenal glands are unremarkable. OSSEOUS STRUCTURES: No lytic or sclerotic process seen. There are healing right anterior 5th and 6th rib fractures. CT/CT chest wo con IMPRESSION: Spiculated perivascular lesion in the superior segment of the right lower lobe appears smaller compared 12/01/2021. It measures 7 mm compared to 1 cm on the previous exam 12/01/2021. No new nodules seen. Bilateral subpleural reticular scarring throughout the lungs are stable. Fleischner guidelines were followed.
== END 2022-02-08 13:12 | disposition home or self-care (01) ==
LOC: HO.CT 13:11
PROVIDERS: PCP Internal Medicine; Visit Provider Internal Medicine Pulmonary Disease
DX: R91.1 Solitary pulmonary nodule (principal)
CPT/HCPCS: 71250

== ENCOUNTER 2023-01-17 19:11 | Emergency (ER) | payer OTHER, SELFPAY ==
[2023-01-17 20:22] VITALS: BP 154/104; PULSE 87; RESP 16; TEMP 36.6; O2SAT 98; BMI 26.5
--- NOTE | 2023-01-17 20:23 | ECG_ITS ---
Test Reason : HYPERTENSION Blood Pressure : / mmHG Vent. Rate : 081 BPM Atrial Rate : 081 BPM P-R Int : 130 ms QRS Dur : 074 ms QT Int : 362 ms P-R-T Axes : 066 010 033 degrees QTc Int : 420 ms Normal sinus rhythm Minimal voltage criteria for LVH, may be normal variant ( R in aVL ) Borderline ECG When compared with ECG of 09-NOV-2021 13:19, Nonspecific T wave abnormality now evident in Lateral leads Referred By: Kiki Pastor Electronically Signed By:CLAUDIA ROACH MD
--- NOTE | 2023-01-17 20:24 | ED_ITS ---
HPI - General Adult General Chief complaint: General Medical <LUIZ Hernández - Last Filed: 01/17/23 20:27> Stated complaint: high blood pressure, left arm pain <LUIZ Hernández - Last Filed: 01/17/23 20:27> Time Seen by Provider: 01/17/23 21:39 <LUIZ Hernández - Last Filed: 01/17/23 20:27> Source: patient <Sriram Christy MD - Last Filed: 01/18/23 00:03> Mode of arrival: ambulatory <Sriram Christy MD - Last Filed: 01/18/23 00:03> Limitations: no limitations <Sriram Christy MD - Last Filed: 01/18/23 00:03> History of Present Illness HPI narrative: Patient has no history of hypertension woke up in the a.m. with left arm pain no chest pain or palpitation check her blood pressure was elevated to 154/104 repeat blood pressure was 141/91 feels swollen took prednisone 2 weeks ago for 3 days take ibuprofen off and patient concerned about hypertension does have a family history of hypertension no NSAID intake no caffeine intake no headache chest pain or palpitation <Sriram Christy MD - Last Filed: 01/18/23 00:03> Related Data Home medications: Home Medications Medication Instructions Recorded Confirmed cholecalciferol (vitamin D3) 25 25 mcg PO DAILY 10/21/21 09/25/22 mcg (1,000 unit) tablet (Vitamin D3) thiamine HCl (vitamin B1) 100 mg 0.5 tab PO DAILY 06/01/22 09/25/22 tablet Previous Rx's Medication Instructions Recorded levalbuterol tartrate 45 2 puff inhalation Q4-6H PRN 11/08/21 mcg/actuation aerosol inhaler shortness of breath or wheezing (Xopenex HFA) #15 grams humidifiers #1 ea 11/09/21 sennosides 8.6 mg tablet (senna) 8.6 mg PO BID PRN constipation #30 11/09/21 tabs magnesium oxide 400 mg (241.3 mg 400 mg PO DAILY #30 tabs 03/16/22 magnesium) tablet anastrozole 1 mg tablet 1 mg PO DAILY #90 tabs 11/19/22 benzonatate 200 mg capsule 200 mg PO TID PRN for cough 30 11/20/22 days #60 caps potassium chloride 10 mEq 10 meq PO DAILY #30 caps 12/03/22 capsule,extended release hydrochlorothiazide 25 mg tablet 25 mg PO QAM #30 tabs 01/17/23 <LUIZ Hernández - Last Filed: 01/17/23 20:27> Allergies/adverse reactions: Allergies Allergy/AdvReac Type Severity Reaction Status Date / Time Penicillins Allergy Unknown Unknown Verified 09/25/22 15:37 oxycodone [From Percocet] AdvReac Mild Confusion Verified 09/25/22 15:37 minocycline AdvReac Unknown Unknown Verified 09/25/22 15:37 <LUIZ Hernández - Last Filed: 01/17/23 20:27> Review of Systems Review of Systems: Yes all other systems are reviewed and are negative <Sriram Christy MD - Last Filed: 01/18/23 00:03> [facility] Past Medical History Medical History: Medical History Breast cancer History of anxiety History of COVID-19 History of fibrocystic disease of breast History of pancytopenia History of seizures History of vitamin D deficiency Hx of alopecia Hx of breast cancer Hx of chronic inflammatory arthritis Hx of low back pain Hx of seasonal allergies Hx of sinusitis Hx of transfusion Iron deficiency anemia Seroma of breast <LUIZ Hernández - Last Filed: 01/17/23 20:27> Surgical History: Surgical History History of esophagogastroduodenoscopy (EGD) History of removal of Port-a-Cath Hx of section Hx of colonoscopy Hx of hysterectomy Hx of lumpectomy Hx of lymph node excision <LUIZ Hernández - Last Filed: 01/17/23 20:27> Family History Family History: Family History Mother Diabetes Hypertension Asthma Father Diabetes Paternal Grandfather Colon cancer Diabetes Hypertension Paternal Grandmother Diabetes Hypertension Maternal Grandmother Diabetes Hypertension Brother Diabetes <LUIZ Hernández - Last Filed: 01/17/23 20:27> Social History Social History: Social History Household Members: None Housing: Apartment Are you a primary personal care service provider to a significant other at home: No Do you presently have visiting nurse or other home services: No Alcohol intake: never Patient Tobacco Use Status: Never used Tobacco Smoked in Last 30 Days: No Use of substances other than those prescribed or required for medical reasons: No Advance Directives: No Advance Directives Information Provided: No Patient : No service: No Current occupational status: unemployed <LUIZ Hernández - Last Filed: 01/17/23 20:27> Physical Exam ED Vital Signs: Vital Signs - 24 hr 01/17/23 20:22 01/17/23 21:45 01/17/23 23:19 Temperature 98 F 97.8 F 98.0 F Pulse Rate 87 81 74 Respiratory Rate 16 20 18 Blood Pressure 154/104 H 150/87 H 137/85 Pulse Oximetry 98 99 98 Oxygen Delivery Method Room Air Room Air Room Air BMI result Body Mass Index 26.5 <LUIZ Hernández - Last Filed: 01/17/23 20:27> Vital Signs - 24 hr 01/17/23 20:22 01/17/23 21:45 01/17/23 23:19 Temperature 98 F 97.8 F 98.0 F Pulse Rate 87 81 74 Respiratory Rate 16 20 18 Blood Pressure 154/104 H 150/87 H 137/85 Pulse Oximetry 98 99 98 Oxygen Delivery Method Room Air Room Air Room Air BMI result Body Mass Index 26.5 <Sriram Christy MD - Last Filed: 01/18/23 00:03> Appearance: Alert. Oriented X3. No acute distress. Eyes: PERRLA, No Nystagmus ENT: Pharynx normal. Oral Mucosa moist Neck: Normal inspection. Neck supple. CVS: Normal heart rate and rhythm. Pulses normal. Respiratory: No respiratory distress. Equal air entry bilateral, no wheezing/rales/rhonchi Abdomen: Soft and nontender. Bowel sounds are present, no mass palpable, no CVA tenderness Skin: Skin warm and dry. Normal skin color. Normal skin turgor. Extremities: No lower extremity edema. No calf tenderness Neuro: Oriented X 3. No motor deficit. No sensory deficit.No cerebellar signs , cranial nerves II-XII intact <Sriram Christy MD - Last Filed: 01/18/23 00:03> Course Course Course Narrative: RME - 52 yo female with history of stage II breast cancer presenting to the ER for evaluation of elevated BP. She measured her BP at work and it was 145/111. She reports it was associated with left arm pain. No chest pain, headache or vision changes. Not on BP meds at home. Reports weight gain lately, but it's fluid. BP 150/110s. Plan: labs and EKG <LUIZ Hernández - Last Filed: 01/17/23 20:27> Medical Decision Making Medical Decision Making [facility] Narrative: Patient with borderline hypertension with family history of hypertension. Labs are stable patient advised to check blood pressure daily and start taking hydrochlorothiazide for blood pressure if elevated higher than 135/85 <Sriram Christy MD - Last Filed: 01/18/23 00:03> Lab Data [facility] Lab Attestation statement: I reviewed the patient's lab results. <Sriram Christy MD - Last Filed: 01/18/23 00:03> Result Diagrams: 01/17/23 20:39 01/17/23 20:39 <LUIZ Hernández - Last Filed: 01/17/23 20:27> Labs: Lab Results 01/17/23 01/17/23 01/17/23 Range/Units 20:39 20:39 20:39 WBC 7.8 (4.8-10.8) X10*3/uL RBC 4.19 L (4.20-5.50) X10*6/uL Hgb 12.2 (12.0-16.0) g/dl Hct 37.0 (37.0-47.0) % MCV 88.3 (80.0-98.0) fL MCH 29.1 (27.0-33.0) pg MCHC 33.0 (31.0-35.0) g/dl RDW 12.8 (11.0-16.0) % Plt Count 240 (160-400) X10*3/uL MPV 11.0 (9.4-12.3) fL Immature Gran % (Auto) 0.4 (0.0-0.4) % Neut % (Auto) 48.4 (45-73) % Lymph % (Auto) 39.5 (20-40) % [place] % (Auto) 7.1 (2-11) % Eos % (Auto) 3.8 (0-4) % Baso % (Auto) 0.8 (0-2) % Lymph # (Auto) 3.1 (1.2-4.9) X10*3/uL [place] # (Auto) 0.6 (0.1-1.2) X10*3/uL Eos # (Auto) 0.3 (0.0-0.4) X10*3/uL Baso # (Auto) 0.1 (0.0-0.2) X10*3/uL Abs Immat Gran (auto) 0.03 (0.00-0.03) X10*3/uL Absolute Neuts (auto) 3.8 (2.0-8.3) x10*3/uL Absolute Nucleated RBC 0.000 (0.0-0.012) X10*3/uL Nucleated RBC % (auto) 0.0 (0.0-0.2) /100WBC Sodium 145 (135-145) mmol/L Potassium 3.9 (3.3-5.1) mmol/L Chloride 106 (96-108) mmol/L Carbon Dioxide 29 (22-29) mmol/L Anion Gap 14 (12-20) BUN 17 H (9-16) mg/dL Creatinine 0.83 (0.5-1.4) mg/dL Estim Creat Clear Calc 71.3 Estimated GFR > 60 Random Glucose 107 (60-115) mg/dL Calcium 9.3 (8.4-10.2) mg/dL Magnesium 1.8 (1.6-2.6) mg/dL Total Bilirubin 0.4 (0.0-1.0) mg/dL Direct Bilirubin < 0.2 (0.0-0.5) mg/dL AST 19 (5-31) U/L ALT 18 (0-31) U/L Alkaline Phosphatase 98 (39-117) U/L Troponin I High Sens (<3.5-17.0) ng/L B-Natriuretic Peptide < 10 (<100) pg/mL Total Protein 6.9 (6.5-8.0) g/dL Albumin 4.1 (3.5-5.0) g/dL Urine Color Urine Appearance Urine pH (5.0-9.0) Ur Specific [place] (1.005-1.025) Urine Protein (Neg-Trace) mg/dL Urine Glucose (UA) (Negative) mg/dL Urine Ketones (Negative) mg/dL Urine Blood (Negative) Urine Nitrite (Negative) Ur Leukocyte Esterase (Negative) Urine RBC (0-2) /HPF Urine WBC (0-5) /HPF Ur Squamous Epith Cells (0-2) /HPF Urine Bacteria (None Seen) Hyaline Casts (0-2) /LPF 01/17/23 01/17/23 Range/Units 20:46 22:50 WBC (4.8-10.8) X10*3/uL RBC (4.20-5.50) X10*6/uL Hgb (12.0-16.0) g/dl Hct (37.0-47.0) % MCV (80.0-98.0) fL MCH (27.0-33.0) pg MCHC (31.0-35.0) g/dl RDW (11.0-16.0) % Plt Count (160-400) X10*3/uL MPV (9.4-12.3) fL Immature Gran % (Auto) (0.0-0.4) % Neut % (Auto) (45-73) % Lymph % (Auto) (20-40) % [place] % (Auto) (2-11) % Eos % (Auto) (0-4) % Baso % (Auto) (0-2) % Lymph # (Auto) (1.2-4.9) X10*3/uL [place] # (Auto) (0.1-1.2) X10*3/uL Eos # (Auto) (0.0-0.4) X10*3/uL Baso # (Auto) (0.0-0.2) X10*3/uL Abs Immat Gran (auto) (0.00-0.03) X10*3/uL Absolute Neuts (auto) (2.0-8.3) x10*3/uL Absolute Nucleated RBC (0.0-0.012) X10*3/uL Nucleated RBC % (auto) (0.0-0.2) /100WBC Sodium (135-145) mmol/L Potassium (3.3-5.1) mmol/L Chloride (96-108) mmol/L Carbon Dioxide (22-29) mmol/L Anion Gap (12-20) BUN (9-16) mg/dL Creatinine (0.5-1.4) mg/dL Estim Creat Clear Calc Estimated GFR Random Glucose (60-115) mg/dL Calcium (8.4-10.2) mg/dL Magnesium (1.6-2.6) mg/dL Total Bilirubin (0.0-1.0) mg/dL Direct Bilirubin (0.0-0.5) mg/dL AST (5-31) U/L ALT (0-31) U/L Alkaline Phosphatase (39-117) U/L Troponin I High Sens < 2.7 (<3.5-17.0) ng/L B-Natriuretic Peptide (<100) pg/mL Total Protein (6.5-8.0) g/dL Albumin (3.5-5.0) g/dL Urine Color Yellow Urine Appearance Clear Urine pH 7.0 (5.0-9.0) Ur Specific [place] 1.020 (1.005-1.025) Urine Protein Negative (Neg-Trace) mg/dL Urine Glucose (UA) Negative (Negative) mg/dL Urine Ketones Negative (Negative) mg/dL Urine Blood Negative (Negative) Urine Nitrite Negative (Negative) Ur Leukocyte Esterase Moderate (2+) H (Negative) Urine RBC 3-5 H (0-2) /HPF Urine WBC 6-10 H (0-5) /HPF Ur Squamous Epith Cells 0-2 (0-2) /HPF Urine Bacteria None Seen (None Seen) Hyaline Casts 0-2 (0-2) /LPF <LUIZ Hernández - Last Filed: 01/17/23 20:27> Lab Results 01/17/23 01/17/23 01/17/23 Range/Units 20:39 20:39 20:39 WBC 7.8 (4.8-10.8) X10*3/uL RBC 4.19 L (4.20-5.50) X10*6/uL Hgb 12.2 (12.0-16.0) g/dl Hct 37.0 (37.0-47.0) % MCV 88.3 (80.0-98.0) fL MCH 29.1 (27.0-33.0) pg MCHC 33.0 (31.0-35.0) g/dl RDW 12.8 (11.0-16.0) % Plt Count 240 (160-400) X10*3/uL MPV 11.0 (9.4-12.3) fL Immature Gran % (Auto) 0.4 (0.0-0.4) % Neut % (Auto) 48.4 (45-73) % Lymph % (Auto) 39.5 (20-40) % [place] % (Auto) 7.1 (2-11) % Eos % (Auto) 3.8 (0-4) % Baso % (Auto) 0.8 (0-2) % Lymph # (Auto) 3.1 (1.2-4.9) X10*3/uL [place] # (Auto) 0.6 (0.1-1.2) X10*3/uL Eos # (Auto) 0.3 (0.0-0.4) X10*3/uL Baso # (Auto) 0.1 (0.0-0.2) X10*3/uL Abs Immat Gran (auto) 0.03 (0.00-0.03) X10*3/uL Absolute Neuts (auto) 3.8 (2.0-8.3) x10*3/uL Absolute Nucleated RBC 0.000 (0.0-0.012) X10*3/uL Nucleated RBC % (auto) 0.0 (0.0-0.2) /100WBC Sodium 145 (135-145) mmol/L Potassium 3.9 (3.3-5.1) mmol/L Chloride 106 (96-108) mmol/L Carbon Dioxide 29 (22-29) mmol/L Anion Gap 14 (12-20) BUN 17 H (9-16) mg/dL Creatinine 0.83 (0.5-1.4) mg/dL Estim Creat Clear Calc 71.3 Estimated GFR > 60 Random Glucose 107 (60-115) mg/dL Calcium 9.3 (8.4-10.2) mg/dL Magnesium 1.8 (1.6-2.6) mg/dL Total Bilirubin 0.4 (0.0-1.0) mg/dL Direct Bilirubin < 0.2 (0.0-0.5) mg/dL AST 19 (5-31) U/L ALT 18 (0-31) U/L Alkaline Phosphatase 98 (39-117) U/L Troponin I High Sens (<3.5-17.0) ng/L B-Natriuretic Peptide < 10 (<100) pg/mL Total Protein 6.9 (6.5-8.0) g/dL Albumin 4.1 (3.5-5.0) g/dL Urine Color Urine Appearance Urine pH (5.0-9.0) Ur Specific [place] (1.005-1.025) Urine Protein (Neg-Trace) mg/dL Urine Glucose (UA) (Negative) mg/dL Urine Ketones (Negative) mg/dL Urine Blood (Negative) Urine Nitrite (Negative) Ur Leukocyte Esterase (Negative) Urine RBC (0-2) /HPF Urine WBC (0-5) /HPF Ur Squamous Epith Cells (0-2) /HPF Urine Bacteria (None Seen) Hyaline Casts (0-2) /LPF 01/17/23 01/17/23 Range/Units 20:46 22:50 WBC (4.8-10.8) X10*3/uL RBC (4.20-5.50) X10*6/uL Hgb (12.0-16.0) g/dl Hct (37.0-47.0) % MCV (80.0-98.0) fL MCH (27.0-33.0) pg MCHC (31.0-35.0) g/dl RDW (11.0-16.0) % Plt Count (160-400) X10*3/uL MPV (9.4-12.3) fL Immature Gran % (Auto) (0.0-0.4) % Neut % (Auto) (45-73) % Lymph % (Auto) (20-40) % [place] % (Auto) (2-11) % Eos % (Auto) (0-4) % Baso % (Auto) (0-2) % Lymph # (Auto) (1.2-4.9) X10*3/uL [place] # (Auto) (0.1-1.2) X10*3/uL Eos # (Auto) (0.0-0.4) X10*3/uL Baso # (Auto) (0.0-0.2) X10*3/uL Abs Immat Gran (auto) (0.00-0.03) X10*3/uL Absolute Neuts (auto) (2.0-8.3) x10*3/uL Absolute Nucleated RBC (0.0-0.012) X10*3/uL Nucleated RBC % (auto) (0.0-0.2) /100WBC Sodium (135-145) mmol/L Potassium (3.3-5.1) mmol/L Chloride (96-108) mmol/L Carbon Dioxide (22-29) mmol/L Anion Gap (12-20) BUN (9-16) mg/dL Creatinine (0.5-1.4) mg/dL Estim Creat Clear Calc Estimated GFR Random Glucose (60-115) mg/dL Calcium (8.4-10.2) mg/dL Magnesium (1.6-2.6) mg/dL Total Bilirubin (0.0-1.0) mg/dL Direct Bilirubin (0.0-0.5) mg/dL AST (5-31) U/L ALT (0-31) U/L Alkaline Phosphatase (39-117) U/L Troponin I High Sens < 2.7 (<3.5-17.0) ng/L B-Natriuretic Peptide (<100) pg/mL Total Protein (6.5-8.0) g/dL Albumin (3.5-5.0) g/dL Urine Color Yellow Urine Appearance Clear Urine pH 7.0 (5.0-9.0) Ur Specific [place] 1.020 (1.005-1.025) Urine Protein Negative (Neg-Trace) mg/dL Urine Glucose (UA) Negative (Negative) mg/dL Urine Ketones Negative (Negative) mg/dL Urine Blood Negative (Negative) Urine Nitrite Negative (Negative) Ur Leukocyte Esterase Moderate (2+) H (Negative) Urine RBC 3-5 H (0-2) /HPF Urine WBC 6-10 H (0-5) /HPF Ur Squamous Epith Cells 0-2 (0-2) /HPF Urine Bacteria None Seen (None Seen) Hyaline Casts 0-2 (0-2) /LPF <Sriram Christy MD - Last Filed: 01/18/23 00:03> Independent Interpretation I performed an independent interpretation of an: EKG <Sriram Christy MD - Last Filed: 01/18/23 00:03> Interpretation: Normal sinus rhythm heart rate 81 beats per minute mild LVH no ST- T-wave changes no acute ischemia <Sriram Christy MD - Last Filed: 01/18/23 00:03> Discharge Plan Discharge Clinical Impression: Hypertension <LUIZ Hernández - Last Filed: 01/17/23 20:27> Patient Disposition: Home, Self-Care <LUIZ Hernández - Last Filed: 01/17/23 20:27> Instructions: Chronic Hypertension (ED) <LUIZ Hernández - Last Filed: 01/17/23 20:27> Additional Instructions: Avoid caffeine and salt intake Exercise and try to reduce weight Check blood pressure daily , it should be less than 135/85 Start taking hydrochlorothiazide 25 mg daily for blood pressure control <LUIZ Hernández - Last Filed: 01/17/23 20:27> Prescriptions: New hydrochlorothiazide 25 mg tablet 25 mg PO QAM Qty: 30 2RF No Action anastrozole 1 mg Tablet 1 mg PO DAILY Qty: 90 4RF benzonatate 200 mg capsule 200 mg PO TID PRN (Reason: for cough) 30 Days Qty: 60 1RF magnesium oxide 400 mg (241.3 mg magnesium) tablet 400 mg PO DAILY Qty: 30 0RF thiamine HCl (vitamin B1) 100 mg tablet 0.5 tab PO DAILY potassium chloride 10 mEq capsule, extended release 10 meq PO DAILY Qty: 30 0RF cholecalciferol (vitamin D3) [Vitamin D3] 25 mcg (1,000 unit) Tablet 25 mcg PO DAILY (DME) humidifiers Misc See Rx Instructions .Route Qty: 1 0RF Rx Instructions: As directed sennosides [senna] 8.6 mg tablet 8.6 mg PO BID PRN (Reason: constipation) Qty: 30 0RF levalbuterol tartrate [Xopenex HFA] 45 mcg/actuation HFA aerosol inhaler 2 puff inhalation Q4-6H PRN (Reason: shortness of breath or wheezing) Qty: 15 0RF <LUIZ Hernández - Last Filed: 01/17/23 20:27> Interventions: ED Discharge Assessment Last Done: 01/17/23 23:40 <LUIZ Hernández - Last Filed: 01/17/23 20:27> Discharge Date/Time: 01/17/23 23:41 <LUIZ Hernández - Last Filed: 01/17/23 20:27>
[2023-01-17 20:50] LABS: MANUAL DIFF FLAG NO
[2023-01-17 20:55] LABS: Appearance Urine Clear; Color Urine Yellow; Glucose Urine UA Negative (Negative); Leukocyte Esterase Urine Moderate (2+) (Negative); Nitrite Urine Negative (Negative); UMIC TRIGGER UACC YES; Urine Blood Negative (Negative); Urine Ketones Negative (Negative); Urine Protein Negative (Neg-Trace)
[2023-01-17 20:56] LABS: Basophils Absolute Auto 0.1 X10*3/uL (0.0-0.2); Basophils Percent Auto 0.8 % (0-2); Eosinophils Absolute Auto 0.3 X10*3/uL (0.0-0.4); Eosinophils Percent Auto 3.8 % (0-4); Hemoglobin 12.2 g/dl (12.0-16.0); Imm Gran Abs Auto 0.03 X10*3/uL (0.00-0.03); Imm Gran Pct Auto 0.4 % (0.0-0.4); Lymphocytes Absolute Auto 3.1 X10*3/uL (1.2-4.9); Lymphocytes Percent Auto 39.5 % (20-40); Mean Corpuscular Hemoglobin 29.1 pg (27.0-33.0); Mean Corpuscular Volume 88.3 fL (80.0-98.0); Monocytes Absolute Auto 0.6 X10*3/uL (0.1-1.2); Monocytes Percent Auto 7.1 % (2-11); Neutrophils Absolute Auto 3.8 x10*3/uL (2.0-8.3); Neutrophils Percent Auto 48.4 % (45-73); Platelet Count 240 X10*3/uL (160-400); Red Blood Count 4.19 X10*6/uL (4.20-5.50); Red Cell Distribution Width 12.8 % (11.0-16.0); White Blood Count 7.8 X10*3/uL (4.8-10.8)
[2023-01-17 21:00] LABS: Bacteria Urine None Seen (None Seen); Hyaline Casts Urine 0-2 /LPF (0-2); Squamous Epithelial Cell Urine 0-2 /HPF (0-2); UACC Culture Trigger YES
[2023-01-17 21:13] LABS: Alanine Aminotransferase 18 U/L (0-31); Albumin Level 4.1 g/dL (3.5-5.0); Alkaline Phosphatase 98 U/L (39-117); Anion Gap 14 (12-20); Aspartate Amino Transferase 19 U/L (5-31); Bilirubin Direct < 0.2 mg/dL (0.0-0.5); Bilirubin Total 0.4 mg/dL (0.0-1.0); Blood Urea Nitrogen 17 mg/dL (9-16); Calcium 9.3 mg/dL (8.4-10.2); Carbon Dioxide 29 mmol/L (22-29); Chloride 106 mmol/L (96-108); Creatinine Clr Calc Pharmacy 71.3; Estimated Glomerular Filt Rate > 60; Glucose Random 107 mg/dL (60-115); Magnesium 1.8 mg/dL (1.6-2.6); Potassium 3.9 mmol/L (3.3-5.1); Sodium 145 mmol/L (135-145); Total Protein 6.9 g/dL (6.5-8.0)
[2023-01-17 21:17] LABS: B Type Natriuretic Peptide < 10 pg/mL (<100)
[2023-01-17 21:45] VITALS: BP 150/87; PULSE 81; RESP 20; TEMP 36.6; O2SAT 99
--- NOTE | 2023-01-17 21:45 | PC.NURSE ---
this rn assumed care of pt @ 2139. pt changed into hospital attire. resting on stretcher at this time. awaiting to be seen by ed provider
[2023-01-17 23:19] VITALS: BP 137/85; PULSE 74; RESP 18; TEMP 36.7; O2SAT 98
[2023-01-17 23:27] LABS: Troponin-I High Sensitivity < 2.7 ng/L (<3.5-17.0)
== END 2023-01-17 23:41 | disposition home or self-care (01) ==
PROVIDERS: Physician Assistant; Emergency Provider Internal Medicine
DX: I10 Essential (primary) hypertension (principal)
CPT/HCPCS: 36415; 80048; 80076; 81001; 83735; 83880; 84484; 85025; 87086; 93005; 99283; 99284

== ENCOUNTER 2024-09-10 15:46 | Outpatient (REF) | payer OTHER, SELFPAY ==
[2024-09-12 09:49] LABS: CA 27.29 93 U/mL (<38)
== END 2024-09-10 15:47 | disposition home or self-care (01) ==
LOC: HO.LAB 15:46
PROVIDERS: PCP Internal Medicine; Visit Provider Internal Medicine Medical Oncology
DX: R91.1 Solitary pulmonary nodule (principal); K76.9 Liver disease, unspecified
CPT/HCPCS: 36415; 86300

== ENCOUNTER 2024-09-23 18:07 | Emergency (ER) | payer OTHER, SELFPAY ==
--- NOTE | ~2024-09-23 | CT_ITS ---
EXAMINATION: CT ANGIOGRAM CHEST CLINICAL INFORMATION: Breast cancer. Shortness of breath. COMPARISON: CT chest 02/08/2022. PET/CT 12/13/2021. TECHNIQUE: Multiple axial images were obtained through the chest after the administration of 65 mL of Omnipaque 350 intravenous contrast. Extensive vascular post-processing including two-dimensional and three-dimensional reformatted images were created and reviewed on an independent workstation. This CT examination was performed using dose optimization techniques as appropriate, variously including the following: *Automated exposure control *Adjustment of mA and/or kV according to patient size (this includes techniques or standardized protocols for targeted exams where dose is matched to indication/reason for exam; i.e. extremities or head) *Use of iterative reconstruction technique DLP: 218 mGy-cm FINDINGS: Pulmonary arterial system: High density intraluminal contrast opacification of the visualized pulmonary arterial system is noted. Within the visualized pulmonary arterial system, no intraluminal filling defects are noted to suggest the presence of pulmonary emboli. The main and central pulmonary arteries are normal in caliber. Aorta: Normal caliber of the thoracic aorta. Lungs and pleura: No pleural effusions or pneumothoraces. Minimal bibasilar dependent atelectasis of the lungs. No focal pulmonary consolidation. Scattered subpleural reticular opacities within the lung bases similar findings present for 03/05/2022. Mediastinum: No lymphadenopathy. Normal heart size. No coronary artery calcific atherosclerotic plaques identified. No pericardial thickening or pericardial fluid collections. CHEST WALL: At least 4 prominent left axillary lymph nodes are noted, the largest demonstrating a short axis diameter of 1.3 cm. Findings are new compared with 02/08/2022. Focal clips are noted within the left breast. Visualized abdominal structures: The liver is partially included within the imaged field of view. Double-J rounded low density foci measuring up to approximately 2 cm in diameter noted within the liver. Thereafter osseous structures: A vague 1.5 cm diameter sclerotic focus is present within the T10 vertebral body. CT/CT angio chest PE protocol IMPRESSION: *CT pulmonary angiogram negative for pulmonary emboli. *Findings suspicious for possible metastatic disease. Multiple enlarged left axillary lymph nodes are noted. Additionally, in the insula visualized portions of the liver multiple vague rounded low density foci measuring up to 2 cm in diameter present. Furthermore, a 2 cm vaguely sclerotic focus is identified in the T10 vertebral body. These findings are new compared with CT of the chest 02/08/2022 and could represent metastatic disease. Procedural clips are noted within the left breast and may relate to breast biopsy or lumpectomy. 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 Findings there is characterized by scattered predominantly subpleural pulmonary reticular opacities unchanged compared with 02/08/2022. VTE: Negative Electronically signed by: Haim Hinojosa MD 09/24/2024 03:33 AM [facility]
--- NOTE | 2024-09-23 18:20 | ED_ITS ---
HPI - Abdominal Pain General Chief Complaint: Back Pain/Injury Stated Complaint: left lwr abd pain Time Seen by Provider: 09/23/24 23:47 Source: patient Mode of arrival: ambulatory Limitations: no limitations History of Present Illness ED Provider: HPI narrative: Patient's history of breast cancer in remission comes here with pain in left lower chest for last 2 days started all of a sudden increases on deep inspiration no cough no shortness a breath no fever no chills no history of blood clots in the past Related Data Home Medications ?Medication ?Instructions ?Recorded ?Confirmed thiamine HCl (vitamin B1) 100 mg 0.5 tab PO DAILY 06/01/22 07/21/24 tablet Previous Rx's ?Medication ?Instructions ?Recorded levalbuterol tartrate 45 2 puff inhalation Q4-6H PRN 11/08/21 mcg/actuation aerosol inhaler shortness of breath or wheezing (Xopenex HFA) #15 grams humidifiers #1 ea 11/09/21 sennosides 8.6 mg tablet (senna) 8.6 mg PO BID PRN constipation #30 11/09/21 tabs magnesium oxide 400 mg (241.3 mg 400 mg PO DAILY #30 tabs 03/16/22 magnesium) tablet benzonatate 200 mg capsule 200 mg PO TID PRN for cough 30 11/20/22 days #60 caps potassium chloride 10 mEq 10 meq PO DAILY #30 caps 12/03/22 capsule,extended release hydrochlorothiazide 25 mg tablet 25 mg PO QAM #30 tabs 01/17/23 cholecalciferol (vitamin D3) 25 25 mcg PO DAILY #90 tabs 09/18/23 mcg (1,000 unit) tablet (Vitamin D3) anastrozole 1 mg tablet 1 mg PO DAILY #90 tabs 07/21/24 cefuroxime axetil 500 mg tablet 500 mg PO BID 7 days #14 tabs 09/24/24 ibuprofen 600 mg tablet 600 mg PO Q6H PRN fever or pain 09/24/24 #30 tabs Allergies Allergy/AdvReac Type Severity Reaction Status Date / Time Penicillins Allergy Unknown Unknown Verified 09/23/24 18:24 oxycodone [From Percocet] AdvReac Mild Confusion Verified 09/23/24 18:24 minocycline AdvReac Unknown Unknown Verified 09/23/24 18:24 Review of Systems Review of Systems Yes all other systems are reviewed and are negative FOR[facility]LY [facility] Past Medical History Medical History History of fibrocystic disease of breast Iron deficiency anemia History of COVID-19 Breast cancer Hx of seasonal allergies Hx of chronic inflammatory arthritis Hx of alopecia History of vitamin D deficiency Hx of sinusitis History of anxiety History of seizures Hx of low back pain Seroma of breast Hx of transfusion History of pancytopenia Hx of breast cancer Surgical History History of esophagogastroduodenoscopy (EGD) Hx of colonoscopy History of removal of Port-a-Cath Hx of lymph node excision Hx of lumpectomy Hx of hysterectomy Hx of section Family History Family History Mother Diabetes Hypertension Asthma Father Diabetes Paternal Grandfather Colon cancer Diabetes Hypertension Paternal Grandmother Diabetes Hypertension Maternal Grandmother Diabetes Hypertension Brother Diabetes Social History Social History Household Members: None Housing: Apartment Are you a primary out of school hours care worker to a significant other at home: No Do you presently have visiting nurse or other home services: No Alcohol intake: never Patient Tobacco Use Status: Never used Tobacco Smoked in Last 30 Days: No Use of substances other than those prescribed or required for medical reasons: No Advance Directives: No Advance Directives Information Provided: No service: No Current occupational status: unemployed Physical Exam ED Vital Signs: Vital Signs - 24 hr 09/23/24 18:21 09/24/24 00:06 09/24/24 03:24 Temperature 97.2 F 98.1 F Pulse Rate 99 85 98 Respiratory Rate 20 16 16 Blood Pressure 143/105 H 150/91 H 129/77 Pulse Oximetry 99 98 97 Oxygen Delivery Method Room Air Room Air Room Air BMI result Body Mass Index 25.6 Appearance: Alert. Oriented X3. No acute distress. Eyes: PERRLA, No Nystagmus ENT: Pharynx normal. Oral Mucosa moist Neck: Normal inspection. Neck supple. CVS: Normal heart rate and rhythm. Pulses normal. Respiratory: No respiratory distress. Equal air entry bilateral, no wheezing/rales/rhonchi tenderness right lower chest in the posterior area Abdomen: Soft and nontender. Bowel sounds are present, no mass palpable, no CVA tenderness Skin: Skin warm and dry. Normal skin color. Normal skin turgor. Extremities: No lower extremity edema. No calf tenderness Neuro: Oriented X 3. No motor deficit. No sensory deficit.No cerebellar signs , cranial nerves II-XII intact Course Course Course Narrative: This is an RME: Additional HPI, ROS, PE not included below will be deferred to primary provider. RME assessment and note performed by: Mary Miller PA-C This is a 13-kjms-vsl-female, with a hx of left breast cancer followed by Dr. Musa, who presents emergency department for evaluation of left sided back pain, worsening with inspirations for the last 2 days. No known injury or trauma. Patient reports that the pain worsens with deep inspiration Plan: labs, ua, ekg, further er eval needed Reevaluation(s) Reevaluation #1: no PE discussed abnormal CT scan results with patient she is aware plan to follow with [facility] Medical Decision Making Medical Decision Making [facility] Narrative: Patient's history of breast cancer with acute onset of left lower chest pain possible PE although this no shortness a breath currently isn't remission also urine shows WBCs 21-50 with no bacteria will start on Rocephin IV pending CT scan of the chest to rule out PE Dr. Muñiz to check CTA Differential Diagnosis Differential Diagnoses: The differential diagnosis associated with the presentation includes Pyelonephritis/kidney stone/PE/pneumonia Lab Data [facility] Lab Attestation statement: I reviewed the patient's lab results. 09/23/24 19:15 09/23/24 19:15 Labs: Lab Results 09/23/24 09/24/24 Range/Units 19:15 01:37 WBC 8.6 (4.8-10.8) X10*3/uL RBC 4.31 (4.20-5.50) X10*6/uL Hgb 12.6 (12.0-16.0) g/dl Hct 37.4 (37.0-47.0) % MCV 86.8 (80.0-98.0) fL MCH 29.2 (27.0-33.0) pg MCHC 33.7 (31.0-35.0) g/dl RDW 13.2 (11.0-16.0) % Plt Count 234 (160-400) X10*3/uL MPV 10.2 (9.4-12.3) fL Immature Gran % (Auto) 0.3 (0.0-0.4) % Neut % (Auto) 61.8 (45-73) % Lymph % (Auto) 28.5 (20-40) % [place] % (Auto) 8.0 (2-11) % Eos % (Auto) 0.7 (0-4) % Baso % (Auto) 0.7 (0-2) % Lymph # (Auto) 2.5 (1.2-4.9) X10*3/uL [place] # (Auto) 0.7 (0.1-1.2) X10*3/uL Eos # (Auto) 0.1 (0.0-0.4) X10*3/uL Baso # (Auto) 0.1 (0.0-0.2) X10*3/uL Abs Immat Gran (auto) 0.03 (0.00-0.03) X10*3/uL Absolute Neuts (auto) 5.3 (2.0-8.3) x10*3/uL Absolute Nucleated RBC 0.000 (0.0-0.012) X10*3/uL Nucleated RBC % (auto) 0.0 (0.0-0.2) /100WBC PT 12.3 (10.9-12.4) SEC INR 1.1 (0.9-1.1) Sodium 141 (135-145) mmol/L Potassium 3.4 (3.3-5.1) mmol/L Chloride 102 (96-108) mmol/L Carbon Dioxide 27 (22-29) mmol/L Anion Gap 15 (12-20) BUN 10 (9-16) mg/dL Creatinine 0.87 (0.5-1.4) mg/dL Estim Creat Clear Calc 66.2 Estimated GFR > 60 Random Glucose 83 (60-115) mg/dL Calcium 9.2 (8.4-10.2) mg/dL Magnesium 2.1 (1.6-2.6) mg/dL Total Bilirubin 0.5 (0.0-1.0) mg/dL Direct Bilirubin 0.2 (0.0-0.5) mg/dL AST 76 H (5-31) U/L ALT 102 H (0-31) U/L Alkaline Phosphatase 249 H (39-117) U/L Troponin I High Sens < 2.7 (<3.5-17.0) ng/L Total Protein 7.6 (6.5-8.0) g/dL Albumin 4.1 (3.5-5.0) g/dL Lipase 20 (8-78) U/L Urine Color Yellow Urine Appearance Clear Urine pH 6.0 (5.0-9.0) Ur Specific [place] 1.015 (1.005-1.025) Urine Protein Negative (Neg-Trace) mg/dL Urine Glucose (UA) Negative (Negative) mg/dL Urine Ketones 40 (Negative) mg/dL Urine Blood Negative (Negative) Urine Nitrite Negative (Negative) Ur Leukocyte Esterase Moderate (2+) H (Negative) Urine RBC 0-2 (0-2) /HPF Urine WBC 21-50 H (0-5) /HPF Ur Squamous Epith Cells 0-2 (0-2) /HPF Urine Bacteria None Seen (None Seen) Hyaline Casts 0-2 (0-2) /LPF Influenza Type A (PCR) NEGATIVE (Negative) Influenza Type B (PCR) NEGATIVE (Negative) RSV RNA Qual (PCR) NEGATIVE (Negative) SARS-CoV-2 RNA (RT-PCR) NEGATIVE (Negative) Medications Administered Discontinued Medications Generic Name Dose Route Start Last Admin Trade Name Freq PRN Reason Stop Dose Admin Ceftriaxone Sodium 1 gm 09/24/24 01:59 09/24/24 04:17 Ceftriaxone Sodium 1 Gm Vial IVPUSH 09/24/24 02:00 1 gm ONCE ONE Administration Iohexol 65 ml 09/24/24 02:21 09/24/24 02:21 Iohexol 350 Mg/Ml 100 Ml Infus..Btl IV 09/24/24 02:22 65 ml ONCE ONE Administration Ketorolac Tromethamine 15 mg 09/24/24 04:20 09/24/24 04:21 Ketorolac Tromethamine 15 Mg/Ml Vial IVPUSH 09/24/24 04:21 15 mg ONCE ONE Administration Ondansetron HCl 4 mg 09/24/24 04:29 09/24/24 04:32 Ondansetron Hcl 4 Mg/2 Ml Vial IVPUSH 09/24/24 04:30 4 mg ONCE ONE Administration Discharge Plan Discharge Clinical Impression: UTI (urinary tract infection), Flank pain Patient Disposition: Still a Patient Instructions: Urinary Tract Infection in Women (ED), Flank Pain (ED) Additional Instructions: Drink plenty of fluid Antibiotic as prescribed Tylenol/ibuprofen for pain Report to ER if increased pain/vomiting/fever YOU NEED TO FOLLOW UP WITH DR. MUSA GIVEN THE MRI AND CT SCAN RESULTS - CALL OFFICE TODAY WE WILL CALL YOU WITH CULTURE RESULTS - IF NEGATIVE CAN HOLD ANTIBIOTICS Prescriptions: New cefuroxime axetil 500 mg tablet 500 mg PO BID 7 Days Qty: 14 0RF ibuprofen 600 mg tablet 600 mg PO Q6H PRN (Reason: fever or pain) Qty: 30 0RF No Action benzonatate 200 mg capsule 200 mg PO TID PRN (Reason: for cough) 30 Days Qty: 60 1RF magnesium oxide 400 mg (241.3 mg magnesium) tablet 400 mg PO DAILY Qty: 30 0RF thiamine HCl (vitamin B1) 100 mg tablet 0.5 tab PO DAILY potassium chloride 10 mEq capsule, extended release 10 meq PO DAILY Qty: 30 0RF cholecalciferol (vitamin D3) [Vitamin D3] 25 mcg (1,000 unit) Tablet 25 mcg PO DAILY Qty: 90 4RF anastrozole 1 mg Tablet 1 mg PO DAILY Qty: 90 4RF (DME) humidifiers Misc See Rx Instructions .Route Qty: 1 0RF Rx Instructions: As directed sennosides [senna] 8.6 mg tablet 8.6 mg PO BID PRN (Reason: constipation) Qty: 30 0RF levalbuterol tartrate [Xopenex HFA] 45 mcg/actuation HFA aerosol inhaler 2 puff inhalation Q4-6H PRN (Reason: shortness of breath or wheezing) Qty: 15 0RF hydrochlorothiazide 25 mg tablet 25 mg PO QAM Qty: 30 2RF Interventions: ED Discharge Assessment Last Done: 09/24/24 05:24 Discharge Date/Time: 09/24/24 05:25 Print Language: [place]
[2024-09-23 18:21] VITALS: BP 143/105; PULSE 99; RESP 20; TEMP 36.2; O2SAT 99; BMI 25.6
--- NOTE | 2024-09-23 18:50 | ECG_ITS ---
Test Reason : cp Blood Pressure : / mmHG Vent. Rate : 086 BPM Atrial Rate : 086 BPM P-R Int : 120 ms QRS Dur : 072 ms QT Int : 340 ms P-R-T Axes : 044 -02 017 degrees QTc Int : 406 ms Normal sinus rhythm Minimal voltage criteria for LVH, may be normal variant ( R in aVL ) Borderline ECG When compared to the previous EKG of No significant changes seen Referred By: Mary Miller Electronically Signed By:CLAUDIA ROACH MD
[2024-09-23 19:24] LABS: MANUAL DIFF FLAG NO
[2024-09-23 19:30] LABS: Basophils Absolute Auto 0.1 X10*3/uL (0.0-0.2); Basophils Percent Auto 0.7 % (0-2); Eosinophils Absolute Auto 0.1 X10*3/uL (0.0-0.4); Eosinophils Percent Auto 0.7 % (0-4); Hematocrit 37.4 % (37.0-47.0); Hemoglobin 12.6 g/dl (12.0-16.0); Imm Gran Abs Auto 0.03 X10*3/uL (0.00-0.03); Imm Gran Pct Auto 0.3 % (0.0-0.4); Lymphocytes Absolute Auto 2.5 X10*3/uL (1.2-4.9); Lymphocytes Percent Auto 28.5 % (20-40); Mean Corpuscular HGB Conc 33.7 g/dl (31.0-35.0); Mean Corpuscular Hemoglobin 29.2 pg (27.0-33.0); Mean Corpuscular Volume 86.8 fL (80.0-98.0); Mean Platelet Volume 10.2 fL (9.4-12.3); Monocytes Absolute Auto 0.7 X10*3/uL (0.1-1.2); Neutrophils Absolute Auto 5.3 x10*3/uL (2.0-8.3); Neutrophils Percent Auto 61.8 % (45-73); Platelet Count 234 X10*3/uL (160-400); Red Blood Count 4.31 X10*6/uL (4.20-5.50); Red Cell Distribution Width 13.2 % (11.0-16.0); White Blood Count 8.6 X10*3/uL (4.8-10.8)
[2024-09-23 19:40] LABS: INTERNATIONAL NORM RATIO 1.1 (0.9-1.1); Prothrombin Time 12.3 SEC (10.9-12.4)
[2024-09-23 19:44] LABS: Alanine Aminotransferase 102 U/L (0-31); Albumin Level 4.1 g/dL (3.5-5.0); Alkaline Phosphatase 249 U/L (39-117); Anion Gap 15 (12-20); Aspartate Amino Transferase 76 U/L (5-31); Bilirubin Direct 0.2 mg/dL (0.0-0.5); Bilirubin Total 0.5 mg/dL (0.0-1.0); Blood Urea Nitrogen 10 mg/dL (9-16); Calcium 9.2 mg/dL (8.4-10.2); Carbon Dioxide 27 mmol/L (22-29); Chloride 102 mmol/L (96-108); Creatinine Clr Calc Pharmacy 66.2; Estimated Glomerular Filt Rate > 60; Glucose Random 83 mg/dL (60-115); Lipase 20 U/L (8-78); Magnesium 2.1 mg/dL (1.6-2.6); Potassium 3.4 mmol/L (3.3-5.1); Sodium 141 mmol/L (135-145); Total Protein 7.6 g/dL (6.5-8.0)
[2024-09-23 19:51] LABS: Troponin-I High Sensitivity < 2.7 ng/L (<3.5-17.0)
[2024-09-23 20:03] LABS: Influenza A PCR NEGATIVE (Negative); Influenza B PCR NEGATIVE (Negative); Resp Syncy Virus RNA Qual PCR NEGATIVE (Negative); SARS COV2 PCR INHOUSE NEGATIVE (Negative)
[2024-09-24 00:06] VITALS: BP 150/91; PULSE 85; RESP 16; O2SAT 98
[2024-09-24 01:45] LABS: Appearance Urine Clear; Color Urine Yellow; Glucose Urine UA Negative (Negative); Leukocyte Esterase Urine Moderate (2+) (Negative); Nitrite Urine Negative (Negative); Specific Gravity - Urine 1.015 (1.005-1.025); UMIC TRIGGER UACC YES; Urine Blood Negative (Negative); Urine Ketones 40 mg/dL (Negative); Urine Protein Negative (Neg-Trace)
[2024-09-24 01:49] LABS: Bacteria Urine None Seen (None Seen); Hyaline Casts Urine 0-2 /LPF (0-2); RBC Urine 0-2 /HPF (0-2); Squamous Epithelial Cell Urine 0-2 /HPF (0-2); UACC Culture Trigger YES; WBC Urine 21-50 /HPF (0-5)
[2024-09-24] MEDS: iohexoL 350 MG/ML 100 ML INFUS..BTL 65 ML IV (02:21)
[2024-09-24 03:24] VITALS: BP 129/77; PULSE 98; RESP 16; TEMP 36.7; O2SAT 97
[2024-09-24] MEDS: cefTRIAXone sodium 1 GM VIAL IVPUSH (04:17)
[2024-09-24] MEDS: Ketorolac Tromethamine 15 MG/ML VIAL IVPUSH (04:21)
[2024-09-24] MEDS: ondansetron HCL 4 MG/2 ML VIAL IVPUSH (04:32)
--- NOTE | 2024-09-24 04:36 | PC.NURSE ---
medicated per dec, notified EMIR reyes
[2024-09-24 04:47] VITALS: BP 136/83; PULSE 86; RESP 20; TEMP 36.8; O2SAT 97
[2024-09-24 05:24] VITALS: BP 136/83; PULSE 86; RESP 20; TEMP 36.8; O2SAT 97
== END 2024-09-24 05:25 | disposition still patient (30) ==
PROVIDERS: Physician Assistant Medical; Emergency Provider Internal Medicine; PCP Internal Medicine
DX: N39.0 Urinary tract infection, site not specified (principal); R10.9 Unspecified abdominal pain; M54.9 Dorsalgia, unspecified; R07.1 Chest pain on breathing; C50.919 Malignant neoplasm of unspecified site of unspecified female breast; Z03.818 Encounter for observation for suspected exposure to other biological agents ruled out; Z79.899 Other long term (current) drug therapy
CPT/HCPCS: 0241U; 36415; 71275; 80048; 80076; 81001; 83690; 83735; 84484; 85025; 85610; 87086; 93005; 96374; 96375; 99284; 99285; J0696; J1885; J2405; Q9967

== ENCOUNTER → 2024-09-23 18:50 | Outpatient (BNV) | payer OTHER, SELFPAY | PROVIDERS: Emergency Provider Internal Medicine; PCP Internal Medicine; Visit Provider Internal Medicine Cardiovascular Disease | DX: R07.9 Chest pain, unspecified (principal) | CPT/HCPCS: 93010 ==